=== PATIENT | male | born 1950 | race Caucasian/White ===

== ENCOUNTER 2018-12-26 22:57 | Inpatient (IN) ==
[2018-12-27] MEDS ORDERED: CEFEPIME 2,000 MG in SODIUM CHLORIDE 0.9% 100 ML IV STA (00:26)
[2018-12-27] MEDS ORDERED: VANCOMYCIN INJ 1,750 MG in SODIUM CHLORIDE 0.9% 250 ML IV STA (00:26)
[2018-12-27] MEDS ORDERED: metroNIDAZOLE INJ 500 MG in PREMIX 1 EACH IV STA (00:26)
[2018-12-27] MEDS ORDERED: SODIUM CHLORIDE 0.9% 1,000 ML IV STA ×2 (00:26→03:45)
[2018-12-27 00:33] LABS: Basophils % 0.4 % (0.0-0.8); Eosinophils % 0.1 % (0.00-10.9); Hematocrit 35.7 VOL% (42.0-52.0); Hemoglobin 11.5 GM/DL (14.0-18.0); Immature Granulocytes % 1.7 %; Immature Granulocytes Absolute 0.14 #; Lymphocytes # 0.4 10*3/uL (1.4-4.0); Lymphocytes % 5.1 % (21.2-54.2); Mean Corpuscular HGB Conc 32.2 GM/DL (32-36); Mean Corpuscular Volume 89.7 FL (87-102); Mean Platelet Volume 9.9 FL (9.6-12.0); Monocytes % 2.8 % (1.7-12.7); Neutrophils % 89.9 % (38.7-73.9); Platelet Count 253 T/CUMM (130-400); Red Blood Count 3.98 MC/CUMM (3.8-5.5); Red Cell Distribution Width 14.8 % (9.3-17.3); White Blood Count 8.1 T/CUMM (4-12)
[2018-12-27] MEDS ORDERED: VANCOMYCIN INJ 1,750 MG in SODIUM CHLORIDE 0.9% 500 ML IV STA (00:34)
[2018-12-27] MEDS ORDERED: KETOROLAC 30 MG/1 ML VIAL IV STA (00:35)
[2018-12-27] MEDS ORDERED: ACETAMINOPHEN 500 MG TABLET PO STA (00:35)
[2018-12-27 00:56] LABS: Band Neutrophils 9 % (0-10); Lymphocytes 2 % (20-55); Segmented Neutrophils 87 % (50-85); Total Cells Counted 100
[2018-12-27 00:57] LABS: Anisocytosis Slight; Platelet Estimate Adequate
[2018-12-27 01:07] LABS: Apearance,Urine CLOUDY (Clear); Bacteria,Urine Many /HPF (Few); Bilirubin,Urine Negative (Negative); Blood, Urine Moderate mg/dL (Negative); Glucose,Urine (UA) Negative (Negative); Ketones,Urine 5 mg/dL (Negative); Mucus,Urine Moderate /LPF (Occasional); Nitrite,Urine Positive (Negative); Protein,Urine 30 MG/DL; RBC,Urine 4 /HPF (0-4); Squamous Epithelial Cell,Urine Occasional /HPF (0-10); Urine Color Yellow (Yellow); Urine Specific Gravity 1.017 (1.001-1.035); Urine Urobilinogen < 2.0 EU/DL (0.2-1.0); WBC,Urine 487 /HPF (0-6)
[2018-12-27 01:37] LABS: Albumin 2.7 G/DL (3.4-5.0); Bilirubin,Total 0.6 MG/DL (0.2-1.0); Calcium 7.7 MG/DL (8.5-10.1); Osmolality,Calculated 281.1 MOS/KG (273-304); Total Protein 5.7 G/DL (6.4-8.3)
[2018-12-27] MEDS ORDERED: ACETAMINOPHEN 325 MG TABLET PO PRN (03:48)
[2018-12-27] MEDS ORDERED: ONDANSETRON 4 MG/2 ML VIAL IV PRN (03:48)
[2018-12-27] MEDS ORDERED: NOREPINEPHRINE 8 MG in SODIUM CHLORIDE 0.9% 242 ML IV PRN (04:01)
[2018-12-27] MEDS: SODIUM CHLORIDE 0.9% 1,000 ML IV SCH ×2 (04:51→14:55)
[2018-12-27] MEDS: POTASSIUM CHLORIDE RIDER 10 MEQ in PREMIX 1 EACH IV PRN ×3 (08:09→11:54)
[2018-12-27] MEDS: CEFEPIME 2,000 MG in SYRINGE 1 EACH IV SCH ×2 (10:14→17:38)
[2018-12-27] MEDS ORDERED: metroNIDAZOLE INJ 500 MG in PREMIX 1 EACH IV SCH (12:00)
[2018-12-27] MEDS: SODIUM CHLOR 0.9% KCL 20 MEQ 20 MEQ/1,000 ML BAG IV SCH ×2 (13:36→23:21)
[2018-12-27] MEDS: VANCOMYCIN INJ 1,500 MG in SODIUM CHLORIDE 0.9% 500 ML IV SCH (15:43)
[2018-12-27] MEDS: METOPROLOL TARTRATE 25 MG TABLET PO SCH (21:39)
[2018-12-28] MEDS: CEFEPIME 2,000 MG in SYRINGE 1 EACH IV SCH ×3 (00:24→17:58)
[2018-12-28] MEDS: VANCOMYCIN INJ 1,500 MG in SODIUM CHLORIDE 0.9% 500 ML IV SCH ×2 (04:05→15:56)
[2018-12-28 04:28] LABS: Basophils % 0.3 % (0.0-0.8); Eosinophils # 0.1 10*3/uL (0.0-0.87); Eosinophils % 1.4 % (0.00-10.9); Hematocrit 31.7 VOL% (42.0-52.0); Hemoglobin 10.1 GM/DL (14.0-18.0); Immature Granulocytes % 0.6 %; Immature Granulocytes Absolute 0.04 #; Lymphocytes % 13.7 % (21.2-54.2); Mean Corpuscular HGB Conc 31.9 GM/DL (32-36); Mean Corpuscular Volume 90.1 FL (87-102); Mean Platelet Volume 10.2 FL (9.6-12.0); Monocytes % 9.8 % (1.7-12.7); Neutrophils % 74.2 % (38.7-73.9); Platelet Count 203 T/CUMM (130-400); Red Blood Count 3.52 MC/CUMM (3.8-5.5); Red Cell Distribution Width 15.3 % (9.3-17.3); White Blood Count 7.2 T/CUMM (4-12)
[2018-12-28 05:08] LABS: Albumin 2.3 G/DL (3.4-5.0); Bilirubin,Total 0.5 MG/DL (0.2-1.0); Calcium 6.8 MG/DL (8.5-10.1); Osmolality,Calculated 279.3 MOS/KG (273-304); Risk Ratio 2.93; Thyroid Stimulating Hormone 4.24 uIU/ml (0.358-3.74); Total Protein 5.3 G/DL (6.4-8.3)
[2018-12-28 05:37] LABS: Sedimentation Rate-Westergren 65 MM/HR (0-20)
[2018-12-28] MEDS: POTASSIUM CHLORIDE RIDER 10 MEQ in PREMIX 1 EACH IV PRN ×3 (05:38→13:09)
[2018-12-28] MEDS: METOPROLOL TARTRATE 25 MG TABLET PO SCH ×2 (08:58→21:46)
[2018-12-28] MEDS: Lenalidomide [Revlimid] 5 MG PO SCH (09:06)
[2018-12-28] MEDS: SODIUM CHLOR 0.9% KCL 20 MEQ 20 MEQ/1,000 ML BAG IV SCH ×2 (13:53→20:15)
[2018-12-29] MEDS: CEFEPIME 2,000 MG in SYRINGE 1 EACH IV SCH ×3 (01:44→16:44)
[2018-12-29] MEDS: VANCOMYCIN INJ 1,750 MG in SODIUM CHLORIDE 0.9% 500 ML IV SCH ×2 (04:24→16:51)
[2018-12-29] MEDS: SODIUM CHLOR 0.9% KCL 20 MEQ 20 MEQ/1,000 ML BAG IV SCH ×3 (04:27→16:48)
[2018-12-29 04:54] LABS: Basophils # 0.1 10*3/uL (0.0-0.2); Basophils % 0.9 % (0.0-0.8); Eosinophils # 0.3 10*3/uL (0.0-0.87); Eosinophils % 5.6 % (0.00-10.9); Hematocrit 33.2 VOL% (42.0-52.0); Hemoglobin 10.5 GM/DL (14.0-18.0); Immature Granulocytes % 0.2 %; Immature Granulocytes Absolute 0.01 #; Lymphocytes # 0.9 10*3/uL (1.4-4.0); Lymphocytes % 15.9 % (21.2-54.2); Mean Corpuscular HGB Conc 31.6 GM/DL (32-36); Mean Corpuscular Volume 90.2 FL (87-102); Mean Platelet Volume 10.4 FL (9.6-12.0); Monocytes % 9.2 % (1.7-12.7); Neutrophils % 68.2 % (38.7-73.9); Platelet Count 215 T/CUMM (130-400); Red Blood Count 3.68 MC/CUMM (3.8-5.5); Red Cell Distribution Width 15.3 % (9.3-17.3); White Blood Count 5.6 T/CUMM (4-12)
[2018-12-29 05:25] LABS: Albumin 2.1 G/DL (3.4-5.0); Calcium 7.6 MG/DL (8.5-10.1); Total Protein 5.3 G/DL (6.4-8.3)
[2018-12-29] MEDS: METOPROLOL TARTRATE 25 MG TABLET PO SCH ×2 (08:35→21:09)
[2018-12-29] MEDS: Lenalidomide [Revlimid] 5 MG PO SCH (08:37)
[2018-12-30] MEDS: SODIUM CHLOR 0.9% KCL 20 MEQ 20 MEQ/1,000 ML BAG IV SCH ×3 (01:02→15:48)
[2018-12-30] MEDS: CEFEPIME 2,000 MG in SYRINGE 1 EACH IV SCH (01:02)
[2018-12-30] MEDS: VANCOMYCIN INJ 1,750 MG in SODIUM CHLORIDE 0.9% 500 ML IV SCH (05:00)
[2018-12-30] MEDS ORDERED: LEVOFLOXACIN INJ 500 MG in PREMIX 1 EACH IV SCH (08:30)
[2018-12-30] MEDS: METOPROLOL TARTRATE 25 MG TABLET PO SCH (10:35)
[2018-12-30] MEDS: Lenalidomide [Revlimid] 5 MG PO SCH (10:35)
[2018-12-30 11:31] VITALS: BP 142/82
[2018-12-30] MEDS ORDERED: POTASSIUM CHLORIDE 10 MEQ TABLET PO SCH (21:00)
[2018-12-31] MEDS ORDERED: LEVOFLOXACIN 500 MG TABLET PO SCH (09:00)
== END 2018-12-30 17:05 | disposition home or self-care (01) | DRG 699 ==
LOC: EDUNIT# → EDBD → N.ED 22:57 → N.EDINP 12-27 03:39 → N.ICU 12-27 04:16 → N.4E 12-27 14:37
PROVIDERS: ADMIT Family Medicine; ATTEND Family Medicine

== ENCOUNTER 2019-01-07 22:38 | Inpatient (IN) ==
[2019-01-07 23:33] LABS: Basophils # 0.1 10*3/uL (0.0-0.2); Basophils % 1.6 % (0.0-0.8); Eosinophils # 0.1 10*3/uL (0.0-0.87); Eosinophils % 1.7 % (0.00-10.9); Hematocrit 41.3 VOL% (42.0-52.0); Hemoglobin 13.2 GM/DL (14.0-18.0); Immature Granulocytes % 0.7 %; Immature Granulocytes Absolute 0.05 #; Lymphocytes # 1.9 10*3/uL (1.4-4.0); Lymphocytes % 24.9 % (21.2-54.2); Mean Corpuscular Volume 88.1 FL (87-102); Mean Platelet Volume 9.7 FL (9.6-12.0); Monocytes % 10.6 % (1.7-12.7); Neutrophils % 60.5 % (38.7-73.9); Platelet Count 428 T/CUMM (130-400); Red Blood Count 4.69 MC/CUMM (3.8-5.5); Red Cell Distribution Width 15.8 % (9.3-17.3); White Blood Count 7.6 T/CUMM (4-12)
[2019-01-07 23:45] LABS: PT Patient Result 10.7 SECS; Partial Thromboplastin Time 28.5 SECS (0-40)
[2019-01-07 23:57] LABS: Albumin 3.4 G/DL (3.4-5.0); Bilirubin,Total 0.4 MG/DL (0.2-1.0); Calcium 9.6 MG/DL (8.5-10.1); Osmolality,Calculated 275.7 MOS/KG (273-304); Total Protein 7.3 G/DL (6.4-8.3)
[2019-01-08] MEDS ORDERED: FUROSEMIDE 100 MG/10 ML VIAL IV STA (00:56)
[2019-01-08] MEDS ORDERED: methylPREDNISolone SOD SUC 125 MG/2 ML VIAL IV STA (00:56)
[2019-01-08] MEDS ORDERED: ALBUTEROL/IPRATROPIUM 3 ML NEB RESP TX STA (00:56)
[2019-01-08] MEDS ORDERED: ENOXAPARIN 100 MG/ML SYRINGE SUBCUT STA ×2 (01:23→01:43)
[2019-01-08] MEDS ORDERED: ACETAMINOPHEN 325 MG TABLET PO PRN (02:16)
[2019-01-08] MEDS ORDERED: ONDANSETRON 4 MG/2 ML VIAL IV PRN (02:16)
[2019-01-08] MEDS ORDERED: ALBUTEROL/IPRATROPIUM 3 ML NEB RESP TX PRN (02:16)
[2019-01-08] MEDS ORDERED: MORPHINE 4 MG/1 ML VIAL IV PRN (02:16)
[2019-01-08] MEDS: SODIUM CHLORIDE 0.9% 1,000 ML IV SCH (02:33)
[2019-01-08 04:42] LABS: Basophils # 0.1 10*3/uL (0.0-0.2); Basophils % 1.4 % (0.0-0.8); Eosinophils # 0.1 10*3/uL (0.0-0.87); Eosinophils % 0.7 % (0.00-10.9); Hematocrit 42.7 VOL% (42.0-52.0); Hemoglobin 13.8 GM/DL (14.0-18.0); Immature Granulocytes % 0.7 %; Immature Granulocytes Absolute 0.06 #; Lymphocytes # 1.2 10*3/uL (1.4-4.0); Lymphocytes % 14.5 % (21.2-54.2); Mean Corpuscular HGB Conc 32.3 GM/DL (32-36); Mean Corpuscular Volume 87.3 FL (87-102); Monocytes % 6.7 % (1.7-12.7); Platelet Count 440 T/CUMM (130-400); Red Blood Count 4.89 MC/CUMM (3.8-5.5); Red Cell Distribution Width 15.6 % (9.3-17.3); White Blood Count 8.1 T/CUMM (4-12)
[2019-01-08 05:01] LABS: Albumin 3.5 G/DL (3.4-5.0); Bilirubin,Total 0.6 MG/DL (0.2-1.0); Calcium 9.5 MG/DL (8.5-10.1); Osmolality,Calculated 276.5 MOS/KG (273-304); Risk Ratio 3.86; Total Protein 7.2 G/DL (6.4-8.3); VLDL CHOLESTEROL 16.4 MG/DL
[2019-01-08] MEDS: FUROSEMIDE 20 MG/2 ML VIAL IV SCH ×2 (08:38→15:02)
[2019-01-08] MEDS: DOCUSATE SODIUM 100 MG CAPSULE PO SCH ×2 (08:38→22:38)
[2019-01-08] MEDS: PANTOPRAZOLE 40 MG TABLET PO SCH (08:38)
[2019-01-08] MEDS: SOTALOL 80 MG TABLET PO SCH ×2 (08:38→22:38)
[2019-01-08 09:23] LABS: Troponin I < 0.015 NG/ML (0.00-0.045)
[2019-01-08] MEDS: ASPIRIN EC 81 MG TABLET PO SCH (10:00)
[2019-01-08] MEDS: POTASSIUM CHLORIDE 20 MEQ TABLET PO PRN ×3 (10:00→14:55)
[2019-01-08 13:04] LABS: Apearance,Urine CLEAR (Clear); Bilirubin,Urine Negative (Negative); Blood, Urine Moderate mg/dL (Negative); Glucose,Urine (UA) Negative (Negative); Ketones,Urine Negative (Negative); Nitrite,Urine Negative (Negative); Protein,Urine Negative; Urine Color Yellow (Yellow); Urine Specific Gravity 1.012 (1.001-1.035); Urine Urobilinogen < 2.0 EU/DL (0.2-1.0)
[2019-01-08 13:09] LABS: Bacteria,Urine Rare /HPF (Few); RBC,Urine Rare /HPF (0-4); WBC,Urine Rare /HPF (0-6)
[2019-01-08] MEDS ORDERED: ENOXAPARIN 100 MG/ML SYRINGE SUBCUT ONE (14:00)
[2019-01-08] MEDS ORDERED: ENOXAPARIN 40 MG/0.4 ML SYRINGE SUBCUT SCH (18:00)
[2019-01-08] MEDS ORDERED: ATORVASTATIN 20 MG TABLET PO SCH (21:00)
[2019-01-09 04:31] LABS: Basophils # 0.1 10*3/uL (0.0-0.2); Basophils % 0.8 % (0.0-0.8); Eosinophils # 0.1 10*3/uL (0.0-0.87); Eosinophils % 0.9 % (0.00-10.9); Hematocrit 38.7 VOL% (42.0-52.0); Hemoglobin 12.2 GM/DL (14.0-18.0); Immature Granulocytes % 0.8 %; Immature Granulocytes Absolute 0.06 #; Lymphocytes # 1.5 10*3/uL (1.4-4.0); Lymphocytes % 18.9 % (21.2-54.2); Mean Corpuscular HGB Conc 31.5 GM/DL (32-36); Mean Corpuscular Volume 89.2 FL (87-102); Monocytes % 13.2 % (1.7-12.7); Neutrophils % 65.4 % (38.7-73.9); Platelet Count 392 T/CUMM (130-400); Red Blood Count 4.34 MC/CUMM (3.8-5.5); Red Cell Distribution Width 15.5 % (9.3-17.3); White Blood Count 7.9 T/CUMM (4-12)
[2019-01-09 04:52] LABS: Albumin 3.1 G/DL (3.4-5.0); Bilirubin,Total 0.6 MG/DL (0.2-1.0); Calcium 9.2 MG/DL (8.5-10.1); Osmolality,Calculated 277.7 MOS/KG (273-304); Total Protein 6.4 G/DL (6.4-8.3)
[2019-01-09] MEDS ORDERED: diphenhydrAMINE CAP 25 MG CAPSULE PO ONE (06:00)
[2019-01-09] MEDS ORDERED: MAGNESIUM SULF RIDER 2 GM in PREMIX 1 EACH IV PRN (06:00)
[2019-01-09] MEDS ORDERED: DIAZEPAM 5 MG TABLET PO ONE (06:00)
[2019-01-09] MEDS: POTASSIUM CHLORIDE 20 MEQ TABLET PO PRN (06:07)
[2019-01-09] MEDS: SODIUM CHLORIDE 0.9% 1,000 ML IV SCH (08:01)
[2019-01-09] MEDS: FUROSEMIDE 20 MG/2 ML VIAL IV SCH ×2 (08:02→15:59)
[2019-01-09] MEDS: SOTALOL 80 MG TABLET PO SCH (08:02)
[2019-01-09] MEDS: ASPIRIN EC 81 MG TABLET PO SCH (08:03)
[2019-01-09] MEDS: PANTOPRAZOLE 40 MG TABLET PO SCH (08:04)
[2019-01-09] MEDS: DOCUSATE SODIUM 100 MG CAPSULE PO SCH (08:11)
[2019-01-09] MEDS ORDERED: LEVOFLOXACIN 500 MG TABLET PO SCH (09:00)
[2019-01-09] MEDS ORDERED: Lenalidomide [Revlimid] 5 MG PO SCH ×2 (09:00→21:00)
[2019-01-09] MEDS ORDERED: LIDOCAINE 1% 20 ML VIAL ONE (09:29)
[2019-01-09] MEDS ORDERED: MIDAZOLAM 2 MG/2 ML VIAL ONE (09:30)
[2019-01-09] MEDS ORDERED: fentaNYL 100 MCG/2 ML VIAL ONE (09:30)
[2019-01-09 15:22] VITALS: BP 112/61
[2019-01-09] MEDS ORDERED: APIXABAN 5 MG TABLET PO SCH (21:00)
[2019-01-09] MEDS ORDERED: POTASSIUM CHLORIDE 10 MEQ TABLET PO SCH (21:00)
[2019-01-10] MEDS ORDERED: ENOXAPARIN 40 MG/0.4 ML SYRINGE SUBCUT SCH (05:00)
== END 2019-01-09 18:40 | disposition home or self-care (01) | DRG 287 ==
LOC: N.EDINP 22:38 → N.ED 22:38 → N.TELES 01-08 01:52
PROVIDERS: ADMIT Family Medicine; ATTEND Family Medicine

== ENCOUNTER 2019-01-15 09:00 | Inpatient (IN) ==
[~2019-01-15 09:00] MED LIST: CEFUROXIME INJ 1,500 MG in SYRINGE 1 EACH IV ONE; CLORAZEPATE 7.5 MG TABLET PO PRN; DEXTROSE 50% 25 GM/50 ML VIAL IV PRN; GLUCAGON 1 MG VIAL IM PRN; LENALIDOMIDE 5 MG PO SCH; ZALEPLON 5 MG CAPSULE PO PRN
[2019-01-15] MEDS: POTASSIUM CHLORIDE 10 MEQ TABLET PO SCH ×2 (10:37→20:15)
[2019-01-15] MEDS: CHLORHEXIDINE 4% SOLN 118 ML BOTTLE TOP SCH (10:43)
[2019-01-15] MEDS: SOTALOL 80 MG TABLET PO SCH ×2 (10:43→20:15)
[2019-01-15 10:47] LABS: Basophils # 0.1 10*3/uL (0.0-0.2); Basophils % 0.9 % (0.0-0.8); Eosinophils # 0.3 10*3/uL (0.0-0.87); Eosinophils % 3.9 % (0.00-10.9); Hematocrit 41.4 VOL% (42.0-52.0); Hemoglobin 12.9 GM/DL (14.0-18.0); Immature Granulocytes % 0.8 %; Immature Granulocytes Absolute 0.05 #; Lymphocytes # 1.4 10*3/uL (1.4-4.0); Lymphocytes % 22.6 % (21.2-54.2); Mean Corpuscular HGB Conc 31.2 GM/DL (32-36); Mean Platelet Volume 9.9 FL (9.6-12.0); Neutrophils % 61.8 % (38.7-73.9); Platelet Count 301 T/CUMM (130-400); Red Cell Distribution Width 15.3 % (9.3-17.3); White Blood Count 6.3 T/CUMM (4-12)
[2019-01-15] MEDS ORDERED: CEFUROXIME INJ 1,500 MG in SYRINGE 1 EACH IV ONE (11:00)
[2019-01-15 11:28] LABS: Albumin 3.1 G/DL (3.4-5.0); Bilirubin,Total 0.4 MG/DL (0.2-1.0); Calcium 8.9 MG/DL (8.5-10.1); Osmolality,Calculated 278.4 MOS/KG (273-304); Total Protein 6.5 G/DL (6.4-8.3)
[2019-01-15 12:14] LABS: ABG Base Excess 0.8 MMOL/L (-2.5-2.5); ABG Oxygen Saturation 96.1 % (95-100); ABG PCO2 34.1 MM HG (35-48); ABG PH 7.457 (7.35-7.45); ABG PO2 79.4 MM HG (80-95); ABG TCO2 20.9 MMOL/L (23-27)
[2019-01-15] MEDS: CHLORHEXIDINE 0.12% ORAL RINSE 60 ML BOTTLE SWISH/SPIT SCH ×2 (15:19→20:42)
[2019-01-15] MEDS ORDERED: SODIUM PHOSPHATE ENEMA 133 ML BOTTLE RECTAL ONE ×2 (20:25→20:32)
[2019-01-15] MEDS ORDERED: ATORVASTATIN 20 MG TABLET PO SCH (21:00)
[2019-01-16] MEDS ORDERED: PAPAVERINE 60 MG/2 ML VIAL ONE (04:29)
[2019-01-16] MEDS ORDERED: VANCOMYCIN 1,000 MG VIAL ONE (04:29)
[2019-01-16] MEDS: SODIUM CHLORIDE 0.9% 1,000 ML IV SCH ×2 (05:44→19:09)
[2019-01-16] MEDS ORDERED: CEFUROXIME INJ 1,500 MG in SYRINGE 1 EACH IV ONE (06:00)
[2019-01-16] MEDS ORDERED: FAMOTIDINE 20 MG TABLET PO ONE (06:00)
[2019-01-16] MEDS ORDERED: DIAZEPAM 5 MG TABLET PO ONE (06:00)
[2019-01-16 07:57] LABS: ABG Base Excess -0.8 MMOL/L (-2.5-2.5); ABG HCO3 23.8 MMOL/L (20-26); ABG Oxygen Saturation 99.6 % (95-100); ABG PCO2 37.4 MM HG (35-48); ABG PH 7.407 (7.35-7.45); ABG TCO2 20.6 MMOL/L (23-27); Glucose Heart Surgery 121 MG/DL (74-106); Hematocrit Heart Surgery 38.8 PERCENT (42-52); Hemoglobin Heart Surgery 12.6 G/DL (14.0-18.0); Ionized Calcium Arterial 1.17 MMOL/L (1.21-1.46); PCO2 Patient Temp Arterial 37.4 MMHG; PH Patient Temp Arterial 7.407; Patient Temperature 37 CELCIUS; Potassium Heart/CVR 3.9 MMOL/L (3.5-5.1); Sodium Heart/CVR 138 MMOL/L (135-145)
[2019-01-16 09:28] LABS: Hematocrit Heart Surgery 28.7 PERCENT (42-52); Hemoglobin Heart Surgery 9.3 G/DL (14.0-18.0); PCO2 Patient Temp Venous 31.9 MM HG; PH Patient Temp Venous 7.463; PO2 Patient Temp Venous 42.9 MM HG; Potassium Heart/CVR 4.8 MMOL/L (3.5-5.1); VBG Base Excess -0.4 MEQ/L (0-4); VBG HCO3 23.9 MEQ/L (24-28); VBG Oxygen Saturation 86.8 %; VBG PCO2 36.9 MMHG (41-51); VBG PH 7.419; VBG PO2 52.7 MMHG (17-40)
[2019-01-16] MEDS ORDERED: PHENYLEPHRINE DRIP 40 MG/250 ML PREMIX IV ONE (10:01)
[2019-01-16] MEDS ORDERED: NITROPRUSSIDE 50 MG/2 ML VIAL ONE (10:01)
[2019-01-16] MEDS ORDERED: ALBUMIN 5% 12.5 GM/250 ML VIAL IV ONE (10:02)
[2019-01-16] MEDS ORDERED: SODIUM BICARBONATE 50 MEQ/50 ML VIAL IV ONE ×2 (10:02→10:43)
[2019-01-16] MEDS ORDERED: POTASSIUM CHLORIDE RIDER 100 ML IV ONE (10:02)
[2019-01-16 10:03] LABS: Hemoglobin Heart Surgery 10.9 G/DL (14.0-18.0); PCO2 Patient Temp Venous 38.5 MM HG; PH Patient Temp Venous 7.418; PO2 Patient Temp Venous 45.7 MM HG; Potassium Heart/CVR 5.5 MMOL/L (3.5-5.1); VBG Base Excess -0.1 MEQ/L (0-4); VBG HCO3 24.3 MEQ/L (24-28); VBG Oxygen Saturation 79.2 %; VBG PCO2 38.5 MMHG (41-51); VBG PH 7.418; VBG PO2 45.7 MMHG (17-40)
[2019-01-16 10:31] LABS: ABG Base Excess -2.1 MMOL/L (-2.5-2.5); ABG HCO3 22.7 MMOL/L (20-26); ABG PCO2 38.2 MM HG (35-48); ABG PH 7.381 (7.35-7.45); ABG TCO2 20.5 MMOL/L (23-27); Glucose Heart Surgery 174 MG/DL (74-106); Hemoglobin Heart Surgery 10.7 G/DL (14.0-18.0); Ionized Calcium Arterial 1.25 MMOL/L (1.21-1.46); PCO2 Patient Temp Arterial 38.2 MMHG; PH Patient Temp Arterial 7.381; Patient Temperature 37 CELCIUS; Potassium Heart/CVR 4.5 MMOL/L (3.5-5.1); Sodium Heart/CVR 137 MMOL/L (135-145)
[2019-01-16] MEDS ORDERED: MANNITOL 100 GM/500 ML BAG IV ONE (10:43)
[2019-01-16] MEDS ORDERED: PROTAMINE SULFATE 250 MG/25 ML VIAL IV ONE (10:43)
[2019-01-16] MEDS ORDERED: ALBUMIN 25% 25 GM/100 ML VIAL IV ONE (10:43)
[2019-01-16] MEDS ORDERED: DEXTROSE 5% KCL 20 MEQ 20 MEQ/1,000 ML BAG IV ONE (10:43)
[2019-01-16] MEDS ORDERED: MAGNESIUM SULFATE 5 GM/10 ML VIAL IV ONE (10:44)
[2019-01-16] MEDS ORDERED: PROTAMINE SULFATE 50 MG/5 ML VIAL IV ONE ×2 (10:44→11:21)
[2019-01-16] MEDS ORDERED: methylPREDNISolone SOD SUC 1,000 MG/8 ML VIAL ONE (10:44)
[2019-01-16] MEDS ORDERED: HEPARIN 10,000 UNIT/10 ML VIAL ONE (10:44)
[2019-01-16] MEDS ORDERED: FUROSEMIDE 20 MG/2 ML VIAL ONE (10:44)
[2019-01-16] MEDS ORDERED: SUFentanil 50 MCG/ML AMP ONE (10:45)
[2019-01-16] MEDS ORDERED: PHENYLEPHRINE DRIP 40 MG/250 ML PREMIX IV PRN (11:20)
[2019-01-16] MEDS ORDERED: MORPHINE 10 MG/1 ML VIAL IV PRN (11:20)
[2019-01-16] MEDS ORDERED: PHENYLEPHRINE DRIP 20 MG/250 ML PREMIX IV ONE (11:20)
[2019-01-16] MEDS ORDERED: VECURONIUM 10 MG VIAL IV ONE (11:20)
[2019-01-16] MEDS ORDERED: MAGNESIUM SULF RIDER 4 GM in PREMIX 1 EACH IV PRN (11:20)
[2019-01-16] MEDS ORDERED: NITROPRUSSIDE 100 MG in DEXTROSE 5% 250 ML IV PRN (11:20)
[2019-01-16] MEDS ORDERED: ONDANSETRON 4 MG/2 ML VIAL IV PRN (11:20)
[2019-01-16] MEDS ORDERED: MIDAZOLAM 10 MG/2 ML VIAL IV PRN (11:20)
[2019-01-16] MEDS ORDERED: VECURONIUM 10 MG VIAL IV PRN ×2 (11:20)
[2019-01-16] MEDS ORDERED: SEVOFLURANE 1 UNIT/15 MINUTE INH ONE (11:20)
[2019-01-16] MEDS ORDERED: ACETAMINOPHEN 650 MG SUPP RECTAL PRN (11:20)
[2019-01-16] MEDS ORDERED: MIDAZOLAM 10 MG/2 ML VIAL ONE (11:20)
[2019-01-16] MEDS ORDERED: DEXTROSE 50% 25 GM/50 ML SYRINGE IV PRN ×2 (11:20)
[2019-01-16] MEDS ORDERED: INSULIN REGULAR 100 UNIT/ML IV ONE (11:20)
[2019-01-16] MEDS ORDERED: LACTATED RINGERS 250 ML IV PRN (11:20)
[2019-01-16] MEDS ORDERED: CALCIUM CHLORIDE 1,000 MG/10 ML SYRINGE IV PRN (11:20)
[2019-01-16] MEDS ORDERED: MAGNESIUM SULF RIDER 2 GM in PREMIX 1 EACH IV PRN (11:20)
[2019-01-16] MEDS ORDERED: MORPHINE 4 MG/1 ML VIAL IV PRN (11:20)
[2019-01-16] MEDS ORDERED: INSULIN REGULAR 100 UNIT/ML IV PRN (11:20)
[2019-01-16] MEDS ORDERED: SUFentanil 250 MCG/5 ML AMP ONE (11:20)
[2019-01-16] MEDS ORDERED: MIDAZOLAM 2 MG/2 ML VIAL IV PRN (11:20)
[2019-01-16] MEDS ORDERED: CALCIUM CHLORIDE 1,000 MG/10 ML VIAL IV ONE (11:20)
[2019-01-16] MEDS ORDERED: HEPARIN/NACL 0.9% 2 UNITS/ML 500 ML IV ONE (11:21)
[2019-01-16] MEDS ORDERED: SODIUM CHLORIDE 0.9% 100 ML IV ONE (11:21)
[2019-01-16] MEDS ORDERED: SODIUM CHLORIDE 0.9% 250 ML IV ONE (11:21)
[2019-01-16] MEDS ORDERED: AMINOCAPROIC ACID 5,000 MG/20 ML VIAL ONE (11:21)
[2019-01-16] MEDS ORDERED: SODIUM CHLORIDE 0.9% 1,000 ML IV ONE (11:21)
[2019-01-16] MEDS ORDERED: SODIUM CHLORIDE 0.45% 1,000 ML IV SCH ×2 (11:30)
[2019-01-16] MEDS ORDERED: INSULIN REGULAR DRIP 100 ML IV SCH (11:30)
[2019-01-16] MEDS: KETOROLAC 30 MG/1 ML VIAL IV SCH ×2 (11:36→17:27)
[2019-01-16] MEDS: ALBUMIN 5% 12.5 GM in PREMIX 1 EACH IV PRN ×4 (11:45→15:17)
[2019-01-16] MEDS ORDERED: AMIODARONE 150 MG/3 ML VIAL ONE (12:09)
[2019-01-16 12:12] LABS: ABG Base Excess -1.9 MMOL/L (-2.5-2.5); ABG HCO3 22.8 MMOL/L (20-26); ABG Oxygen Saturation 98.8 % (95-100); ABG PCO2 39.8 MM HG (35-48); ABG PH 7.372 (7.35-7.45); ABG TCO2 20.8 MMOL/L (23-27); Glucose Heart Surgery 157 MG/DL (74-106); Hematocrit Heart Surgery 34.1 PERCENT (42-52); Potassium Heart/CVR 3.9 MMOL/L (3.5-5.1)
[2019-01-16 12:16] LABS: Basophils # 0.1 10*3/uL (0.0-0.2); Basophils % 0.5 % (0.0-0.8); Eosinophils # 0.1 10*3/uL (0.0-0.87); Eosinophils % 1.4 % (0.00-10.9); Hematocrit 34.3 VOL% (42.0-52.0); Immature Granulocytes % 0.8 %; Immature Granulocytes Absolute 0.08 #; Lymphocytes # 1.2 10*3/uL (1.4-4.0); Lymphocytes % 12.7 % (21.2-54.2); Mean Corpuscular HGB Conc 31.8 GM/DL (32-36); Monocytes % 7.6 % (1.7-12.7); Platelet Count 229 T/CUMM (130-400); Red Blood Count 3.81 MC/CUMM (3.8-5.5); Red Cell Distribution Width 15.3 % (9.3-17.3); White Blood Count 9.7 T/CUMM (4-12)
[2019-01-16] MEDS ORDERED: AMIODARONE INJ 150 MG in DEXTROSE 5% 100 ML IV ONE (12:16)
[2019-01-16 12:17] LABS: Hemoglobin 10.9 GM/DL (14.0-18.0)
[2019-01-16 12:23] LABS: INR 1.1; PT Patient Result 11.9 SECS; Partial Thromboplastin Time 28.2 SECS (0-40)
[2019-01-16 12:30] LABS: Albumin 2.9 G/DL (3.4-5.0); Bilirubin,Total 0.7 MG/DL (0.2-1.0); Calcium 7.8 MG/DL (8.5-10.1); Osmolality,Calculated 289.6 MOS/KG (273-304)
[2019-01-16] MEDS ORDERED: AMIODARONE INJ 450 MG in DEXTROSE 5% 241 ML IV SCH (12:30)
[2019-01-16] MEDS: POTASSIUM CHLORIDE RIDER 20 MEQ in PREMIX 1 EACH IV PRN ×2 (12:34→19:31)
[2019-01-16 12:35] LABS: Troponin I 4.3 NG/ML (0.00-0.045)
[2019-01-16] MEDS: LACTATED RINGERS 1,000 ML IV PRN ×3 (13:17→14:19)
[2019-01-16] MEDS: POTASSIUM CHLORIDE RIDER 10 MEQ in PREMIX 1 EACH IV PRN (14:50)
[2019-01-16 16:08] LABS: ABG Base Excess -1.3 MMOL/L (-2.5-2.5); ABG HCO3 23.6 MMOL/L (20-26); ABG Oxygen Saturation 98.5 % (95-100); ABG PCO2 40.4 MM HG (35-48); ABG PH 7.385 (7.35-7.45); ABG PO2 179.3 MM HG (80-95); ABG TCO2 24.9 MMOL/L (23-27); Glucose Heart Surgery 107 MG/DL (74-106); Hemoglobin Heart Surgery 10.7 G/DL (14.0-18.0); Potassium Heart/CVR 4.1 MMOL/L (3.5-5.1)
[2019-01-16] MEDS ORDERED: FUROSEMIDE 40 MG/4 ML VIAL IV ONE (18:29)
[2019-01-16] MEDS: CEFUROXIME INJ 1,500 MG in SYRINGE 1 EACH IV SCH (18:36)
[2019-01-16 19:05] LABS: ABG Base Excess -0.9 MMOL/L (-2.5-2.5); ABG HCO3 23.7 MMOL/L (20-26); ABG Oxygen Saturation 98.8 % (95-100); ABG PH 7.394 (7.35-7.45); ABG TCO2 21.6 MMOL/L (23-27); Glucose Heart Surgery 125 MG/DL (74-106); Hematocrit Heart Surgery 32.3 PERCENT (42-52); Hemoglobin Heart Surgery 10.4 G/DL (14.0-18.0); Potassium Heart/CVR 4.1 MMOL/L (3.5-5.1)
[2019-01-16] MEDS: CHLORHEXIDINE 4% SOLN 118 ML BOTTLE TOP SCH (19:09)
[2019-01-16] MEDS: CHLORHEXIDINE 0.12% ORAL RINSE 60 ML BOTTLE SWISH/SPIT SCH ×2 (19:10→20:26)
[2019-01-16] MEDS: SOTALOL 80 MG TABLET PO SCH (19:10)
[2019-01-16] MEDS: POTASSIUM CHLORIDE 10 MEQ TABLET PO SCH (19:10)
[2019-01-16 19:48] LABS: Troponin I 3.63 NG/ML (0.00-0.045)
[2019-01-16 20:26] LABS: ABG Base Excess -0.3 MMOL/L (-2.5-2.5); ABG HCO3 23.4 MMOL/L (20-26); ABG Oxygen Saturation 98.3 % (95-100); ABG PH 7.443 (7.35-7.45); ABG PO2 134.6 MM HG (80-95); ABG TCO2 24.5 MMOL/L (23-27); Glucose Heart Surgery 105 MG/DL (74-106); Hemoglobin Heart Surgery 11.1 G/DL (14.0-18.0); Potassium Heart/CVR 4.4 MMOL/L (3.5-5.1)
[2019-01-16] MEDS: AMIODARONE INJ 450 MG in DEXTROSE 5% 241 ML IV SCH (21:24)
[2019-01-16 21:35] LABS: ABG HCO3 23.9 MMOL/L (20-26); ABG Oxygen Saturation 98.1 % (95-100); ABG PCO2 36.2 MM HG (35-48); ABG PH 7.438 (7.35-7.45); ABG PO2 134.9 MM HG (80-95); Glucose Heart Surgery 110 MG/DL (74-106); Hemoglobin Heart Surgery 11.2 G/DL (14.0-18.0); Potassium Heart/CVR 4.1 MMOL/L (3.5-5.1)
[2019-01-17 00:13] LABS: ABG Base Excess -0.8 MMOL/L (-2.5-2.5); ABG HCO3 23.1 MMOL/L (20-26); ABG Oxygen Saturation 97.9 % (95-100); ABG PCO2 35.7 MM HG (35-48); ABG PH 7.429 (7.35-7.45); ABG PO2 121.8 MM HG (80-95); ABG TCO2 24.2 MMOL/L (23-27); Glucose Heart Surgery 121 MG/DL (74-106); Hemoglobin Heart Surgery 11.2 G/DL (14.0-18.0); Potassium Heart/CVR 3.8 MMOL/L (3.5-5.1)
[2019-01-17] MEDS: POTASSIUM CHLORIDE RIDER 20 MEQ in PREMIX 1 EACH IV PRN ×2 (00:23→05:47)
[2019-01-17] MEDS: KETOROLAC 30 MG/1 ML VIAL IV SCH ×4 (00:24→18:15)
[2019-01-17] MEDS: POTASSIUM CHLORIDE RIDER 10 MEQ in PREMIX 1 EACH IV PRN ×2 (01:10→06:22)
[2019-01-17 01:43] LABS: ABG HCO3 23.6 MMOL/L (20-26); ABG Oxygen Saturation 98.4 % (95-100); ABG PCO2 36.8 MM HG (35-48); ABG TCO2 21.1 MMOL/L (23-27); Glucose Heart Surgery 136 MG/DL (74-106); Hematocrit Heart Surgery 32.1 PERCENT (42-52); Hemoglobin Heart Surgery 10.4 G/DL (14.0-18.0); Potassium Heart/CVR 4.3 MMOL/L (3.5-5.1)
[2019-01-17 03:42] LABS: ABG HCO3 23.6 MMOL/L (20-26); ABG Oxygen Saturation 98.7 % (95-100); ABG PCO2 33.7 MM HG (35-48); ABG PH 7.436 (7.35-7.45); ABG TCO2 20.4 MMOL/L (23-27); Glucose Heart Surgery 139 MG/DL (74-106); Hematocrit Heart Surgery 32.1 PERCENT (42-52); Hemoglobin Heart Surgery 10.4 G/DL (14.0-18.0); Potassium Heart/CVR 3.9 MMOL/L (3.5-5.1)
[2019-01-17 03:48] LABS: Basophils % 0.2 % (0.0-0.8); Hematocrit 31.8 VOL% (42.0-52.0); Hemoglobin 10.1 GM/DL (14.0-18.0); Immature Granulocytes % 0.7 %; Immature Granulocytes Absolute 0.08 #; Lymphocytes # 1.3 10*3/uL (1.4-4.0); Lymphocytes % 10.4 % (21.2-54.2); Mean Corpuscular HGB Conc 31.8 GM/DL (32-36); Mean Corpuscular Volume 90.6 FL (87-102); Mean Platelet Volume 10.3 FL (9.6-12.0); Monocytes % 5.8 % (1.7-12.7); Neutrophils % 82.9 % (38.7-73.9); Platelet Count 245 T/CUMM (130-400); Red Blood Count 3.51 MC/CUMM (3.8-5.5); Red Cell Distribution Width 15.6 % (9.3-17.3); White Blood Count 12.3 T/CUMM (4-12)
[2019-01-17 04:07] LABS: CKMB % 12.3 %
[2019-01-17 04:10] LABS: Troponin I 3.19 NG/ML (0.00-0.045)
[2019-01-17 04:20] LABS: Albumin 3.5 G/DL (3.4-5.0); Bilirubin,Direct 0.14 MG/DL (0.0-0.20); Bilirubin,Total 0.7 MG/DL (0.2-1.0); Calcium 7.9 MG/DL (8.5-10.1); Osmolality,Calculated 286.8 MOS/KG (273-304); Total Protein 5.6 G/DL (6.4-8.3)
[2019-01-17 05:32] LABS: ABG Base Excess -0.9 MMOL/L (-2.5-2.5); ABG HCO3 23.6 MMOL/L (20-26); ABG Oxygen Saturation 98.6 % (95-100); ABG PCO2 31.6 MM HG (35-48); ABG PH 7.456 (7.35-7.45); ABG TCO2 20.1 MMOL/L (23-27); Glucose Heart Surgery 133 MG/DL (74-106); Hematocrit Heart Surgery 31.9 PERCENT (42-52); Hemoglobin Heart Surgery 10.3 G/DL (14.0-18.0); Potassium Heart/CVR 3.8 MMOL/L (3.5-5.1)
[2019-01-17 06:25] LABS: ABG Base Excess -1.3 MMOL/L (-2.5-2.5); ABG HCO3 23.3 MMOL/L (20-26); ABG Oxygen Saturation 96.4 % (95-100); ABG PCO2 32.8 MM HG (35-48); ABG PH 7.439 (7.35-7.45); ABG TCO2 20.1 MMOL/L (23-27); Glucose Heart Surgery 134 MG/DL (74-106); Hemoglobin Heart Surgery 10.3 G/DL (14.0-18.0); Potassium Heart/CVR 4.4 MMOL/L (3.5-5.1)
[2019-01-17] MEDS: CEFUROXIME INJ 1,500 MG in SYRINGE 1 EACH IV SCH (06:42)
[2019-01-17] MEDS ORDERED: DEXTROSE 50% 25 GM/50 ML VIAL IV PRN (09:17)
[2019-01-17] MEDS ORDERED: DEXTROSE 50% 25 GM/50 ML SYRINGE IV PRN (09:17)
[2019-01-17] MEDS ORDERED: MAGNESIUM HYDROXIDE SUSP 30 ML UDCUP PO PRN (09:17)
[2019-01-17] MEDS ORDERED: MAGNESIUM SULF RIDER 4 GM in PREMIX 1 EACH IV PRN (09:17)
[2019-01-17] MEDS ORDERED: ONDANSETRON 4 MG/2 ML VIAL IV PRN (09:17)
[2019-01-17] MEDS ORDERED: ACETAMINOPHEN 325 MG TABLET PO PRN (09:17)
[2019-01-17] MEDS ORDERED: MAGNESIUM SULF RIDER 2 GM in PREMIX 1 EACH IV PRN (09:17)
[2019-01-17] MEDS ORDERED: GLUCAGON 1 MG VIAL IM PRN ×2 (09:17)
[2019-01-17] MEDS ORDERED: ALUMINUM/MAGNES/SIMETH MAX STR 30 ML UDCUP PO PRN (09:17)
[2019-01-17] MEDS ORDERED: SOTALOL 80 MG TABLET PO ONE (09:19)
[2019-01-17] MEDS ORDERED: SODIUM CHLOR 0.45% KCL 20 MEQ 20 MEQ/1,000 ML BAG IV SCH (09:30)
[2019-01-17] MEDS: DOCUSATE SODIUM 100 MG CAPSULE PO SCH (09:40)
[2019-01-17] MEDS: PANTOPRAZOLE 40 MG TABLET PO SCH (09:40)
[2019-01-17] MEDS: ASPIRIN EC 325 MG TABLET PO SCH (09:41)
[2019-01-17] MEDS: FERROUS SULFATE 325 MG TABLET PO SCH (09:46)
[2019-01-17 11:24] LABS: Apearance,Urine CLEAR (Clear); Bacteria,Urine Occasional /HPF (Few); Bilirubin,Urine Negative (Negative); Blood, Urine Small mg/dL (Negative); Glucose,Urine (UA) 50 mg/dL (Negative); Ketones,Urine Negative (Negative); Nitrite,Urine Negative (Negative); Protein,Urine Negative; RBC,Urine <1 /HPF (0-4); Squamous Epithelial Cell,Urine Occasional /HPF (0-10); Urine Color Straw (Yellow); Urine Specific Gravity 1.002 (1.001-1.035); Urine Urobilinogen < 2.0 EU/DL (0.2-1.0); WBC,Urine 3 /HPF (0-6)
[2019-01-17] MEDS: AMIODARONE INJ 450 MG in DEXTROSE 5% 241 ML IV SCH (11:40)
[2019-01-17] MEDS: CHLORHEXIDINE 0.12% ORAL RINSE 60 ML BOTTLE SWISH/SPIT SCH ×2 (12:19→20:46)
[2019-01-17] MEDS ORDERED: CEFUROXIME INJ 1,500 MG in SYRINGE 1 EACH IV ONE (20:00)
[2019-01-17] MEDS: APIXABAN 5 MG TABLET PO SCH (20:46)
[2019-01-17] MEDS: ATORVASTATIN 10 MG TABLET PO SCH (20:46)
[2019-01-18] MEDS: ZALEPLON 5 MG CAPSULE PO PRN (00:36)
[2019-01-18] MEDS: AMIODARONE INJ 450 MG in DEXTROSE 5% 241 ML IV SCH ×2 (02:31→03:15)
[2019-01-18 05:34] LABS: Basophils % 0.2 % (0.0-0.8); Eosinophils % 0.1 % (0.00-10.9); Hematocrit 29.5 VOL% (42.0-52.0); Hemoglobin 9.3 GM/DL (14.0-18.0); Immature Granulocytes % 0.6 %; Immature Granulocytes Absolute 0.07 #; Lymphocytes # 1.9 10*3/uL (1.4-4.0); Lymphocytes % 15.4 % (21.2-54.2); Mean Corpuscular HGB Conc 31.5 GM/DL (32-36); Mean Platelet Volume 11.4 FL (9.6-12.0); Monocytes % 13.4 % (1.7-12.7); Neutrophils % 70.3 % (38.7-73.9); Platelet Count 198 T/CUMM (130-400); Red Blood Count 3.24 MC/CUMM (3.8-5.5); Red Cell Distribution Width 15.9 % (9.3-17.3)
[2019-01-18] MEDS ORDERED: FUROSEMIDE 40 MG/4 ML VIAL IV ONE (06:00)
[2019-01-18 06:06] LABS: Alanine Aminotransferase 19 U/L (16-61); Alkaline Phosphatase 38 U/L (45-117); Aspartate Amino Transferase 23 U/L (0-37); Bilirubin,Indirect 0.7 MG/DL (0.0-1.0); Blood Urea Nitrogen 17 MG/DL (7-18); Calcium 7.9 MG/DL (8.5-10.1); Glucose 99 MG/DL (74-106); Osmolality,Calculated 280.4 MOS/KG (273-304); Total Protein 5.5 G/DL (6.4-8.3)
[2019-01-18] MEDS: oxyCODONE/ACETAMINOPHEN 5-325 MG TABLET PO PRN ×2 (06:40→11:48)
[2019-01-18] MEDS: CLORAZEPATE 3.75 MG TABLET PO PRN ×3 (10:07→23:25)
[2019-01-18] MEDS: POTASSIUM CHLORIDE 20 MEQ TABLET PO PRN ×2 (10:07→12:07)
[2019-01-18] MEDS: FERROUS SULFATE 325 MG TABLET PO SCH (10:07)
[2019-01-18] MEDS: ASPIRIN EC 325 MG TABLET PO SCH (10:07)
[2019-01-18] MEDS: DOCUSATE SODIUM 100 MG CAPSULE PO SCH (10:08)
[2019-01-18] MEDS: APIXABAN 5 MG TABLET PO SCH ×2 (10:08→20:55)
[2019-01-18] MEDS: PANTOPRAZOLE 40 MG TABLET PO SCH (10:08)
[2019-01-18] MEDS: CHLORHEXIDINE 0.12% ORAL RINSE 60 ML BOTTLE SWISH/SPIT SCH ×2 (10:08→20:54)
[2019-01-18] MEDS ORDERED: SOTALOL 80 MG TABLET PO ONE (10:53)
[2019-01-18] MEDS: SOTALOL 80 MG TABLET PO SCH (20:54)
[2019-01-18] MEDS: ATORVASTATIN 10 MG TABLET PO SCH (20:54)
[2019-01-19] MEDS: ZALEPLON 5 MG CAPSULE PO PRN (01:14)
[2019-01-19 06:10] LABS: Basophils % 0.2 % (0.0-0.8); Eosinophils # 0.1 10*3/uL (0.0-0.87); Eosinophils % 0.5 % (0.00-10.9); Hematocrit 30.1 VOL% (42.0-52.0); Hemoglobin 9.5 GM/DL (14.0-18.0); Immature Granulocytes % 1.4 %; Immature Granulocytes Absolute 0.18 #; Lymphocytes # 1.9 10*3/uL (1.4-4.0); Lymphocytes % 15.1 % (21.2-54.2); Mean Corpuscular HGB Conc 31.6 GM/DL (32-36); Mean Corpuscular Volume 90.4 FL (87-102); Mean Platelet Volume 10.9 FL (9.6-12.0); Monocytes % 14.2 % (1.7-12.7); Neutrophils % 68.6 % (38.7-73.9); Platelet Count 197 T/CUMM (130-400); Red Blood Count 3.33 MC/CUMM (3.8-5.5); Red Cell Distribution Width 15.9 % (9.3-17.3); White Blood Count 12.5 T/CUMM (4-12)
[2019-01-19 06:30] LABS: Alanine Aminotransferase 19 U/L (16-61); Albumin 2.9 G/DL (3.4-5.0); Alkaline Phosphatase 44 U/L (45-117); Aspartate Amino Transferase 16 U/L (0-37); Bilirubin,Indirect 0.5 MG/DL (0.0-1.0); Blood Urea Nitrogen 10 MG/DL (7-18); Calcium 7.9 MG/DL (8.5-10.1); Glucose 107 MG/DL (74-106); Osmolality,Calculated 273.7 MOS/KG (273-304); Total Protein 5.8 G/DL (6.4-8.3)
[2019-01-19] MEDS: SOTALOL 80 MG TABLET PO SCH ×2 (08:54→20:30)
[2019-01-19] MEDS: PANTOPRAZOLE 40 MG TABLET PO SCH (08:55)
[2019-01-19] MEDS: DOCUSATE SODIUM 100 MG CAPSULE PO SCH (08:55)
[2019-01-19] MEDS: APIXABAN 5 MG TABLET PO SCH ×2 (08:55→20:28)
[2019-01-19] MEDS: ASPIRIN EC 325 MG TABLET PO SCH (08:55)
[2019-01-19] MEDS: POTASSIUM CHLORIDE 20 MEQ TABLET PO PRN ×2 (08:55→11:22)
[2019-01-19] MEDS: FERROUS SULFATE 325 MG TABLET PO SCH (08:55)
[2019-01-19] MEDS: CHLORHEXIDINE 0.12% ORAL RINSE 60 ML BOTTLE SWISH/SPIT SCH ×2 (08:56→20:28)
[2019-01-19] MEDS: ATORVASTATIN 10 MG TABLET PO SCH (20:28)
[2019-01-19] MEDS: NON-FORMULARY MEDICATION PO SCH (20:29)
[2019-01-20] MEDS: DOCUSATE SODIUM 100 MG CAPSULE PO SCH (09:31)
[2019-01-20] MEDS: PANTOPRAZOLE 40 MG TABLET PO SCH (09:31)
[2019-01-20] MEDS: ASPIRIN EC 325 MG TABLET PO SCH (09:31)
[2019-01-20] MEDS: SOTALOL 80 MG TABLET PO SCH ×2 (09:31→20:44)
[2019-01-20] MEDS: CHLORHEXIDINE 0.12% ORAL RINSE 60 ML BOTTLE SWISH/SPIT SCH ×2 (09:32→21:01)
[2019-01-20] MEDS: APIXABAN 5 MG TABLET PO SCH ×2 (09:32→21:00)
[2019-01-20] MEDS: NON-FORMULARY MEDICATION PO SCH (09:33)
[2019-01-20] MEDS: FERROUS SULFATE 325 MG TABLET PO SCH (09:34)
[2019-01-20] MEDS ORDERED: SOTALOL 80 MG TABLET PO ONE (14:59)
[2019-01-20] MEDS: oxyCODONE/ACETAMINOPHEN 5-325 MG TABLET PO PRN (19:30)
[2019-01-20] MEDS: ATORVASTATIN 10 MG TABLET PO SCH (21:01)
[2019-01-21 03:24] LABS: Basophils % 0.5 % (0.0-0.8); Eosinophils # 0.3 10*3/uL (0.0-0.87); Eosinophils % 3.8 % (0.00-10.9); Hematocrit 29.6 VOL% (42.0-52.0); Hemoglobin 9.3 GM/DL (14.0-18.0); Immature Granulocytes % 0.6 %; Immature Granulocytes Absolute 0.05 #; Lymphocytes # 1.6 10*3/uL (1.4-4.0); Mean Corpuscular HGB Conc 31.4 GM/DL (32-36); Mean Corpuscular Volume 89.7 FL (87-102); Mean Platelet Volume 10.2 FL (9.6-12.0); Monocytes % 14.7 % (1.7-12.7); Neutrophils % 60.4 % (38.7-73.9); Platelet Count 226 T/CUMM (130-400); Red Cell Distribution Width 15.4 % (9.3-17.3); White Blood Count 8.2 T/CUMM (4-12)
[2019-01-21 03:54] LABS: Alanine Aminotransferase 40 U/L (16-61); Albumin 2.6 G/DL (3.4-5.0); Alkaline Phosphatase 50 U/L (45-117); Aspartate Amino Transferase 28 U/L (0-37); Bilirubin,Indirect 0.4 MG/DL (0.0-1.0); Blood Urea Nitrogen 12 MG/DL (7-18); Calcium 8.2 MG/DL (8.5-10.1); Glucose 103 MG/DL (74-106); Osmolality,Calculated 278.4 MOS/KG (273-304); Total Protein 5.7 G/DL (6.4-8.3)
[2019-01-21 03:56] LABS: Troponin I 0.339 NG/ML (0.00-0.045)
[2019-01-21] MEDS ORDERED: POTASSIUM CHLORIDE 20 MEQ TABLET PO ONE (07:19)
[2019-01-21] MEDS: APIXABAN 5 MG TABLET PO SCH ×2 (08:03→21:48)
[2019-01-21] MEDS: PANTOPRAZOLE 40 MG TABLET PO SCH (08:03)
[2019-01-21] MEDS: SOTALOL 80 MG TABLET PO SCH ×2 (08:03→21:48)
[2019-01-21] MEDS: FERROUS SULFATE 325 MG TABLET PO SCH (08:03)
[2019-01-21] MEDS: ASPIRIN EC 325 MG TABLET PO SCH (08:03)
[2019-01-21] MEDS: POTASSIUM CHLORIDE 20 MEQ TABLET PO PRN (08:04)
[2019-01-21] MEDS: CHLORHEXIDINE 0.12% ORAL RINSE 60 ML BOTTLE SWISH/SPIT SCH ×2 (08:05→21:49)
[2019-01-21] MEDS: NON-FORMULARY MEDICATION PO SCH (08:05)
[2019-01-21] MEDS: DOCUSATE SODIUM 100 MG CAPSULE PO SCH (08:05)
[2019-01-21] MEDS: ATORVASTATIN 10 MG TABLET PO SCH (21:48)
[2019-01-22 05:47] LABS: Basophils % 0.5 % (0.0-0.8); Eosinophils # 0.3 10*3/uL (0.0-0.87); Eosinophils % 4.5 % (0.00-10.9); Hematocrit 27.9 VOL% (42.0-52.0); Immature Granulocytes % 0.7 %; Immature Granulocytes Absolute 0.04 #; Lymphocytes # 1.2 10*3/uL (1.4-4.0); Lymphocytes % 20.9 % (21.2-54.2); Mean Corpuscular HGB Conc 32.3 GM/DL (32-36); Mean Corpuscular Volume 87.7 FL (87-102); Mean Platelet Volume 10.7 FL (9.6-12.0); Monocytes % 14.1 % (1.7-12.7); Neutrophils % 59.3 % (38.7-73.9); Platelet Count 237 T/CUMM (130-400); Red Blood Count 3.18 MC/CUMM (3.8-5.5); Red Cell Distribution Width 15.5 % (9.3-17.3); White Blood Count 5.8 T/CUMM (4-12)
[2019-01-22 06:10] LABS: Alanine Aminotransferase 37 U/L (16-61); Albumin 2.3 G/DL (3.4-5.0); Alkaline Phosphatase 49 U/L (45-117); Aspartate Amino Transferase 22 U/L (0-37); Bilirubin,Indirect 0.7 MG/DL (0.0-1.0); Blood Urea Nitrogen 10 MG/DL (7-18); Calcium 8.2 MG/DL (8.5-10.1); Glucose 91 MG/DL (74-106); Osmolality,Calculated 277.4 MOS/KG (273-304); Total Protein 5.3 G/DL (6.4-8.3)
[2019-01-22 06:11] LABS: Troponin I 0.282 NG/ML (0.00-0.045)
[2019-01-22] MEDS: NON-FORMULARY MEDICATION PO SCH (08:50)
[2019-01-22] MEDS: FERROUS SULFATE 325 MG TABLET PO SCH (08:51)
[2019-01-22] MEDS: APIXABAN 5 MG TABLET PO SCH (08:51)
[2019-01-22] MEDS: SOTALOL 80 MG TABLET PO SCH (08:51)
[2019-01-22] MEDS: DOCUSATE SODIUM 100 MG CAPSULE PO SCH (08:52)
[2019-01-22] MEDS: ASPIRIN EC 325 MG TABLET PO SCH (08:52)
[2019-01-22] MEDS: PANTOPRAZOLE 40 MG TABLET PO SCH (08:52)
[2019-01-22] MEDS: POTASSIUM CHLORIDE 20 MEQ TABLET PO PRN ×2 (08:53→10:54)
[2019-01-22] MEDS ORDERED: POTASSIUM CHLORIDE 20 MEQ TABLET PO SCH (09:00)
[2019-01-22] MEDS: CHLORHEXIDINE 0.12% ORAL RINSE 60 ML BOTTLE SWISH/SPIT SCH (12:36)
[2019-01-22 17:12] VITALS: BP 107/71
== END 2019-01-22 16:35 | disposition home health service (06) | DRG 236 ==
LOC: N.4E 09:06 → N.CVR 01-16 09:32 → N.TELES 01-17 12:17

== ENCOUNTER 2019-04-16 21:34 | Inpatient (IN) ==
[2019-04-16] MEDS ORDERED: ACETAMINOPHEN 500 MG TABLET PO STA (23:28)
[2019-04-16] MEDS ORDERED: CIPROFLOXACIN INJ 400 MG in PREMIX 1 EACH IV STA (23:28)
[2019-04-16] MEDS ORDERED: ONDANSETRON 4 MG/2 ML VIAL IV STA (23:29)
[2019-04-17] MEDS ORDERED: ONDANSETRON 4 MG/2 ML VIAL IV PRN (00:42)
[2019-04-17] MEDS ORDERED: FUROSEMIDE 40 MG TABLET PO PRN (00:42)
[2019-04-17] MEDS ORDERED: POTASSIUM CHLORIDE 10 MEQ TABLET PO PRN (00:42)
[2019-04-17] MEDS ORDERED: ACETAMINOPHEN 325 MG TABLET PO PRN (00:42)
[2019-04-17] MEDS ORDERED: cefTAZidime 1,000 MG in SYRINGE 1 EACH IV SCH (01:00)
[2019-04-17 06:07] LABS: Basophils # 0.1 10*3/uL (0.0-0.2); Basophils % 1.4 % (0.0-0.8); Eosinophils % 0.2 % (0.00-10.9); Hematocrit 36.2 VOL% (42.0-52.0); Hemoglobin 11.2 GM/DL (14.0-18.0); Immature Granulocytes % 0.5 %; Immature Granulocytes Absolute 0.03 #; Lymphocytes # 1.1 10*3/uL (1.4-4.0); Lymphocytes % 17.6 % (21.2-54.2); Mean Corpuscular HGB Conc 30.9 GM/DL (32-36); Mean Corpuscular Volume 83.4 FL (87-102); Mean Platelet Volume 10.5 FL (9.6-12.0); Monocytes % 9.2 % (1.7-12.7); Neutrophils % 71.1 % (38.7-73.9); Platelet Count 297 T/CUMM (130-400); Red Blood Count 4.34 MC/CUMM (3.8-5.5); Red Cell Distribution Width 17.7 % (9.3-17.3); White Blood Count 6.4 T/CUMM (4-12)
[2019-04-17 06:12] LABS: Albumin 3.2 G/DL (3.4-5.0); Bilirubin,Total 0.9 MG/DL (0.2-1.0); Calcium 8.7 MG/DL (8.5-10.1); Osmolality,Calculated 278.4 MOS/KG (273-304); Total Protein 6.8 G/DL (6.4-8.3)
[2019-04-17 06:31] LABS: Apearance,Urine CLEAR (Clear); Bacteria,Urine Occasional /HPF (Few); Bilirubin,Urine Negative (Negative); Blood, Urine Large mg/dL (Negative); Glucose,Urine (UA) Negative (Negative); Ketones,Urine 80 mg/dL (Negative); Mucus,Urine Occasional /LPF (Occasional); Nitrite,Urine Negative (Negative); Protein,Urine 30 MG/DL; RBC,Urine 10 /HPF (0-4); Squamous Epithelial Cell,Urine Occasional /HPF (0-10); Urine Color Yellow (Yellow); Urine Specific Gravity 1.016 (1.001-1.035); Urine Urobilinogen < 2.0 EU/DL (0.2-1.0); WBC,Urine 48 /HPF (0-6)
[2019-04-17] MEDS: LEVOFLOXACIN INJ 750 MG in PREMIX 1 EACH IV SCH (08:27)
[2019-04-17] MEDS: FUROSEMIDE 40 MG/4 ML VIAL IV SCH ×2 (08:29→15:42)
[2019-04-17] MEDS ORDERED: (Lenalidomide [Revlimid] 5 MG) PO SCH (09:00)
[2019-04-17] MEDS: APIXABAN 5 MG TABLET PO SCH ×2 (09:53→23:19)
[2019-04-17] MEDS: PANTOPRAZOLE 40 MG TABLET PO SCH (09:53)
[2019-04-17] MEDS: SOTALOL 80 MG TABLET PO SCH ×2 (09:53→23:19)
[2019-04-17] MEDS: DOCUSATE SODIUM 100 MG CAPSULE PO SCH ×2 (09:53→23:19)
[2019-04-17] MEDS: ERGOCALCIFEROL 50,000 UNIT CAPSULE PO SCH (09:53)
[2019-04-17] MEDS: ASPIRIN EC 81 MG TABLET PO SCH (09:53)
[2019-04-17] MEDS ORDERED: CIPROFLOXACIN INJ 400 MG in PREMIX 1 EACH IV SCH (12:00)
[2019-04-17] MEDS: SODIUM CHLORIDE 0.9% 1,000 ML IV SCH ×2 (14:43)
[2019-04-18 05:10] LABS: Basophils # 0.1 10*3/uL (0.0-0.2); Eosinophils % 0.1 % (0.00-10.9); Hematocrit 42.6 VOL% (42.0-52.0); Hemoglobin 13.2 GM/DL (14.0-18.0); Immature Granulocytes % 0.3 %; Immature Granulocytes Absolute 0.03 #; Lymphocytes # 1.5 10*3/uL (1.4-4.0); Lymphocytes % 16.6 % (21.2-54.2); Mean Corpuscular Volume 82.2 FL (87-102); Mean Platelet Volume 10.5 FL (9.6-12.0); Monocytes % 12.6 % (1.7-12.7); Neutrophils % 69.4 % (38.7-73.9); Platelet Count 330 T/CUMM (130-400); Red Blood Count 5.18 MC/CUMM (3.8-5.5); Red Cell Distribution Width 17.5 % (9.3-17.3); White Blood Count 8.9 T/CUMM (4-12)
[2019-04-18 05:51] LABS: Albumin 3.3 G/DL (3.4-5.0); Calcium 9.1 MG/DL (8.5-10.1); Osmolality,Calculated 279.4 MOS/KG (273-304); Risk Ratio 2.79; Total Protein 7.7 G/DL (6.4-8.3); VLDL CHOLESTEROL 16.4 MG/DL
[2019-04-18] MEDS ORDERED: DILTIAZEM CD 180 MG CAPSULE PO SCH (09:00)
[2019-04-18] MEDS: LEVOFLOXACIN INJ 750 MG in PREMIX 1 EACH IV SCH (09:14)
[2019-04-18] MEDS: FUROSEMIDE 40 MG/4 ML VIAL IV SCH (09:18)
[2019-04-18] MEDS ORDERED: SOTALOL 80 MG TABLET PO ONE (09:41)
[2019-04-18] MEDS ORDERED: POTASSIUM CHLORIDE 20 MEQ TABLET PO SCH (10:00)
[2019-04-18] MEDS ORDERED: AMIODARONE INJ 150 MG in DEXTROSE 5% 100 ML IV ONE (10:15)
[2019-04-18] MEDS ORDERED: AMIODARONE INJ 450 MG in DEXTROSE 5% 241 ML IV SCH (10:45)
[2019-04-18] MEDS: ASPIRIN EC 81 MG TABLET PO SCH (10:50)
[2019-04-18] MEDS: PANTOPRAZOLE 40 MG TABLET PO SCH (10:51)
[2019-04-18] MEDS: DOCUSATE SODIUM 100 MG CAPSULE PO SCH ×2 (10:51→21:25)
[2019-04-18] MEDS: ENOXAPARIN 100 MG/ML SYRINGE SUBCUT SCH ×2 (11:18→22:53)
[2019-04-18] MEDS: POTASSIUM CHLORIDE RIDER 10 MEQ in PREMIX 1 EACH IV SCH ×3 (11:22→14:35)
[2019-04-18 13:05] LABS: INR 1.1
[2019-04-18] MEDS: SOTALOL 80 MG TABLET PO SCH (14:41)
[2019-04-18] MEDS: APIXABAN 5 MG TABLET PO SCH (14:41)
[2019-04-18] MEDS: AMIODARONE INJ 450 MG in DEXTROSE 5% 241 ML IV SCH (18:51)
[2019-04-18] MEDS ORDERED: SOTALOL 80 MG TABLET PO SCH (21:00)
[2019-04-19 05:18] LABS: Basophils # 0.1 10*3/uL (0.0-0.2); Basophils % 0.7 % (0.0-0.8); Eosinophils % 0.1 % (0.00-10.9); Hematocrit 42.7 VOL% (42.0-52.0); Hemoglobin 13.6 GM/DL (14.0-18.0); Immature Granulocytes % 0.3 %; Immature Granulocytes Absolute 0.03 #; Lymphocytes # 1.9 10*3/uL (1.4-4.0); Lymphocytes % 18.3 % (21.2-54.2); Mean Corpuscular HGB Conc 31.9 GM/DL (32-36); Mean Corpuscular Volume 81.8 FL (87-102); Mean Platelet Volume 10.7 FL (9.6-12.0); Monocytes % 11.9 % (1.7-12.7); Neutrophils % 68.7 % (38.7-73.9); Platelet Count 328 T/CUMM (130-400); Red Blood Count 5.22 MC/CUMM (3.8-5.5); Red Cell Distribution Width 17.7 % (9.3-17.3); White Blood Count 10.6 T/CUMM (4-12)
[2019-04-19 05:42] LABS: Calcium 9.3 MG/DL (8.5-10.1); Osmolality,Calculated 284.3 MOS/KG (273-304)
[2019-04-19 05:44] LABS: Albumin 3.1 G/DL (3.4-5.0); Osmolality,Calculated 279.5 MOS/KG (273-304)
[2019-04-19] MEDS: FUROSEMIDE 40 MG/4 ML VIAL IV SCH (08:52)
[2019-04-19] MEDS: ASPIRIN EC 81 MG TABLET PO SCH (08:53)
[2019-04-19] MEDS: DOCUSATE SODIUM 100 MG CAPSULE PO SCH ×2 (08:53→20:52)
[2019-04-19] MEDS: POTASSIUM CHLORIDE 20 MEQ TABLET PO PRN (08:53)
[2019-04-19] MEDS: PANTOPRAZOLE 40 MG TABLET PO SCH (08:53)
[2019-04-19] MEDS: LEVOFLOXACIN INJ 750 MG in PREMIX 1 EACH IV SCH (08:57)
[2019-04-19] MEDS: AMIODARONE INJ 450 MG in DEXTROSE 5% 241 ML IV SCH ×2 (09:03→23:32)
[2019-04-19] MEDS: DILTIAZEM CD 180 MG CAPSULE PO SCH ×2 (13:13→20:52)
[2019-04-19] MEDS: APIXABAN 5 MG TABLET PO SCH ×2 (13:13→20:54)
[2019-04-19] MEDS: ENOXAPARIN 100 MG/ML SYRINGE SUBCUT SCH ×2 (13:13→23:32)
[2019-04-19] MEDS: AMIODARONE 200 MG TABLET PO SCH ×2 (13:13→20:52)
[2019-04-20 05:32] LABS: Basophils # 0.1 10*3/uL (0.0-0.2); Basophils % 0.8 % (0.0-0.8); Eosinophils % 0.4 % (0.00-10.9); Hematocrit 41.3 VOL% (42.0-52.0); Hemoglobin 12.9 GM/DL (14.0-18.0); Immature Granulocytes % 0.4 %; Immature Granulocytes Absolute 0.04 #; Lymphocytes # 2.4 10*3/uL (1.4-4.0); Mean Corpuscular HGB Conc 31.2 GM/DL (32-36); Mean Corpuscular Volume 81.3 FL (87-102); Mean Platelet Volume 10.5 FL (9.6-12.0); Monocytes % 10.4 % (1.7-12.7); Platelet Count 355 T/CUMM (130-400); Red Blood Count 5.08 MC/CUMM (3.8-5.5); Red Cell Distribution Width 17.8 % (9.3-17.3); White Blood Count 9.9 T/CUMM (4-12)
[2019-04-20 06:00] LABS: Osmolality,Calculated 283.3 MOS/KG (273-304)
[2019-04-20] MEDS: POTASSIUM CHLORIDE 20 MEQ TABLET PO PRN ×2 (06:11→08:54)
[2019-04-20] MEDS: DOCUSATE SODIUM 100 MG CAPSULE PO SCH ×2 (08:53→20:36)
[2019-04-20] MEDS: DILTIAZEM CD 180 MG CAPSULE PO SCH (08:53)
[2019-04-20] MEDS: FUROSEMIDE 40 MG/4 ML VIAL IV SCH (08:54)
[2019-04-20] MEDS: PANTOPRAZOLE 40 MG TABLET PO SCH (08:54)
[2019-04-20] MEDS: AMIODARONE 200 MG TABLET PO SCH ×2 (08:54→20:36)
[2019-04-20] MEDS: APIXABAN 5 MG TABLET PO SCH ×2 (08:54→20:36)
[2019-04-20] MEDS: LEVOFLOXACIN INJ 750 MG in PREMIX 1 EACH IV SCH (08:55)
[2019-04-20] MEDS: ASPIRIN EC 81 MG TABLET PO SCH (08:55)
[2019-04-20] MEDS: METOPROLOL TARTRATE 25 MG TABLET PO SCH ×2 (11:12→20:36)
[2019-04-20] MEDS: POTASSIUM CHLORIDE 20 MEQ TABLET PO SCH ×2 (11:12→20:36)
[2019-04-20] MEDS: AMIODARONE INJ 450 MG in DEXTROSE 5% 241 ML IV SCH (13:31)
[2019-04-20] MEDS: DILTIAZEM CD 240 MG CAPSULE PO SCH (20:35)
[2019-04-21] MEDS: AMIODARONE INJ 450 MG in DEXTROSE 5% 241 ML IV SCH (04:05)
[2019-04-21 05:34] LABS: Basophils # 0.1 10*3/uL (0.0-0.2); Eosinophils # 0.1 10*3/uL (0.0-0.87); Eosinophils % 0.7 % (0.00-10.9); Hemoglobin 13.2 GM/DL (14.0-18.0); Immature Granulocytes % 0.4 %; Immature Granulocytes Absolute 0.04 #; Lymphocytes % 19.7 % (21.2-54.2); Mean Corpuscular HGB Conc 30.7 GM/DL (32-36); Mean Corpuscular Volume 82.2 FL (87-102); Mean Platelet Volume 10.8 FL (9.6-12.0); Monocytes % 10.4 % (1.7-12.7); Neutrophils % 67.8 % (38.7-73.9); Platelet Count 330 T/CUMM (130-400); Red Blood Count 5.23 MC/CUMM (3.8-5.5); White Blood Count 10.1 T/CUMM (4-12)
[2019-04-21 06:10] LABS: Calcium 9.2 MG/DL (8.5-10.1); Osmolality,Calculated 282.3 MOS/KG (273-304)
[2019-04-21] MEDS: LEVOFLOXACIN INJ 750 MG in PREMIX 1 EACH IV SCH (09:01)
[2019-04-21] MEDS: DILTIAZEM CD 240 MG CAPSULE PO SCH ×2 (09:03→20:35)
[2019-04-21] MEDS: ASPIRIN EC 81 MG TABLET PO SCH (09:03)
[2019-04-21] MEDS: APIXABAN 5 MG TABLET PO SCH ×2 (09:04→20:36)
[2019-04-21] MEDS: POTASSIUM CHLORIDE 20 MEQ TABLET PO SCH ×2 (09:04→23:19)
[2019-04-21] MEDS: PANTOPRAZOLE 40 MG TABLET PO SCH (09:04)
[2019-04-21] MEDS: METOPROLOL TARTRATE 25 MG TABLET PO SCH ×2 (09:04→20:35)
[2019-04-21] MEDS: FUROSEMIDE 40 MG TABLET PO SCH (09:04)
[2019-04-21] MEDS: AMIODARONE 200 MG TABLET PO SCH ×2 (09:04→20:35)
[2019-04-21] MEDS: DOCUSATE SODIUM 100 MG CAPSULE PO SCH ×2 (09:04→20:35)
[2019-04-21] MEDS: POTASSIUM CHLORIDE 20 MEQ TABLET PO PRN ×2 (09:12→20:35)
[2019-04-22 04:47] LABS: Basophils # 0.1 10*3/uL (0.0-0.2); Basophils % 1.1 % (0.0-0.8); Eosinophils # 0.1 10*3/uL (0.0-0.87); Eosinophils % 1.3 % (0.00-10.9); Hematocrit 43.5 VOL% (42.0-52.0); Hemoglobin 13.3 GM/DL (14.0-18.0); Immature Granulocytes % 0.4 %; Immature Granulocytes Absolute 0.04 #; Lymphocytes # 2.1 10*3/uL (1.4-4.0); Mean Corpuscular HGB Conc 30.6 GM/DL (32-36); Mean Corpuscular Volume 83.8 FL (87-102); Mean Platelet Volume 10.7 FL (9.6-12.0); Monocytes % 10.1 % (1.7-12.7); Neutrophils % 67.1 % (38.7-73.9); Platelet Count 345 T/CUMM (130-400); Red Blood Count 5.19 MC/CUMM (3.8-5.5); Red Cell Distribution Width 18.3 % (9.3-17.3); White Blood Count 10.3 T/CUMM (4-12)
[2019-04-22 05:16] LABS: Albumin 2.9 G/DL (3.4-5.0); Bilirubin,Total 0.8 MG/DL (0.2-1.0); Calcium 9.1 MG/DL (8.5-10.1); Osmolality,Calculated 282.3 MOS/KG (273-304); Total Protein 6.6 G/DL (6.4-8.3)
[2019-04-22] MEDS: ASPIRIN EC 81 MG TABLET PO SCH (09:04)
[2019-04-22] MEDS: METOPROLOL SUCCINATE XL 25 MG TABLET PO SCH (09:04)
[2019-04-22] MEDS: DILTIAZEM CD 240 MG CAPSULE PO SCH ×2 (09:04→21:16)
[2019-04-22] MEDS: PANTOPRAZOLE 40 MG TABLET PO SCH (09:05)
[2019-04-22] MEDS: APIXABAN 5 MG TABLET PO SCH ×2 (09:05→21:16)
[2019-04-22] MEDS: FUROSEMIDE 40 MG TABLET PO SCH (09:05)
[2019-04-22] MEDS: POTASSIUM CHLORIDE 20 MEQ TABLET PO SCH ×2 (09:05→21:17)
[2019-04-22] MEDS: DOCUSATE SODIUM 100 MG CAPSULE PO SCH ×2 (09:05→21:16)
[2019-04-22] MEDS: POTASSIUM CHLORIDE 20 MEQ TABLET PO PRN (09:05)
[2019-04-22] MEDS: AMIODARONE 200 MG TABLET PO SCH ×2 (09:05→21:16)
[2019-04-22] MEDS: LEVOFLOXACIN INJ 500 MG in PREMIX 1 EACH IV SCH (09:20)
[2019-04-22] MEDS: LEVOFLOXACIN INJ 750 MG in PREMIX 1 EACH IV SCH (09:29)
[2019-04-22] MEDS ORDERED: MAGNESIUM SULF RIDER 2 GM in PREMIX 1 EACH IV PRN (11:35)
[2019-04-22] MEDS ORDERED: MAGNESIUM SULF RIDER 4 GM in PREMIX 1 EACH IV PRN (11:35)
[2019-04-22] MEDS ORDERED: MAGNESIUM SULF RIDER 2 GM in PREMIX 1 EACH IV ONE (11:36)
[2019-04-22] MEDS: ROSUVASTATIN 20 MG TABLET PO SCH (21:16)
[2019-04-23 04:52] LABS: Basophils # 0.1 10*3/uL (0.0-0.2); Eosinophils # 0.2 10*3/uL (0.0-0.87); Eosinophils % 2.3 % (0.00-10.9); Hematocrit 43.2 VOL% (42.0-52.0); Hemoglobin 13.2 GM/DL (14.0-18.0); Immature Granulocytes % 0.6 %; Immature Granulocytes Absolute 0.06 #; Lymphocytes # 2.5 10*3/uL (1.4-4.0); Lymphocytes % 24.2 % (21.2-54.2); Mean Corpuscular HGB Conc 30.6 GM/DL (32-36); Mean Corpuscular Volume 82.3 FL (87-102); Mean Platelet Volume 10.5 FL (9.6-12.0); Neutrophils % 57.9 % (38.7-73.9); Platelet Count 353 T/CUMM (130-400); Red Blood Count 5.25 MC/CUMM (3.8-5.5); Red Cell Distribution Width 17.8 % (9.3-17.3); White Blood Count 10.5 T/CUMM (4-12)
[2019-04-23 05:17] LABS: Calcium 8.9 MG/DL (8.5-10.1); Osmolality,Calculated 278.5 MOS/KG (273-304)
[2019-04-23] MEDS: SODIUM CHLORIDE 0.9% 1,000 ML IV SCH (06:27)
[2019-04-23] MEDS ORDERED: PHENYLEPHRINE 1 MG/10 ML SYRINGE IV ONE (07:15)
[2019-04-23] MEDS ORDERED: LIDOCAINE 2% 5 ML VIAL ONE (07:15)
[2019-04-23] MEDS ORDERED: PROPOFOL 200 MG/20 ML VIAL IV ONE (07:15)
[2019-04-23] MEDS: DILTIAZEM CD 240 MG CAPSULE PO SCH ×2 (08:44→22:13)
[2019-04-23] MEDS: APIXABAN 5 MG TABLET PO SCH ×2 (08:45→22:14)
[2019-04-23] MEDS: POTASSIUM CHLORIDE 20 MEQ TABLET PO SCH ×2 (08:45→22:14)
[2019-04-23] MEDS: DOCUSATE SODIUM 100 MG CAPSULE PO SCH ×2 (08:45→22:14)
[2019-04-23] MEDS: AMIODARONE 200 MG TABLET PO SCH ×2 (08:45→22:14)
[2019-04-23] MEDS: METOPROLOL SUCCINATE XL 25 MG TABLET PO SCH (08:47)
[2019-04-23] MEDS: ASPIRIN EC 81 MG TABLET PO SCH (08:47)
[2019-04-23] MEDS: FUROSEMIDE 40 MG TABLET PO SCH (08:47)
[2019-04-23] MEDS: PANTOPRAZOLE 40 MG TABLET PO SCH (08:47)
[2019-04-23] MEDS: LEVOFLOXACIN INJ 500 MG in PREMIX 1 EACH IV SCH (08:48)
[2019-04-23] MEDS: POTASSIUM CHLORIDE 20 MEQ TABLET PO PRN (11:00)
[2019-04-23] MEDS ORDERED: POTASSIUM CHLORIDE 20 MEQ TABLET PO ONE (13:09)
[2019-04-23] MEDS ORDERED: TUBERCULIN SKIN TEST 0.1 ML SYRINGE INTRADERM ONE (14:20)
[2019-04-23] MEDS: ROSUVASTATIN 20 MG TABLET PO SCH (22:13)
[2019-04-24 04:26] LABS: Basophils # 0.1 10*3/uL (0.0-0.2); Basophils % 1.5 % (0.0-0.8); Eosinophils # 0.3 10*3/uL (0.0-0.87); Eosinophils % 3.2 % (0.00-10.9); Hematocrit 38.5 VOL% (42.0-52.0); Hemoglobin 11.8 GM/DL (14.0-18.0); Immature Granulocytes % 0.9 %; Immature Granulocytes Absolute 0.07 #; Lymphocytes # 1.4 10*3/uL (1.4-4.0); Lymphocytes % 18.1 % (21.2-54.2); Mean Corpuscular HGB Conc 30.6 GM/DL (32-36); Mean Corpuscular Volume 82.8 FL (87-102); Mean Platelet Volume 10.2 FL (9.6-12.0); Monocytes % 14.6 % (1.7-12.7); Neutrophils % 61.7 % (38.7-73.9); Platelet Count 297 T/CUMM (130-400); Red Blood Count 4.65 MC/CUMM (3.8-5.5); White Blood Count 7.8 T/CUMM (4-12)
[2019-04-24 04:45] LABS: Calcium 8.6 MG/DL (8.5-10.1); Osmolality,Calculated 282.3 MOS/KG (273-304)
[2019-04-24] MEDS: SODIUM CHLORIDE 0.9% 1,000 ML IV SCH (05:07)
[2019-04-24] MEDS: POTASSIUM CHLORIDE 20 MEQ TABLET PO PRN (05:52)
[2019-04-24] MEDS: LEVOFLOXACIN INJ 500 MG in PREMIX 1 EACH IV SCH (08:34)
[2019-04-24] MEDS: DILTIAZEM CD 240 MG CAPSULE PO SCH (08:35)
[2019-04-24] MEDS: ERGOCALCIFEROL 50,000 UNIT CAPSULE PO SCH (08:35)
[2019-04-24] MEDS: APIXABAN 5 MG TABLET PO SCH (08:36)
[2019-04-24] MEDS: PANTOPRAZOLE 40 MG TABLET PO SCH (08:36)
[2019-04-24] MEDS: POTASSIUM CHLORIDE 20 MEQ TABLET PO SCH (08:36)
[2019-04-24] MEDS: METOPROLOL SUCCINATE XL 25 MG TABLET PO SCH (08:36)
[2019-04-24] MEDS: FUROSEMIDE 40 MG TABLET PO SCH (08:36)
[2019-04-24] MEDS: AMIODARONE 200 MG TABLET PO SCH (08:36)
[2019-04-24] MEDS: ASPIRIN EC 81 MG TABLET PO SCH (08:36)
[2019-04-24] MEDS: DOCUSATE SODIUM 100 MG CAPSULE PO SCH (08:36)
[2019-04-24 12:53] VITALS: BP 117/68
[2019-04-24] MEDS ORDERED: LEVOFLOXACIN 500 MG TABLET PO SCH (13:30)
== END 2019-04-24 16:02 | DRG 698 ==
LOC: N.ED 21:34 → N.EDINP 23:37 → N.2E 23:54 → N.TELES 04-17 16:01
PROVIDERS: ADMIT Family Medicine; ATTEND Family Medicine

== ENCOUNTER 2019-10-04 16:46 | Inpatient (IN) ==
[2019-10-04 17:37] LABS: Basophils % 0.3 % (0.0-0.8); Eosinophils % 0.6 % (0.00-10.9); Hematocrit 34.4 VOL% (42.0-52.0); Immature Granulocytes % 0.6 %; Immature Granulocytes Absolute 0.02 #; Lymphocytes # 0.2 10*3/uL (1.4-4.0); Lymphocytes % 4.6 % (21.2-54.2); Mean Platelet Volume 10.5 FL (9.6-12.0); Monocytes % 0.9 % (1.7-12.7); Platelet Count 245 T/CUMM (130-400); White Blood Count 3.5 T/CUMM (4-12)
[2019-10-04] MEDS ORDERED: cefTRIAXone 1,000 MG in SODIUM CHLORIDE 0.9% 100 ML IV STA (17:43)
[2019-10-04] MEDS ORDERED: SODIUM CHLORIDE 0.9% 1,000 ML IV STA (17:43)
[2019-10-04 17:48] LABS: Albumin 2.9 G/DL (3.4-5.0); Bilirubin,Total 0.6 MG/DL (0.2-1.0); Calcium 8.3 MG/DL (8.5-10.1); Osmolality,Calculated 274.7 MOS/KG (273-304); Total Protein 6.4 G/DL (6.4-8.3)
[2019-10-04 18:02] LABS: Apearance,Urine Slightly Hazy (Clear); Bacteria,Urine Occasional /HPF (Few); Bilirubin,Urine Negative (Negative); Blood, Urine Moderate mg/dL (Negative); Glucose,Urine (UA) 50 mg/dL (Negative); Ketones,Urine Negative (Negative); Mucus,Urine Occasional /LPF (Occasional); Nitrite,Urine Positive (Negative); Protein,Urine Negative; RBC,Urine 74 /HPF (0-4); Squamous Epithelial Cell,Urine Occasional /HPF (0-10); Urine Color Yellow (Yellow); Urine Specific Gravity 1.015 (1.001-1.035); Urine Urobilinogen < 2.0 EU/DL (0.2-1.0); WBC,Urine 144 /HPF (0-6)
[2019-10-04] MEDS ORDERED: POTASSIUM CHLORIDE RIDER 20 MEQ in PREMIX 1 EACH IV STA (18:02)
[2019-10-04] MEDS ORDERED: POTASSIUM CHLORIDE RIDER 100 ML IV ONE (18:14)
[2019-10-04] MEDS: POTASSIUM CHLORIDE RIDER 10 MEQ in PREMIX 1 EACH IV SCH ×2 (18:19→19:50)
[2019-10-04 18:25] LABS: Band Neutrophils 5 % (0-10); Eosinophils 1 % (0-10); Lymphocytes 6 % (20-55); Segmented Neutrophils 87 % (50-85); Total Cells Counted 100
[2019-10-04 18:26] LABS: Platelet Estimate Adequate
[2019-10-04] MEDS ORDERED: IBUPROFEN 600 MG TABLET PO PRN (18:44)
[2019-10-04] MEDS ORDERED: ONDANSETRON 4 MG/2 ML VIAL IV PRN (18:44)
[2019-10-04] MEDS: SODIUM CHLORIDE 0.9% 1,000 ML IV SCH (19:01)
[2019-10-04] MEDS: DOCUSATE SODIUM 100 MG CAPSULE PO SCH (21:49)
[2019-10-04] MEDS: ACETAMINOPHEN 325 MG TABLET PO PRN (21:51)
[2019-10-05] MEDS: SODIUM CHLORIDE 0.9% 1,000 ML IV SCH ×3 (03:01→18:17)
[2019-10-05] MEDS: DOCUSATE SODIUM 100 MG CAPSULE PO SCH ×2 (08:38→20:59)
[2019-10-05] MEDS: PANTOPRAZOLE 40 MG TABLET PO SCH (08:38)
[2019-10-05] MEDS: ACETAMINOPHEN 325 MG TABLET PO PRN (10:35)
[2019-10-05] MEDS: cefTRIAXone 1,000 MG in SYRINGE 1 EACH IV SCH (17:21)
[2019-10-05] MEDS: APIXABAN 5 MG TABLET PO SCH (20:57)
[2019-10-05] MEDS: ROSUVASTATIN 20 MG TABLET PO SCH (20:57)
[2019-10-06] MEDS: SODIUM CHLORIDE 0.9% 1,000 ML IV SCH ×3 (02:09→18:20)
[2019-10-06 08:46] LABS: Basophils # 0.1 10*3/uL (0.0-0.2); Eosinophils # 0.1 10*3/uL (0.0-0.87); Eosinophils % 1.4 % (0.00-10.9); Hematocrit 31.7 VOL% (42.0-52.0); Hemoglobin 10.1 GM/DL (14.0-18.0); Immature Granulocytes % 0.3 %; Immature Granulocytes Absolute 0.02 #; Lymphocytes # 1.3 10*3/uL (1.4-4.0); Lymphocytes % 17.8 % (21.2-54.2); Mean Corpuscular HGB Conc 31.9 GM/DL (32-36); Mean Corpuscular Volume 86.4 FL (87-102); Mean Platelet Volume 10.3 FL (9.6-12.0); Monocytes % 7.2 % (1.7-12.7); Neutrophils % 72.3 % (38.7-73.9); Platelet Count 198 T/CUMM (130-400); Red Blood Count 3.67 MC/CUMM (3.8-5.5); Red Cell Distribution Width 19.5 % (9.3-17.3); White Blood Count 7.2 T/CUMM (4-12)
[2019-10-06] MEDS: DILTIAZEM CD 240 MG CAPSULE PO SCH (08:59)
[2019-10-06] MEDS: APIXABAN 5 MG TABLET PO SCH ×2 (08:59→21:14)
[2019-10-06] MEDS: METOPROLOL SUCCINATE XL 25 MG TABLET PO SCH (09:00)
[2019-10-06] MEDS: PANTOPRAZOLE 40 MG TABLET PO SCH (09:00)
[2019-10-06] MEDS: AMIODARONE 200 MG TABLET PO SCH (09:00)
[2019-10-06] MEDS: ASPIRIN EC 81 MG TABLET PO SCH (09:00)
[2019-10-06] MEDS: DOCUSATE SODIUM 100 MG CAPSULE PO SCH ×3 (09:01→23:36)
[2019-10-06 09:06] LABS: Alanine Aminotransferase 14 U/L (16-61); Albumin 2.3 G/DL (3.4-5.0); Alkaline Phosphatase 46 U/L (45-117); Aspartate Amino Transferase 12 U/L (0-37); Bilirubin,Total < 0.39 MG/DL (0.2-1.0); Blood Urea Nitrogen 8 MG/DL (7-18); Calcium 7.8 MG/DL (8.5-10.1); Estimated Glom Filtration Rate 110 ML/MIN; Glucose 111 MG/DL (74-106); Osmolality,Calculated 279.3 MOS/KG (273-304); Total Protein 5.6 G/DL (6.4-8.3)
[2019-10-06] MEDS: cefTRIAXone 1,000 MG in SYRINGE 1 EACH IV SCH (21:15)
[2019-10-06] MEDS: ROSUVASTATIN 20 MG TABLET PO SCH (21:15)
[2019-10-07] MEDS: SODIUM CHLORIDE 0.9% 1,000 ML IV SCH ×2 (02:15→09:59)
[2019-10-07 05:25] LABS: Basophils # 0.1 10*3/uL (0.0-0.2); Basophils % 0.8 % (0.0-0.8); Eosinophils # 0.1 10*3/uL (0.0-0.87); Eosinophils % 1.5 % (0.00-10.9); Hematocrit 33.3 VOL% (42.0-52.0); Hemoglobin 10.3 GM/DL (14.0-18.0); Immature Granulocytes % 0.5 %; Immature Granulocytes Absolute 0.04 #; Lymphocytes # 1.1 10*3/uL (1.4-4.0); Lymphocytes % 13.4 % (21.2-54.2); Mean Corpuscular HGB Conc 30.9 GM/DL (32-36); Mean Corpuscular Volume 87.2 FL (87-102); Mean Platelet Volume 10.6 FL (9.6-12.0); Monocytes % 7.8 % (1.7-12.7); Platelet Count 206 T/CUMM (130-400); Red Blood Count 3.82 MC/CUMM (3.8-5.5); Red Cell Distribution Width 19.5 % (9.3-17.3); White Blood Count 7.8 T/CUMM (4-12)
[2019-10-07 05:52] LABS: Alanine Aminotransferase 14 U/L (16-61); Albumin 2.3 G/DL (3.4-5.0); Alkaline Phosphatase 48 U/L (45-117); Aspartate Amino Transferase 14 U/L (0-37); Bilirubin,Total < 0.39 MG/DL (0.2-1.0); Blood Urea Nitrogen 8 MG/DL (7-18); Calcium 7.9 MG/DL (8.5-10.1); Estimated Glom Filtration Rate 116 ML/MIN; Glucose 86 MG/DL (74-106); Osmolality,Calculated 275.4 MOS/KG (273-304); Total Protein 5.5 G/DL (6.4-8.3)
[2019-10-07 07:27] VITALS: BP 114/69
[2019-10-07] MEDS: PANTOPRAZOLE 40 MG TABLET PO SCH (08:53)
[2019-10-07] MEDS: METOPROLOL SUCCINATE XL 25 MG TABLET PO SCH (08:53)
[2019-10-07] MEDS: APIXABAN 5 MG TABLET PO SCH (08:53)
[2019-10-07] MEDS: AMIODARONE 200 MG TABLET PO SCH (08:53)
[2019-10-07] MEDS: DILTIAZEM CD 240 MG CAPSULE PO SCH (08:53)
[2019-10-07] MEDS: ASPIRIN EC 81 MG TABLET PO SCH (08:53)
[2019-10-07] MEDS: DOCUSATE SODIUM 100 MG CAPSULE PO SCH (08:53)
[2019-10-07] MEDS ORDERED: AMOXICILLIN 875 MG TABLET PO SCH (09:00)
== END 2019-10-07 10:29 | disposition home or self-care (01) | DRG 699 ==
LOC: N.ED 16:46 → N.EDINP 18:43 → N.2E 19:15
PROVIDERS: ADMIT Family Medicine; ATTEND Family Medicine

== ENCOUNTER 2019-10-07 18:42 | Inpatient (IN) ==
[2019-10-07 21:23] LABS: Basophils % 0.3 % (0.0-0.8); Eosinophils % 0.1 % (0.00-10.9); Immature Granulocytes Absolute 0.12 #; Lymphocytes # 0.8 10*3/uL (1.4-4.0); Lymphocytes % 6.2 % (21.2-54.2); Mean Corpuscular HGB Conc 31.6 GM/DL (32-36); Mean Corpuscular Volume 87.2 FL (87-102); Mean Platelet Volume 11.1 FL (9.6-12.0); Monocytes % 6.8 % (1.7-12.7); Neutrophils % 85.6 % (38.7-73.9); Platelet Count 262 T/CUMM (130-400); Red Blood Count 4.36 MC/CUMM (3.8-5.5); Red Cell Distribution Width 19.4 % (9.3-17.3); White Blood Count 12.2 T/CUMM (4-12)
[2019-10-07] MEDS ORDERED: ONDANSETRON 4 MG/2 ML VIAL IV STA (21:25)
[2019-10-07] MEDS ORDERED: FUROSEMIDE 40 MG/4 ML VIAL IV STA (21:25)
[2019-10-07] MEDS ORDERED: ALBUTEROL/IPRATROPIUM 3 ML NEB RESP TX STA (21:25)
[2019-10-07 21:34] LABS: Bilirubin,Total 0.6 MG/DL (0.2-1.0); Calcium 8.3 MG/DL (8.5-10.1)
[2019-10-07 22:18] LABS: Troponin I 0.017 NG/ML (0.00-0.045)
[2019-10-07] MEDS ORDERED: ONDANSETRON 4 MG/2 ML VIAL IV PRN (22:30)
[2019-10-07 23:06] LABS: Apearance,Urine CLEAR (Clear); Bacteria,Urine Occasional /HPF (Few); Bilirubin,Urine Negative (Negative); Blood, Urine Large mg/dL (Negative); Glucose,Urine (UA) Negative (Negative); Ketones,Urine 20 mg/dL (Negative); Mucus,Urine Occasional /LPF (Occasional); Nitrite,Urine Negative (Negative); Protein,Urine Negative; RBC,Urine 5 /HPF (0-4); Squamous Epithelial Cell,Urine Occasional /HPF (0-10); Urine Color Yellow (Yellow); Urine Specific Gravity 1.012 (1.001-1.035); Urine Urobilinogen < 2.0 EU/DL (0.2-1.0); WBC,Urine 14 /HPF (0-6)
[2019-10-08] MEDS: ALBUTEROL/IPRATROPIUM 3 ML NEB RESP TX SCH ×4 (02:11→19:31)
[2019-10-08 06:10] LABS: Blood Urea Nitrogen 6 MG/DL (7-18); Calcium 8.1 MG/DL (8.5-10.1); Estimated Glom Filtration Rate 110 ML/MIN; Glucose 93 MG/DL (74-106); Osmolality,Calculated 274.5 MOS/KG (273-304); Troponin I 0.035 NG/ML (0.00-0.045)
[2019-10-08] MEDS: DILTIAZEM CD 240 MG CAPSULE PO SCH (08:46)
[2019-10-08] MEDS: AMIODARONE 200 MG TABLET PO SCH (08:46)
[2019-10-08] MEDS: POTASSIUM CHLORIDE 20 MEQ TABLET PO SCH ×2 (08:46→21:42)
[2019-10-08] MEDS: AMOXICILLIN 875 MG TABLET PO SCH ×2 (08:46→21:42)
[2019-10-08] MEDS: ASPIRIN EC 81 MG TABLET PO SCH (08:46)
[2019-10-08] MEDS: METOPROLOL SUCCINATE XL 25 MG TABLET PO SCH (08:46)
[2019-10-08] MEDS: PANTOPRAZOLE 40 MG TABLET PO SCH (08:47)
[2019-10-08] MEDS: APIXABAN 5 MG TABLET PO SCH ×2 (08:47→21:42)
[2019-10-08] MEDS: FUROSEMIDE 40 MG/4 ML VIAL IV SCH ×2 (08:47→16:52)
[2019-10-08] MEDS ORDERED: Lenalidomide [Revlimid] 5 MG PO SCH (09:00)
[2019-10-08] MEDS: POTASSIUM CHLORIDE RIDER 10 MEQ in PREMIX 1 EACH IV SCH ×3 (10:15→14:46)
[2019-10-08] MEDS: LINEZOLID INJ 600 MG in PREMIX 1 EACH IV SCH ×2 (10:16→21:41)
[2019-10-08] MEDS ORDERED: MAGNESIUM SULF RIDER 2 GM in PREMIX 1 EACH IV ONE (12:39)
[2019-10-08] MEDS ORDERED: MAGNESIUM SULF RIDER 2 GM in PREMIX 1 EACH IV PRN (12:39)
[2019-10-08] MEDS ORDERED: MAGNESIUM SULF RIDER 4 GM in PREMIX 1 EACH IV PRN (12:39)
[2019-10-08] MEDS: POTASSIUM CHLORIDE 20 MEQ TABLET PO PRN ×3 (14:32→23:49)
[2019-10-08] MEDS: ROSUVASTATIN 20 MG TABLET PO SCH (21:42)
[2019-10-08] MEDS ORDERED: POTASSIUM CHLORIDE RIDER 10 MEQ in PREMIX 1 EACH IV PRN (23:42)
[2019-10-09] MEDS: ALBUTEROL/IPRATROPIUM 3 ML NEB RESP TX SCH ×4 (00:13→20:07)
[2019-10-09] MEDS: POTASSIUM CHLORIDE 20 MEQ TABLET PO PRN ×4 (01:59→14:25)
[2019-10-09 05:26] LABS: Basophils % 0.6 % (0.0-0.8); Eosinophils % 0.4 % (0.00-10.9); Hemoglobin 9.7 GM/DL (14.0-18.0); Immature Granulocytes % 0.4 %; Immature Granulocytes Absolute 0.02 #; Lymphocytes # 0.7 10*3/uL (1.4-4.0); Lymphocytes % 12.2 % (21.2-54.2); Mean Corpuscular HGB Conc 31.3 GM/DL (32-36); Mean Corpuscular Volume 85.6 FL (87-102); Mean Platelet Volume 10.7 FL (9.6-12.0); Monocytes % 16.3 % (1.7-12.7); Neutrophils % 70.1 % (38.7-73.9); Platelet Count 217 T/CUMM (130-400); Red Blood Count 3.62 MC/CUMM (3.8-5.5); Red Cell Distribution Width 18.9 % (9.3-17.3); White Blood Count 5.4 T/CUMM (4-12)
[2019-10-09 05:48] LABS: Eosinophils 1 % (0-10); Hypochromasia 1+; Lymphocytes 7 % (20-55); Ovalocytes Slight; Platelet Estimate Adequate; Segmented Neutrophils 80 % (50-85); Total Cells Counted 100
[2019-10-09 06:24] LABS: Albumin 2.4 G/DL (3.4-5.0); Bilirubin,Total 1.2 MG/DL (0.2-1.0); Calcium 8.2 MG/DL (8.5-10.1); Osmolality,Calculated 274.5 MOS/KG (273-304)
[2019-10-09] MEDS: FUROSEMIDE 40 MG/4 ML VIAL IV SCH (07:53)
[2019-10-09] MEDS: LINEZOLID INJ 600 MG in PREMIX 1 EACH IV SCH ×2 (07:57→20:27)
[2019-10-09] MEDS: ASPIRIN EC 81 MG TABLET PO SCH (08:33)
[2019-10-09] MEDS: AMOXICILLIN 875 MG TABLET PO SCH ×2 (08:33→20:26)
[2019-10-09] MEDS: METOPROLOL SUCCINATE XL 25 MG TABLET PO SCH (08:33)
[2019-10-09] MEDS: AMIODARONE 200 MG TABLET PO SCH (08:33)
[2019-10-09] MEDS: DILTIAZEM CD 240 MG CAPSULE PO SCH (08:33)
[2019-10-09] MEDS: APIXABAN 5 MG TABLET PO SCH ×2 (08:33→20:27)
[2019-10-09] MEDS: POTASSIUM CHLORIDE 20 MEQ TABLET PO SCH ×2 (08:33→20:27)
[2019-10-09] MEDS: PANTOPRAZOLE 40 MG TABLET PO SCH (08:33)
[2019-10-09] MEDS: FUROSEMIDE 20 MG/2 ML VIAL IV SCH (15:35)
[2019-10-09] MEDS: ROSUVASTATIN 20 MG TABLET PO SCH (20:26)
[2019-10-10] MEDS: ALBUTEROL/IPRATROPIUM 3 ML NEB RESP TX SCH ×3 (01:07→12:04)
[2019-10-10 05:47] LABS: Basophils # 0.1 10*3/uL (0.0-0.2); Basophils % 1.6 % (0.0-0.8); Eosinophils # 0.1 10*3/uL (0.0-0.87); Eosinophils % 1.6 % (0.00-10.9); Hematocrit 32.4 VOL% (42.0-52.0); Hemoglobin 10.3 GM/DL (14.0-18.0); Immature Granulocytes % 0.4 %; Immature Granulocytes Absolute 0.02 #; Lymphocytes # 1.1 10*3/uL (1.4-4.0); Lymphocytes % 25.6 % (21.2-54.2); Mean Corpuscular HGB Conc 31.8 GM/DL (32-36); Mean Corpuscular Volume 85.7 FL (87-102); Mean Platelet Volume 10.4 FL (9.6-12.0); Monocytes % 20.9 % (1.7-12.7); Neutrophils % 49.9 % (38.7-73.9); Platelet Count 230 T/CUMM (130-400); Red Blood Count 3.78 MC/CUMM (3.8-5.5); Red Cell Distribution Width 19.1 % (9.3-17.3); White Blood Count 4.5 T/CUMM (4-12)
[2019-10-10 06:07] LABS: Albumin 2.5 G/DL (3.4-5.0); Bilirubin,Total 0.6 MG/DL (0.2-1.0); Calcium 8.2 MG/DL (8.5-10.1); Osmolality,Calculated 272.7 MOS/KG (273-304); Total Protein 6.3 G/DL (6.4-8.3)
[2019-10-10 06:28] LABS: Acanthocytes 2+; Band Neutrophils 1 % (0-10); Eosinophils 2 % (0-10); Lymphocytes 22 % (20-55); Platelet Estimate Normal; Segmented Neutrophils 50 % (50-85); Total Cells Counted 100
[2019-10-10 06:29] LABS: Anisocytosis 2+; Macrocytosis 1+; Microcytosis 1+; Ovalocytes Few
[2019-10-10] MEDS ORDERED: AMIODARONE 200 MG TABLET PO SCH (09:00)
[2019-10-10] MEDS: AMOXICILLIN 875 MG TABLET PO SCH (09:07)
[2019-10-10] MEDS: POTASSIUM CHLORIDE 20 MEQ TABLET PO SCH (09:07)
[2019-10-10] MEDS: METOPROLOL SUCCINATE XL 25 MG TABLET PO SCH (09:07)
[2019-10-10] MEDS: ASPIRIN EC 81 MG TABLET PO SCH (09:07)
[2019-10-10] MEDS: PANTOPRAZOLE 40 MG TABLET PO SCH (09:08)
[2019-10-10] MEDS: APIXABAN 5 MG TABLET PO SCH (09:08)
[2019-10-10] MEDS: DILTIAZEM CD 240 MG CAPSULE PO SCH (09:08)
[2019-10-10] MEDS: FUROSEMIDE 20 MG/2 ML VIAL IV SCH (09:58)
[2019-10-10] MEDS: LINEZOLID INJ 600 MG in PREMIX 1 EACH IV SCH (09:59)
[2019-10-10 12:39] VITALS: BP 118/66
== END 2019-10-10 14:48 | disposition home or self-care (01) | DRG 291 ==
LOC: N.ED 18:42 → N.EDINP 22:28 → N.TELEN 10-08 00:32
PROVIDERS: ADMIT Family Medicine; ATTEND Family Medicine

== ENCOUNTER 2019-11-11 16:48 | Inpatient (IN) ==
[2019-11-11] MEDS ORDERED: ONDANSETRON 4 MG/2 ML VIAL IV PRN (17:04)
[2019-11-11] MEDS ORDERED: ACETAMINOPHEN 325 MG TABLET PO PRN (17:04)
[2019-11-11] MEDS ORDERED: MAGNESIUM HYDROXIDE SUSP 30 ML UDCUP PO PRN (17:04)
[2019-11-11] MEDS: SODIUM CHLORIDE 0.45% 1,000 ML IV SCH (18:55)
[2019-11-11 19:51] LABS: Basophils % 0.2 % (0.0-0.8); Eosinophils % 0.1 % (0.00-10.9); Hematocrit 36.2 VOL% (42.0-52.0); Immature Granulocytes % 0.7 %; Immature Granulocytes Absolute 0.06 #; Lymphocytes # 0.5 10*3/uL (1.4-4.0); Lymphocytes % 5.6 % (21.2-54.2); Mean Corpuscular HGB Conc 30.4 GM/DL (32-36); Mean Corpuscular Volume 89.2 FL (87-102); Mean Platelet Volume 9.8 FL (9.6-12.0); Monocytes % 5.1 % (1.7-12.7); Neutrophils % 88.3 % (38.7-73.9); Platelet Count 277 T/CUMM (130-400); Red Blood Count 4.06 MC/CUMM (3.8-5.5); Red Cell Distribution Width 18.1 % (9.3-17.3); White Blood Count 8.2 T/CUMM (4-12)
[2019-11-11 20:17] LABS: Bilirubin,Total 0.6 MG/DL (0.2-1.0); Calcium 8.4 MG/DL (8.5-10.1); Osmolality,Calculated 270.1 MOS/KG (273-304); Total Protein 6.9 G/DL (6.4-8.3)
[2019-11-11 20:20] LABS: Band Neutrophils 5 % (0-10); Burr Cells Few; Elliptocytes Few; Lymphocytes 6 % (20-55); Platelet Estimate Normal; Poikilocytosis Few; Segmented Neutrophils 86 % (50-85); Total Cells Counted 100
[2019-11-11] MEDS: MEROPENEM 500 MG in SODIUM CHLORIDE 0.9% 100 ML IV SCH (20:42)
[2019-11-11] MEDS: LINEZOLID INJ 600 MG in PREMIX 1 EACH IV SCH (20:42)
[2019-11-11] MEDS: APIXABAN 5 MG TABLET PO SCH (20:44)
[2019-11-11] MEDS: FUROSEMIDE 20 MG TABLET PO SCH (20:44)
[2019-11-11] MEDS: ROSUVASTATIN 20 MG TABLET PO SCH (20:44)
[2019-11-11] MEDS: DOCUSATE SODIUM 100 MG CAPSULE PO SCH (20:44)
[2019-11-12] MEDS: MEROPENEM 500 MG in SODIUM CHLORIDE 0.9% 100 ML IV SCH ×3 (04:36→21:24)
[2019-11-12 06:07] LABS: Basophils % 0.3 % (0.0-0.8); Eosinophils # 0.1 10*3/uL (0.0-0.87); Eosinophils % 0.5 % (0.00-10.9); Hematocrit 31.4 VOL% (42.0-52.0); Immature Granulocytes % 0.8 %; Immature Granulocytes Absolute 0.08 #; Lymphocytes # 0.9 10*3/uL (1.4-4.0); Lymphocytes % 8.8 % (21.2-54.2); Mean Corpuscular HGB Conc 31.8 GM/DL (32-36); Mean Corpuscular Volume 85.3 FL (87-102); Mean Platelet Volume 9.9 FL (9.6-12.0); Monocytes % 8.2 % (1.7-12.7); Neutrophils % 81.4 % (38.7-73.9); Platelet Count 235 T/CUMM (130-400); Red Blood Count 3.68 MC/CUMM (3.8-5.5); Red Cell Distribution Width 18.1 % (9.3-17.3); White Blood Count 10.6 T/CUMM (4-12)
[2019-11-12 06:27] LABS: Albumin 2.6 G/DL (3.4-5.0); Bilirubin,Total 0.9 MG/DL (0.2-1.0); Calcium 8.4 MG/DL (8.5-10.1); Osmolality,Calculated 273.7 MOS/KG (273-304); Risk Ratio 1.77; Total Protein 6.2 G/DL (6.4-8.3); VLDL CHOLESTEROL 9.2 MG/DL
[2019-11-12 06:28] LABS: Atypical Lymphocytes Few; Band Neutrophils 5 % (0-10); Hypochromasia 1+; Lymphocytes 14 % (20-55); Microcytosis 1+; Segmented Neutrophils 77 % (50-85); Total Cells Counted 100
[2019-11-12 06:29] LABS: Acanthocytes Few; Ovalocytes Slight; Platelet Estimate Normal
[2019-11-12] MEDS ORDERED: MAGNESIUM SULF INJ 3 GM in SODIUM CHLORIDE 0.9% 100 ML IV ONE (08:00)
[2019-11-12] MEDS ORDERED: Lenalidomide [Revlimid] 5 MG PO SCH (09:00)
[2019-11-12] MEDS: SODIUM CHLORIDE 0.45% 1,000 ML IV SCH ×2 (09:06→17:25)
[2019-11-12] MEDS: APIXABAN 5 MG TABLET PO SCH ×2 (09:06→21:24)
[2019-11-12] MEDS: DOCUSATE SODIUM 100 MG CAPSULE PO SCH ×2 (09:06→21:27)
[2019-11-12] MEDS: DILTIAZEM CD 240 MG CAPSULE PO SCH (09:06)
[2019-11-12 09:07] LABS: Apearance,Urine Slightly Hazy (Clear); Bacteria,Urine Few /HPF (Few); Bilirubin,Urine Negative (Negative); Blood, Urine Large mg/dL (Negative); Glucose,Urine (UA) Negative (Negative); Ketones,Urine Negative (Negative); Mucus,Urine Occasional /LPF (Occasional); Nitrite,Urine Positive (Negative); Protein,Urine Negative; RBC,Urine 13 /HPF (0-4); Squamous Epithelial Cell,Urine Occasional /HPF (0-10); Urine Color Yellow (Yellow); Urine Specific Gravity 1.009 (1.001-1.035); Urine Urobilinogen < 2.0 EU/DL (0.2-1.0); WBC,Urine 112 /HPF (0-6)
[2019-11-12] MEDS: ASPIRIN EC 81 MG TABLET PO SCH (09:08)
[2019-11-12] MEDS: PANTOPRAZOLE 40 MG TABLET PO SCH (09:08)
[2019-11-12] MEDS: AMIODARONE 200 MG TABLET PO SCH (09:08)
[2019-11-12] MEDS: METOPROLOL SUCCINATE XL 25 MG TABLET PO SCH (09:08)
[2019-11-12] MEDS: FUROSEMIDE 20 MG TABLET PO SCH ×2 (09:09→17:25)
[2019-11-12] MEDS: LINEZOLID INJ 600 MG in PREMIX 1 EACH IV SCH ×2 (10:06→22:59)
[2019-11-12] MEDS: ROSUVASTATIN 20 MG TABLET PO SCH (21:24)
[2019-11-13] MEDS: SODIUM CHLORIDE 0.45% 1,000 ML IV SCH ×3 (00:26→12:17)
[2019-11-13] MEDS: MEROPENEM 500 MG in SODIUM CHLORIDE 0.9% 100 ML IV SCH ×3 (04:49→21:29)
[2019-11-13 06:13] LABS: Basophils % 0.4 % (0.0-0.8); Eosinophils # 0.1 10*3/uL (0.0-0.87); Eosinophils % 0.6 % (0.00-10.9); Hematocrit 31.6 VOL% (42.0-52.0); Hemoglobin 9.8 GM/DL (14.0-18.0); Immature Granulocytes % 0.5 %; Immature Granulocytes Absolute 0.04 #; Lymphocytes % 12.6 % (21.2-54.2); Mean Platelet Volume 10.2 FL (9.6-12.0); Monocytes % 7.7 % (1.7-12.7); Neutrophils % 78.2 % (38.7-73.9); Platelet Count 229 T/CUMM (130-400); Red Blood Count 3.59 MC/CUMM (3.8-5.5); Red Cell Distribution Width 18.1 % (9.3-17.3); White Blood Count 7.9 T/CUMM (4-12)
[2019-11-13 06:45] LABS: Albumin 2.5 G/DL (3.4-5.0); Bilirubin,Total 0.7 MG/DL (0.2-1.0); Calcium 8.1 MG/DL (8.5-10.1); Osmolality,Calculated 271.8 MOS/KG (273-304); Total Protein 6.1 G/DL (6.4-8.3)
[2019-11-13] MEDS: APIXABAN 5 MG TABLET PO SCH ×2 (09:22→21:30)
[2019-11-13] MEDS: PANTOPRAZOLE 40 MG TABLET PO SCH (09:23)
[2019-11-13] MEDS: ASPIRIN EC 81 MG TABLET PO SCH (09:23)
[2019-11-13] MEDS: AMIODARONE 200 MG TABLET PO SCH (09:23)
[2019-11-13] MEDS: FUROSEMIDE 20 MG TABLET PO SCH ×2 (09:23→16:09)
[2019-11-13] MEDS: DILTIAZEM CD 240 MG CAPSULE PO SCH (09:23)
[2019-11-13] MEDS: METOPROLOL SUCCINATE XL 25 MG TABLET PO SCH (09:24)
[2019-11-13] MEDS: DOCUSATE SODIUM 100 MG CAPSULE PO SCH ×2 (09:24→21:30)
[2019-11-13] MEDS: LINEZOLID INJ 600 MG in PREMIX 1 EACH IV SCH ×2 (09:24→22:25)
[2019-11-13] MEDS: POTASSIUM CHLORIDE RIDER 10 MEQ in PREMIX 1 EACH IV SCH (16:09)
[2019-11-13] MEDS: ROSUVASTATIN 20 MG TABLET PO SCH (21:29)
[2019-11-14] MEDS: POTASSIUM CHLORIDE RIDER 10 MEQ in PREMIX 1 EACH IV SCH ×7 (01:42→12:29)
[2019-11-14] MEDS: MEROPENEM 500 MG in SODIUM CHLORIDE 0.9% 100 ML IV SCH ×3 (04:30→21:00)
[2019-11-14 06:31] LABS: Basophils % 0.6 % (0.0-0.8); Eosinophils # 0.1 10*3/uL (0.0-0.87); Eosinophils % 1.9 % (0.00-10.9); Hematocrit 29.3 VOL% (42.0-52.0); Hemoglobin 9.1 GM/DL (14.0-18.0); Immature Granulocytes % 0.4 %; Immature Granulocytes Absolute 0.03 #; Lymphocytes # 1.2 10*3/uL (1.4-4.0); Lymphocytes % 17.4 % (21.2-54.2); Mean Corpuscular HGB Conc 31.1 GM/DL (32-36); Mean Corpuscular Volume 86.7 FL (87-102); Mean Platelet Volume 10.4 FL (9.6-12.0); Monocytes % 8.7 % (1.7-12.7); Platelet Count 236 T/CUMM (130-400); Red Blood Count 3.38 MC/CUMM (3.8-5.5); White Blood Count 6.7 T/CUMM (4-12)
[2019-11-14] MEDS: SODIUM CHLORIDE 0.45% 1,000 ML IV SCH ×2 (06:36→07:59)
[2019-11-14 07:07] LABS: Albumin 2.3 G/DL (3.4-5.0); Bilirubin,Total 0.7 MG/DL (0.2-1.0); Osmolality,Calculated 272.7 MOS/KG (273-304); Total Protein 5.8 G/DL (6.4-8.3)
[2019-11-14] MEDS ORDERED: POTASSIUM CHLORIDE INJ 20 MEQ in SODIUM CHLORIDE 0.45% 1,000 ML IV SCH (08:24)
[2019-11-14] MEDS: APIXABAN 5 MG TABLET PO SCH ×2 (09:38→21:00)
[2019-11-14] MEDS: FUROSEMIDE 20 MG TABLET PO SCH ×2 (09:38→17:11)
[2019-11-14] MEDS: DOCUSATE SODIUM 100 MG CAPSULE PO SCH (09:38)
[2019-11-14] MEDS: DILTIAZEM CD 240 MG CAPSULE PO SCH (09:38)
[2019-11-14] MEDS: ASPIRIN EC 81 MG TABLET PO SCH (09:38)
[2019-11-14] MEDS: AMIODARONE 200 MG TABLET PO SCH (09:38)
[2019-11-14] MEDS: PANTOPRAZOLE 40 MG TABLET PO SCH (09:38)
[2019-11-14] MEDS: METOPROLOL SUCCINATE XL 25 MG TABLET PO SCH (09:38)
[2019-11-14] MEDS: LINEZOLID INJ 600 MG in PREMIX 1 EACH IV SCH ×2 (09:39→22:12)
[2019-11-14] MEDS: SODIUM CHLOR 0.45% KCL 20 MEQ 20 MEQ/1,000 ML BAG IV SCH (09:39)
[2019-11-14] MEDS: ROSUVASTATIN 20 MG TABLET PO SCH (21:00)
[2019-11-15] MEDS: DOCUSATE SODIUM 100 MG CAPSULE PO SCH ×3 (03:29→22:15)
[2019-11-15] MEDS: MEROPENEM 500 MG in SODIUM CHLORIDE 0.9% 100 ML IV SCH ×3 (04:58→21:32)
[2019-11-15 06:36] LABS: Basophils # 0.1 10*3/uL (0.0-0.2); Basophils % 1.4 % (0.0-0.8); Eosinophils # 0.1 10*3/uL (0.0-0.87); Eosinophils % 1.4 % (0.00-10.9); Hematocrit 29.9 VOL% (42.0-52.0); Hemoglobin 9.5 GM/DL (14.0-18.0); Immature Granulocytes % 0.3 %; Immature Granulocytes Absolute 0.02 #; Lymphocytes # 1.5 10*3/uL (1.4-4.0); Mean Corpuscular HGB Conc 31.8 GM/DL (32-36); Mean Corpuscular Volume 84.9 FL (87-102); Mean Platelet Volume 10.6 FL (9.6-12.0); Monocytes % 9.7 % (1.7-12.7); Neutrophils % 62.2 % (38.7-73.9); Platelet Count 248 T/CUMM (130-400); Red Blood Count 3.52 MC/CUMM (3.8-5.5); Red Cell Distribution Width 18.1 % (9.3-17.3); White Blood Count 5.9 T/CUMM (4-12)
[2019-11-15 06:50] LABS: Calcium 8.6 MG/DL (8.5-10.1); Osmolality,Calculated 272.7 MOS/KG (273-304)
[2019-11-15] MEDS: LINEZOLID INJ 600 MG in PREMIX 1 EACH IV SCH ×2 (09:23→22:14)
[2019-11-15] MEDS: PANTOPRAZOLE 40 MG TABLET PO SCH (09:25)
[2019-11-15] MEDS: ASPIRIN EC 81 MG TABLET PO SCH (09:25)
[2019-11-15] MEDS: DILTIAZEM CD 240 MG CAPSULE PO SCH (09:25)
[2019-11-15] MEDS: AMIODARONE 200 MG TABLET PO SCH (09:25)
[2019-11-15] MEDS: METOPROLOL SUCCINATE XL 25 MG TABLET PO SCH (09:25)
[2019-11-15] MEDS: FUROSEMIDE 20 MG TABLET PO SCH ×2 (09:25→16:45)
[2019-11-15] MEDS: APIXABAN 5 MG TABLET PO SCH ×2 (09:25→21:31)
[2019-11-15] MEDS: SODIUM CHLOR 0.45% KCL 20 MEQ 20 MEQ/1,000 ML BAG IV SCH (09:31)
[2019-11-15] MEDS ORDERED: POTASSIUM CHLORIDE 20 MEQ TABLET PO ONE (10:53)
[2019-11-15] MEDS: ROSUVASTATIN 20 MG TABLET PO SCH (21:31)
[2019-11-15] MEDS: ZALEPLON 5 MG CAPSULE PO SCH (22:15)
[2019-11-16] MEDS: MEROPENEM 500 MG in SODIUM CHLORIDE 0.9% 100 ML IV SCH ×3 (04:36→21:08)
[2019-11-16 04:49] LABS: Basophils # 0.1 10*3/uL (0.0-0.2); Eosinophils # 0.1 10*3/uL (0.0-0.87); Eosinophils % 1.4 % (0.00-10.9); Hemoglobin 9.5 GM/DL (14.0-18.0); Immature Granulocytes % 0.2 %; Immature Granulocytes Absolute 0.01 #; Lymphocytes # 1.4 10*3/uL (1.4-4.0); Lymphocytes % 27.9 % (21.2-54.2); Mean Corpuscular HGB Conc 31.7 GM/DL (32-36); Mean Platelet Volume 10.2 FL (9.6-12.0); Monocytes % 10.9 % (1.7-12.7); Neutrophils % 57.6 % (38.7-73.9); Platelet Count 258 T/CUMM (130-400); Red Blood Count 3.53 MC/CUMM (3.8-5.5)
[2019-11-16 05:25] LABS: Calcium 8.3 MG/DL (8.5-10.1); Osmolality,Calculated 274.5 MOS/KG (273-304)
[2019-11-16] MEDS: ASPIRIN EC 81 MG TABLET PO SCH (08:19)
[2019-11-16] MEDS: APIXABAN 5 MG TABLET PO SCH ×2 (08:19→21:08)
[2019-11-16] MEDS: METOPROLOL SUCCINATE XL 25 MG TABLET PO SCH (08:19)
[2019-11-16] MEDS: DILTIAZEM CD 240 MG CAPSULE PO SCH (08:19)
[2019-11-16] MEDS: SODIUM CHLOR 0.45% KCL 20 MEQ 20 MEQ/1,000 ML BAG IV SCH ×2 (08:19→09:45)
[2019-11-16] MEDS: LINEZOLID INJ 600 MG in PREMIX 1 EACH IV SCH ×2 (08:19→21:39)
[2019-11-16] MEDS: PANTOPRAZOLE 40 MG TABLET PO SCH (08:19)
[2019-11-16] MEDS: FUROSEMIDE 20 MG TABLET PO SCH ×2 (08:19→16:17)
[2019-11-16] MEDS: AMIODARONE 200 MG TABLET PO SCH (08:19)
[2019-11-16] MEDS: DOCUSATE SODIUM 100 MG CAPSULE PO SCH ×2 (08:19→21:08)
[2019-11-16] MEDS ORDERED: POTASSIUM CHLORIDE 20 MEQ TABLET PO ONE (11:18)
[2019-11-16] MEDS: ROSUVASTATIN 20 MG TABLET PO SCH (21:08)
[2019-11-16] MEDS: ZALEPLON 5 MG CAPSULE PO SCH (21:08)
[2019-11-17] MEDS: MEROPENEM 500 MG in SODIUM CHLORIDE 0.9% 100 ML IV SCH ×3 (04:23→21:09)
[2019-11-17] MEDS: LINEZOLID INJ 600 MG in PREMIX 1 EACH IV SCH ×2 (09:27→21:53)
[2019-11-17] MEDS: APIXABAN 5 MG TABLET PO SCH ×2 (09:38→21:09)
[2019-11-17] MEDS: METOPROLOL SUCCINATE XL 25 MG TABLET PO SCH (09:39)
[2019-11-17] MEDS: AMIODARONE 200 MG TABLET PO SCH (09:39)
[2019-11-17] MEDS: DOCUSATE SODIUM 100 MG CAPSULE PO SCH ×2 (09:39→21:09)
[2019-11-17] MEDS: FUROSEMIDE 20 MG TABLET PO SCH ×2 (09:39→16:06)
[2019-11-17] MEDS: DILTIAZEM CD 240 MG CAPSULE PO SCH (09:39)
[2019-11-17] MEDS: PANTOPRAZOLE 40 MG TABLET PO SCH (09:39)
[2019-11-17] MEDS: ASPIRIN EC 81 MG TABLET PO SCH (09:39)
[2019-11-17] MEDS: POTASSIUM CHLORIDE 20 MEQ TABLET PO SCH ×2 (09:49→21:09)
[2019-11-17] MEDS: POTASSIUM CHLORIDE RIDER 10 MEQ in PREMIX 1 EACH IV SCH ×3 (09:50→11:49)
[2019-11-17] MEDS: SODIUM CHLOR 0.45% KCL 20 MEQ 20 MEQ/1,000 ML BAG IV SCH (16:12)
[2019-11-17] MEDS: ROSUVASTATIN 20 MG TABLET PO SCH (21:08)
[2019-11-17] MEDS: ZALEPLON 5 MG CAPSULE PO SCH (22:54)
[2019-11-18] MEDS: MEROPENEM 500 MG in SODIUM CHLORIDE 0.9% 100 ML IV SCH ×3 (03:38→22:13)
[2019-11-18] MEDS: DOCUSATE SODIUM 100 MG CAPSULE PO SCH ×2 (08:15→22:12)
[2019-11-18] MEDS: METOPROLOL SUCCINATE XL 25 MG TABLET PO SCH (08:16)
[2019-11-18] MEDS: POTASSIUM CHLORIDE 20 MEQ TABLET PO SCH ×2 (08:16→22:11)
[2019-11-18] MEDS: AMIODARONE 200 MG TABLET PO SCH (08:16)
[2019-11-18] MEDS: FUROSEMIDE 20 MG TABLET PO SCH ×2 (08:17→15:33)
[2019-11-18] MEDS: ASPIRIN EC 81 MG TABLET PO SCH (08:17)
[2019-11-18] MEDS: PANTOPRAZOLE 40 MG TABLET PO SCH (08:17)
[2019-11-18] MEDS: APIXABAN 5 MG TABLET PO SCH ×2 (08:17→22:12)
[2019-11-18] MEDS: DILTIAZEM CD 240 MG CAPSULE PO SCH (08:17)
[2019-11-18] MEDS: LINEZOLID INJ 600 MG in PREMIX 1 EACH IV SCH ×2 (08:18→23:29)
[2019-11-18] MEDS: SODIUM CHLOR 0.45% KCL 20 MEQ 20 MEQ/1,000 ML BAG IV SCH ×2 (17:50→22:22)
[2019-11-18] MEDS: ROSUVASTATIN 20 MG TABLET PO SCH (22:11)
[2019-11-18] MEDS: ZALEPLON 5 MG CAPSULE PO SCH (22:11)
[2019-11-19 05:45] LABS: Basophils # 0.1 10*3/uL (0.0-0.2); Basophils % 2.2 % (0.0-0.8); Eosinophils # 0.1 10*3/uL (0.0-0.87); Hematocrit 32.5 VOL% (42.0-52.0); Hemoglobin 10.3 GM/DL (14.0-18.0); Immature Granulocytes % 0.4 %; Immature Granulocytes Absolute 0.02 #; Lymphocytes # 1.3 10*3/uL (1.4-4.0); Lymphocytes % 26.5 % (21.2-54.2); Mean Corpuscular HGB Conc 31.7 GM/DL (32-36); Mean Platelet Volume 10.3 FL (9.6-12.0); Monocytes % 8.1 % (1.7-12.7); Neutrophils % 61.8 % (38.7-73.9); Platelet Count 302 T/CUMM (130-400); Red Blood Count 3.78 MC/CUMM (3.8-5.5); White Blood Count 4.9 T/CUMM (4-12)
[2019-11-19 06:13] LABS: Calcium 9.2 MG/DL (8.5-10.1); Osmolality,Calculated 269.8 MOS/KG (273-304)
[2019-11-19] MEDS: DOCUSATE SODIUM 100 MG CAPSULE PO SCH (08:29)
[2019-11-19] MEDS: AMIODARONE 200 MG TABLET PO SCH (08:29)
[2019-11-19] MEDS: POTASSIUM CHLORIDE 20 MEQ TABLET PO SCH (08:30)
[2019-11-19] MEDS: PANTOPRAZOLE 40 MG TABLET PO SCH (08:30)
[2019-11-19] MEDS: APIXABAN 5 MG TABLET PO SCH (08:30)
[2019-11-19] MEDS: METOPROLOL SUCCINATE XL 25 MG TABLET PO SCH (08:30)
[2019-11-19] MEDS: DILTIAZEM CD 240 MG CAPSULE PO SCH (08:30)
[2019-11-19] MEDS: ASPIRIN EC 81 MG TABLET PO SCH (08:30)
[2019-11-19] MEDS: FUROSEMIDE 20 MG TABLET PO SCH (08:30)
[2019-11-19] MEDS ORDERED: ERTAPENEM 1,000 MG in SODIUM CHLORIDE 0.9% 100 ML IV SCH (09:00)
[2019-11-19] MEDS ORDERED: AMOXICILLIN 875 MG TABLET PO SCH (09:00)
[2019-11-19 12:46] VITALS: BP 128/55
== END 2019-11-19 14:45 | disposition home or self-care (01) | DRG 699 ==
LOC: N.5E 18:10
PROVIDERS: ADMIT Family Medicine; ATTEND Family Medicine

== ENCOUNTER 2020-03-11 15:19 | Inpatient (IN) ==
[2020-03-11 16:06] LABS: Eosinophils % 2.5 % (0.00-10.9); Hematocrit 30.7 VOL% (42.0-52.0); Hemoglobin 9.7 GM/DL (14.0-18.0); Immature Granulocytes % 1.7 %; Immature Granulocytes Absolute 0.02 #; Lymphocytes # 0.3 10*3/uL (1.4-4.0); Lymphocytes % 27.5 % (21.2-54.2); Mean Corpuscular HGB Conc 31.6 GM/DL (32-36); Mean Corpuscular Volume 84.3 FL (87-102); Mean Platelet Volume 10.3 FL (9.6-12.0); Monocytes % 9.2 % (1.7-12.7); Neutrophils % 59.1 % (38.7-73.9); Platelet Count 80 T/CUMM (130-400); Red Blood Count 3.64 MC/CUMM (3.8-5.5); Red Cell Distribution Width 20.8 % (9.3-17.3); White Blood Count 1.2 T/CUMM (4-12)
[2020-03-11 16:15] LABS: INR 1.2; PT Patient Result 12.5 SECS (9.8-11.9)
[2020-03-11 16:31] LABS: Apearance,Urine Slightly Hazy (Clear); Bacteria,Urine Many /HPF (Few); Bilirubin,Urine Negative (Negative); Blood, Urine Large mg/dL (Negative); Glucose,Urine (UA) Negative (Negative); Ketones,Urine Negative (Negative); Mucus,Urine Moderate /LPF (Occasional); Nitrite,Urine Positive (Negative); Protein,Urine 30 MG/DL; RBC,Urine 48 /HPF (0-4); Squamous Epithelial Cell,Urine Occasional /HPF (0-10); Urine Color Amber (Yellow); Urine Specific Gravity 1.024 (1.001-1.035); WBC,Urine 43 /HPF (0-6)
[2020-03-11 16:34] LABS: Band Neutrophils 1 % (0-10); Eosinophils 1 % (0-10); Lymphocytes 36 % (20-55); Segmented Neutrophils 54 % (50-85)
[2020-03-11 16:35] LABS: Albumin 2.2 G/DL (3.4-5.0); Bilirubin,Total 0.6 MG/DL (0.2-1.0); Calcium 7.7 MG/DL (8.5-10.1); Ferritin 152.7 ng/ml (26-388); Hypochromasia Slight; Microcytosis Slight; Osmolality,Calculated 273.8 MOS/KG (273-304); Platelet Estimate Decreased; Total Protein 4.8 G/DL (6.4-8.3)
[2020-03-11 16:36] LABS: Total Cells Counted 100
[2020-03-11] MEDS ORDERED: cefTRIAXone 1,000 MG in SODIUM CHLORIDE 0.9% 100 ML IV STA (16:49)
[2020-03-11] MEDS ORDERED: cefTRIAXone 1,000 MG in SYRINGE 1 EACH IV STA (16:53)
[2020-03-11 17:07] LABS: Sedimentation Rate-Westergren 54 MM/HR (0-20)
[2020-03-11] MEDS ORDERED: ONDANSETRON 4 MG/2 ML VIAL IV PRN (17:47)
[2020-03-11] MEDS ORDERED: MORPHINE 4 MG/1 ML VIAL IV PRN (17:47)
[2020-03-11] MEDS ORDERED: FUROSEMIDE 40 MG/4 ML VIAL IV STA (17:57)
[2020-03-11] MEDS: SODIUM CHLORIDE 0.9% 1,000 ML IV SCH (20:13)
[2020-03-11] MEDS: ROSUVASTATIN 20 MG TABLET PO SCH (21:50)
[2020-03-11] MEDS: APIXABAN 5 MG TABLET PO SCH (21:50)
[2020-03-11] MEDS: AMIODARONE 200 MG TABLET PO SCH (21:50)
[2020-03-11] MEDS: DOCUSATE SODIUM 100 MG CAPSULE PO SCH (21:50)
[2020-03-12] MEDS: ACETAMINOPHEN 325 MG TABLET PO PRN (00:02)
[2020-03-12] MEDS: SODIUM CHLORIDE 0.9% 1,000 ML IV SCH ×2 (05:32→10:46)
[2020-03-12 06:55] LABS: Eosinophils % 1.8 % (0.00-10.9); Hemoglobin 10.2 GM/DL (14.0-18.0); Immature Granulocytes % 0.9 %; Immature Granulocytes Absolute 0.01 #; Lymphocytes # 0.4 10*3/uL (1.4-4.0); Lymphocytes % 37.6 % (21.2-54.2); Mean Corpuscular HGB Conc 31.9 GM/DL (32-36); Mean Corpuscular Volume 83.3 FL (87-102); Monocytes % 14.7 % (1.7-12.7); Red Blood Count 3.84 MC/CUMM (3.8-5.5); Red Cell Distribution Width 21.2 % (9.3-17.3); White Blood Count 1.1 T/CUMM (4-12)
[2020-03-12 06:58] LABS: Platelet Count 83 T/CUMM (130-400)
[2020-03-12 07:25] LABS: Atypical Lymphocytes Few; Band Neutrophils 6 % (0-10); Hypochromasia 2+; Lymphocytes 35 % (20-55); Ovalocytes Few; Platelet Estimate Decreased; Polychromasia Slight; Segmented Neutrophils 48 % (50-85); Total Cells Counted 100
[2020-03-12 07:26] LABS: Elliptocytes Few; Schistocytes Slight; Target Cells Few
[2020-03-12 07:34] LABS: Bilirubin,Total 1.3 MG/DL (0.2-1.0); Calcium 7.4 MG/DL (8.5-10.1); Osmolality,Calculated 277.5 MOS/KG (273-304); Total Protein 5.2 G/DL (6.4-8.3)
[2020-03-12] MEDS ORDERED: FUROSEMIDE 40 MG TABLET PO PRN (08:11)
[2020-03-12] MEDS ORDERED: POTASSIUM CHLORIDE INJ 20 MEQ in SODIUM CHLORIDE 0.9% 1,000 ML IV SCH (08:12)
[2020-03-12] MEDS ORDERED: MAGNESIUM SULF RIDER 2 GM in PREMIX 1 EACH IV PRN (08:13)
[2020-03-12] MEDS ORDERED: POMALIDOMIDE 4 MG PO SCH (08:15)
[2020-03-12] MEDS ORDERED: VANCOMYCIN INJ 1,500 MG in SODIUM CHLORIDE 0.9% 500 ML IV SCH (08:30)
[2020-03-12] MEDS ORDERED: VANCOMYCIN INJ 2,000 MG in SODIUM CHLORIDE 0.9% 500 ML IV ONE (09:00)
[2020-03-12] MEDS: METOPROLOL SUCCINATE XL 25 MG TABLET PO SCH (10:36)
[2020-03-12] MEDS: DOCUSATE SODIUM 100 MG CAPSULE PO SCH ×2 (10:36→21:46)
[2020-03-12] MEDS: APIXABAN 5 MG TABLET PO SCH ×2 (10:36→21:46)
[2020-03-12] MEDS: DILTIAZEM CD 240 MG CAPSULE PO SCH (10:37)
[2020-03-12] MEDS: POTASSIUM CHLORIDE 20 MEQ TABLET PO PRN (10:37)
[2020-03-12] MEDS: AMIODARONE 200 MG TABLET PO SCH ×2 (10:37→21:46)
[2020-03-12] MEDS: PANTOPRAZOLE 40 MG TABLET PO SCH (10:37)
[2020-03-12] MEDS: POTASSIUM CHLORIDE RIDER 10 MEQ in PREMIX 1 EACH IV SCH ×2 (10:39→11:51)
[2020-03-12] MEDS: FILGRASTIM-SNDZ 300 MCG/0.5 ML SYRINGE SUBCUT SCH (11:54)
[2020-03-12] MEDS: SODIUM CHLOR 0.9% KCL 20 MEQ 20 MEQ/1,000 ML BAG IV SCH (13:16)
[2020-03-12] MEDS: PIPERACILLIN/TAZOBACTAM 3,375 MG in SODIUM CHLORIDE 0.9% 100 ML IV SCH ×2 (14:36→23:30)
[2020-03-12] MEDS: ROSUVASTATIN 20 MG TABLET PO SCH (21:46)
[2020-03-12] MEDS: VANCOMYCIN INJ 1,500 MG in SODIUM CHLORIDE 0.9% 500 ML IV SCH (21:47)
[2020-03-13] MEDS: SODIUM CHLOR 0.9% KCL 20 MEQ 20 MEQ/1,000 ML BAG IV SCH ×3 (02:15→22:49)
[2020-03-13] MEDS: PIPERACILLIN/TAZOBACTAM 3,375 MG in SODIUM CHLORIDE 0.9% 100 ML IV SCH ×3 (06:09→21:45)
[2020-03-13 06:29] LABS: Eosinophils # 0.1 10*3/uL (0.0-0.87); Eosinophils % 7.4 % (0.00-10.9); Hematocrit 30.7 VOL% (42.0-52.0); Hemoglobin 9.6 GM/DL (14.0-18.0); Lymphocytes # 0.3 10*3/uL (1.4-4.0); Lymphocytes % 38.2 % (21.2-54.2); Mean Corpuscular HGB Conc 31.3 GM/DL (32-36); Mean Corpuscular Volume 85.5 FL (87-102); Mean Platelet Volume 10.7 FL (9.6-12.0); Monocytes % 16.2 % (1.7-12.7); Neutrophils % 38.2 % (38.7-73.9); Red Blood Count 3.59 MC/CUMM (3.8-5.5); Red Cell Distribution Width 20.9 % (9.3-17.3)
[2020-03-13 06:32] LABS: Platelet Count 61 T/CUMM (130-400)
[2020-03-13 06:33] LABS: White Blood Count 0.7 T/CUMM (4-12)
[2020-03-13 06:56] LABS: Albumin 1.9 G/DL (3.4-5.0); Bilirubin,Total 0.7 MG/DL (0.2-1.0); Calcium 7.5 MG/DL (8.5-10.1); Osmolality,Calculated 273.8 MOS/KG (273-304); Risk Ratio 2.54; Thyroid Stimulating Hormone 2.21 uIU/ml (0.358-3.74); Total Protein 5.1 G/DL (6.4-8.3); VLDL CHOLESTEROL 12.6 MG/DL
[2020-03-13 06:59] LABS: Eosinophils 13 % (0-10); Hypochromasia 1+; Lymphocytes 40 % (20-55); Segmented Neutrophils 47 % (50-85); Total Cells Counted 100
[2020-03-13 07:00] LABS: Acanthocytes Few; Burr Cells Slight; Microcytosis 1+; Platelet Estimate Decreased; Target Cells Slight
[2020-03-13] MEDS: DILTIAZEM CD 240 MG CAPSULE PO SCH (09:41)
[2020-03-13] MEDS: DOCUSATE SODIUM 100 MG CAPSULE PO SCH ×2 (09:41→21:48)
[2020-03-13] MEDS: AMIODARONE 200 MG TABLET PO SCH ×2 (09:41→21:48)
[2020-03-13] MEDS: PANTOPRAZOLE 40 MG TABLET PO SCH (09:41)
[2020-03-13] MEDS: METOPROLOL SUCCINATE XL 25 MG TABLET PO SCH (09:41)
[2020-03-13] MEDS: MONTELUKAST 10 MG TABLET PO SCH (09:42)
[2020-03-13] MEDS: APIXABAN 5 MG TABLET PO SCH ×2 (09:42→21:48)
[2020-03-13] MEDS: VANCOMYCIN INJ 1,500 MG in SODIUM CHLORIDE 0.9% 500 ML IV SCH ×2 (09:49→22:49)
[2020-03-13] MEDS: FILGRASTIM-SNDZ 300 MCG/0.5 ML SYRINGE SUBCUT SCH (09:50)
[2020-03-13] MEDS: ACETAMINOPHEN 325 MG TABLET PO PRN (21:48)
[2020-03-13] MEDS: ROSUVASTATIN 20 MG TABLET PO SCH (21:54)
[2020-03-14 05:58] LABS: Basophils % 0.9 % (0.0-0.8); Eosinophils # 0.1 10*3/uL (0.0-0.87); Eosinophils % 4.6 % (0.00-10.9); Hematocrit 32.7 VOL% (42.0-52.0); Hemoglobin 10.3 GM/DL (14.0-18.0); Immature Granulocytes % 0.9 %; Immature Granulocytes Absolute 0.01 #; Lymphocytes # 0.5 10*3/uL (1.4-4.0); Mean Corpuscular HGB Conc 31.5 GM/DL (32-36); Mean Corpuscular Volume 84.9 FL (87-102); Mean Platelet Volume 10.2 FL (9.6-12.0); Monocytes % 18.3 % (1.7-12.7); Neutrophils % 30.3 % (38.7-73.9); Red Blood Count 3.85 MC/CUMM (3.8-5.5); Red Cell Distribution Width 20.9 % (9.3-17.3); White Blood Count 1.1 T/CUMM (4-12)
[2020-03-14 05:59] LABS: Platelet Count 58 T/CUMM (130-400)
[2020-03-14 06:05] LABS: Albumin 1.9 G/DL (3.4-5.0); Calcium 7.8 MG/DL (8.5-10.1); Osmolality,Calculated 274.7 MOS/KG (273-304); Total Protein 5.2 G/DL (6.4-8.3)
[2020-03-14] MEDS: PIPERACILLIN/TAZOBACTAM 3,375 MG in SODIUM CHLORIDE 0.9% 100 ML IV SCH (06:26)
[2020-03-14 06:31] LABS: Atypical Lymphocytes Few; Band Neutrophils 2 % (0-10); Eosinophils 6 % (0-10); Hypochromasia 1+; Lymphocytes 38 % (20-55); Microcytosis 1+; Nucleated Red Blood Cells 1 (0-5); Ovalocytes Slight; Segmented Neutrophils 38 % (50-85); Total Cells Counted 100
[2020-03-14 06:32] LABS: Platelet Estimate Decreased
[2020-03-14] MEDS: DOCUSATE SODIUM 100 MG CAPSULE PO SCH ×2 (09:19→20:09)
[2020-03-14] MEDS: DILTIAZEM CD 240 MG CAPSULE PO SCH (09:19)
[2020-03-14] MEDS: METOPROLOL SUCCINATE XL 25 MG TABLET PO SCH (09:23)
[2020-03-14] MEDS: APIXABAN 5 MG TABLET PO SCH ×2 (09:23→20:08)
[2020-03-14] MEDS: PANTOPRAZOLE 40 MG TABLET PO SCH (09:23)
[2020-03-14] MEDS: MONTELUKAST 10 MG TABLET PO SCH (09:23)
[2020-03-14] MEDS: AMIODARONE 200 MG TABLET PO SCH ×2 (09:23→20:09)
[2020-03-14] MEDS: FILGRASTIM-SNDZ 300 MCG/0.5 ML SYRINGE SUBCUT SCH (09:23)
[2020-03-14] MEDS: POTASSIUM CHLORIDE 20 MEQ TABLET PO PRN (09:31)
[2020-03-14] MEDS: VANCOMYCIN INJ 1,500 MG in SODIUM CHLORIDE 0.9% 500 ML IV SCH ×2 (10:30→20:15)
[2020-03-14] MEDS ORDERED: FUROSEMIDE 40 MG/4 ML VIAL IV ONE (12:04)
[2020-03-14] MEDS ORDERED: POTASSIUM CHLORIDE 20 MEQ TABLET PO SCH (12:06)
[2020-03-14] MEDS: ALBUMIN 25% 25 GM in PREMIX 1 EACH IV SCH ×2 (13:12→20:14)
[2020-03-14] MEDS: ALBUTEROL/IPRATROPIUM 3 ML NEB RESP TX SCH ×2 (14:36→19:58)
[2020-03-14] MEDS: MEROPENEM 500 MG in SODIUM CHLORIDE 0.9% 100 ML IV SCH ×2 (15:36→22:52)
[2020-03-14] MEDS: SODIUM CHLOR 0.9% KCL 20 MEQ 20 MEQ/1,000 ML BAG IV SCH (15:38)
[2020-03-14] MEDS: ROSUVASTATIN 20 MG TABLET PO SCH (20:08)
[2020-03-15] MEDS: ALBUTEROL/IPRATROPIUM 3 ML NEB RESP TX SCH ×4 (01:29→19:15)
[2020-03-15] MEDS: ALBUMIN 25% 25 GM in PREMIX 1 EACH IV SCH ×3 (04:25→21:25)
[2020-03-15] MEDS: MEROPENEM 500 MG in SODIUM CHLORIDE 0.9% 100 ML IV SCH ×3 (05:26→21:24)
[2020-03-15 07:15] LABS: Basophils % 0.7 % (0.0-0.8); Eosinophils % 2.1 % (0.00-10.9); Hematocrit 29.4 VOL% (42.0-52.0); Hemoglobin 9.4 GM/DL (14.0-18.0); Immature Granulocytes % 2.1 %; Immature Granulocytes Absolute 0.03 #; Lymphocytes # 0.6 10*3/uL (1.4-4.0); Lymphocytes % 40.6 % (21.2-54.2); Mean Platelet Volume 10.5 FL (9.6-12.0); Neutrophils % 33.5 % (38.7-73.9); Red Cell Distribution Width 20.8 % (9.3-17.3); White Blood Count 1.4 T/CUMM (4-12)
[2020-03-15 07:23] LABS: Platelet Count 60 T/CUMM (130-400)
[2020-03-15 07:42] LABS: Albumin 2.1 G/DL (3.4-5.0); Bilirubin,Total 0.4 MG/DL (0.2-1.0); Calcium 8.1 MG/DL (8.5-10.1); Osmolality,Calculated 280.3 MOS/KG (273-304); Total Protein 5.3 G/DL (6.4-8.3)
[2020-03-15 08:09] LABS: Band Neutrophils 10 % (0-10); Eosinophils 2 % (0-10); Lymphocytes 40 % (20-55); Metamyelocytes 3 %; Platelet Estimate Decreased; Segmented Neutrophils 25 % (50-85); Total Cells Counted 100
[2020-03-15 08:10] LABS: Anisocytosis 2+; Hypochromasia 1+; Macrocytosis 2+; Ovalocytes 1+; Target Cells Few
[2020-03-15] MEDS: METOPROLOL SUCCINATE XL 25 MG TABLET PO SCH (09:01)
[2020-03-15] MEDS: DILTIAZEM CD 240 MG CAPSULE PO SCH (09:02)
[2020-03-15] MEDS: PANTOPRAZOLE 40 MG TABLET PO SCH (09:02)
[2020-03-15] MEDS: MONTELUKAST 10 MG TABLET PO SCH (09:03)
[2020-03-15] MEDS: AMIODARONE 200 MG TABLET PO SCH ×2 (09:03→21:19)
[2020-03-15] MEDS: APIXABAN 5 MG TABLET PO SCH ×2 (09:03→21:19)
[2020-03-15] MEDS: FUROSEMIDE 40 MG/4 ML VIAL IV SCH (09:03)
[2020-03-15] MEDS: DOCUSATE SODIUM 100 MG CAPSULE PO SCH ×2 (09:03→21:19)
[2020-03-15] MEDS: FILGRASTIM-SNDZ 300 MCG/0.5 ML SYRINGE SUBCUT SCH (09:03)
[2020-03-15] MEDS: SODIUM CHLOR 0.9% KCL 20 MEQ 20 MEQ/1,000 ML BAG IV SCH ×2 (09:04→18:16)
[2020-03-15] MEDS: VANCOMYCIN INJ 1,500 MG in SODIUM CHLORIDE 0.9% 500 ML IV SCH ×3 (09:04→23:58)
[2020-03-15] MEDS: ROSUVASTATIN 20 MG TABLET PO SCH (21:19)
[2020-03-16] MEDS: ALBUTEROL/IPRATROPIUM 3 ML NEB RESP TX SCH ×3 (01:25→13:17)
[2020-03-16] MEDS: ALBUMIN 25% 25 GM in PREMIX 1 EACH IV SCH (04:56)
[2020-03-16 05:59] LABS: Basophils % 1.3 % (0.0-0.8); Eosinophils % 0.9 % (0.00-10.9); Hematocrit 26.9 VOL% (42.0-52.0); Hemoglobin 8.9 GM/DL (14.0-18.0); Lymphocytes # 0.6 10*3/uL (1.4-4.0); Lymphocytes % 27.6 % (21.2-54.2); Mean Corpuscular HGB Conc 33.1 GM/DL (32-36); Mean Corpuscular Volume 81.3 FL (87-102); Mean Platelet Volume 11.1 FL (9.6-12.0); Monocytes % 12.9 % (1.7-12.7); Neutrophils % 57.3 % (38.7-73.9); Red Blood Count 3.31 MC/CUMM (3.8-5.5); Red Cell Distribution Width 20.8 % (9.3-17.3); White Blood Count 2.3 T/CUMM (4-12)
[2020-03-16 06:00] LABS: Platelet Count 58 T/CUMM (130-400)
[2020-03-16] MEDS: MEROPENEM 500 MG in SODIUM CHLORIDE 0.9% 100 ML IV SCH (06:05)
[2020-03-16 06:35] LABS: Albumin 2.5 G/DL (3.4-5.0); Bilirubin,Total 0.9 MG/DL (0.2-1.0); Calcium 8.2 MG/DL (8.5-10.1); Osmolality,Calculated 278.4 MOS/KG (273-304); Total Protein 5.5 G/DL (6.4-8.3)
[2020-03-16 07:43] LABS: Band Neutrophils 3 % (0-10); Eosinophils 1 % (0-10); Hypochromasia 1+; Lymphocytes 27 % (20-55); Microcytosis Slight; Ovalocytes Slight; Platelet Estimate Decreased; Segmented Neutrophils 65 % (50-85); Total Cells Counted 100
[2020-03-16] MEDS ORDERED: MEROPENEM 1,000 MG in SODIUM CHLORIDE 0.9% 100 ML IV SCH ×2 (08:29→10:00)
[2020-03-16] MEDS ORDERED: POTASSIUM CHLORIDE 20 MEQ TABLET PO SCH (09:00)
[2020-03-16] MEDS: SODIUM CHLOR 0.9% KCL 20 MEQ 20 MEQ/1,000 ML BAG IV SCH (09:37)
[2020-03-16] MEDS: FUROSEMIDE 40 MG/4 ML VIAL IV SCH (09:39)
[2020-03-16] MEDS: VANCOMYCIN INJ 1,500 MG in SODIUM CHLORIDE 0.9% 500 ML IV SCH (09:39)
[2020-03-16] MEDS: FILGRASTIM-SNDZ 300 MCG/0.5 ML SYRINGE SUBCUT SCH (09:39)
[2020-03-16] MEDS: METOPROLOL SUCCINATE XL 25 MG TABLET PO SCH (09:40)
[2020-03-16] MEDS: MONTELUKAST 10 MG TABLET PO SCH (09:40)
[2020-03-16] MEDS: DOCUSATE SODIUM 100 MG CAPSULE PO SCH (09:40)
[2020-03-16] MEDS: APIXABAN 5 MG TABLET PO SCH (09:40)
[2020-03-16] MEDS: AMIODARONE 200 MG TABLET PO SCH (09:40)
[2020-03-16] MEDS: DILTIAZEM CD 240 MG CAPSULE PO SCH (09:40)
[2020-03-16] MEDS: PANTOPRAZOLE 40 MG TABLET PO SCH (09:40)
[2020-03-16 11:34] VITALS: BP 119/74
== END 2020-03-16 11:45 | disposition home or self-care (01) | DRG 698 ==
LOC: EDUNIT# → EDBD → N.EDINP 15:19 → N.ED 15:19 → N.TELEN 20:00 → N.4E 03-13 17:51
PROVIDERS: ADMIT Family Medicine; ATTEND Family Medicine

== ENCOUNTER 2020-04-20 20:48 | Inpatient (IN) ==
[2020-04-21] MEDS ORDERED: ACETAMINOPHEN 500 MG TABLET PO STA (01:00)
[2020-04-21] MEDS ORDERED: SODIUM CHLORIDE 0.9% 1,000 ML IV STA (01:03)
[2020-04-21] MEDS ORDERED: ACETAMINOPHEN 500 MG TABLET ONE (01:13)
[2020-04-21 01:29] LABS: Alanine Aminotransferase 29 U/L (16-61); Albumin 2.3 G/DL (3.4-5.0); Alkaline Phosphatase 52 U/L (45-117); Aspartate Amino Transferase 17 U/L (0-37); Basophils % 0.1 % (0.0-0.8); Blood Urea Nitrogen 15 MG/DL (7-18); Calcium 8.8 MG/DL (8.5-10.1); Eosinophils # 0.1 10*3/uL (0.0-0.87); Eosinophils % 0.7 % (0.00-10.9); Estimated Glom Filtration Rate 120 ML/MIN; Glucose 97 MG/DL (74-106); Hematocrit 26.3 VOL% (42.0-52.0); Hemoglobin 8.4 GM/DL (14.0-18.0); Immature Granulocytes % 0.9 %; Immature Granulocytes Absolute 0.07 #; Lymphocytes # 0.8 10*3/uL (1.4-4.0); Mean Corpuscular HGB Conc 31.9 GM/DL (32-36); Mean Corpuscular Volume 88.9 FL (87-102); Mean Platelet Volume 10.6 FL (9.6-12.0); Monocytes % 3.1 % (1.7-12.7); Neutrophils % 84.2 % (38.7-73.9); Platelet Count 130 T/CUMM (130-400); Red Blood Count 2.96 MC/CUMM (3.8-5.5); Red Cell Distribution Width 23.5 % (9.3-17.3); White Blood Count 7.5 T/CUMM (4-12)
[2020-04-21 01:54] LABS: Apearance,Urine Slightly Hazy (Clear); Bacteria,Urine Occasional /HPF (Few); Bilirubin,Urine Negative (Negative); Blood, Urine Moderate mg/dL (Negative); Glucose,Urine (UA) Negative (Negative); Ketones,Urine Negative (Negative); Mucus,Urine Few /LPF (Occasional); Nitrite,Urine Negative (Negative); Protein,Urine 100 MG/DL; RBC,Urine 55 /HPF (0-4); Squamous Epithelial Cell,Urine Occasional /HPF (0-10); Urine Color Yellow (Yellow); Urine Specific Gravity 1.021 (1.001-1.035); Urine Urobilinogen < 2.0 EU/DL (0.2-1.0); WBC,Urine 221 /HPF (0-6)
[2020-04-21 02:34] LABS: Lymphocytes 12 % (20-55); Segmented Neutrophils 87 % (50-85); Total Cells Counted 100
[2020-04-21 02:35] LABS: Anisocytosis 1+; Hypochromasia 1+; Ovalocytes 1+; Platelet Estimate Adequate; Tear Drop Cells Few
[2020-04-21] MEDS ORDERED: ONDANSETRON 4 MG/2 ML VIAL IV PRN (04:29)
[2020-04-21] MEDS ORDERED: LEVOFLOXACIN INJ 750 MG in PREMIX 1 EACH IV STA (04:29)
[2020-04-21] MEDS: SODIUM CHLORIDE 0.9% 1,000 ML IV SCH ×2 (04:45→16:13)
[2020-04-21] MEDS ORDERED: LEVOFLOXACIN INJ 150 ML IV ONE (04:54)
[2020-04-21] MEDS: PIPERACILLIN/TAZOBACTAM 3,375 MG in SODIUM CHLORIDE 0.9% 100 ML IV SCH ×2 (09:01→16:23)
[2020-04-21] MEDS: AMIODARONE 200 MG TABLET PO SCH ×2 (09:51→21:28)
[2020-04-21] MEDS: DOCUSATE SODIUM 100 MG CAPSULE PO SCH ×2 (09:51→21:32)
[2020-04-21] MEDS: ASPIRIN EC 81 MG TABLET PO SCH (09:51)
[2020-04-21] MEDS: PANTOPRAZOLE 40 MG TABLET PO SCH (09:51)
[2020-04-21] MEDS: APIXABAN 5 MG TABLET PO SCH ×2 (09:51→21:34)
[2020-04-21] MEDS: METOPROLOL SUCCINATE XL 25 MG TABLET PO SCH (09:52)
[2020-04-21] MEDS: ACETAMINOPHEN 325 MG TABLET PO PRN ×2 (14:42→21:28)
[2020-04-21] MEDS: ROSUVASTATIN 20 MG TABLET PO SCH (21:28)
[2020-04-22] MEDS: PIPERACILLIN/TAZOBACTAM 3,375 MG in SODIUM CHLORIDE 0.9% 100 ML IV SCH ×4 (00:04→23:45)
[2020-04-22 06:23] LABS: Eosinophils # 0.1 10*3/uL (0.0-0.87); Eosinophils % 1.2 % (0.00-10.9); Hematocrit 28.1 VOL% (42.0-52.0); Hemoglobin 9.2 GM/DL (14.0-18.0); Immature Granulocytes % 1.4 %; Immature Granulocytes Absolute 0.07 #; Lymphocytes # 0.7 10*3/uL (1.4-4.0); Lymphocytes % 13.6 % (21.2-54.2); Mean Corpuscular HGB Conc 32.7 GM/DL (32-36); Mean Corpuscular Volume 85.2 FL (87-102); Mean Platelet Volume 10.1 FL (9.6-12.0); Monocytes % 4.5 % (1.7-12.7); Neutrophils % 79.3 % (38.7-73.9); Platelet Count 90 T/CUMM (130-400); Red Cell Distribution Width 23.5 % (9.3-17.3); White Blood Count 4.9 T/CUMM (4-12)
[2020-04-22 06:42] LABS: Albumin 1.7 G/DL (3.4-5.0); Bilirubin,Total 0.8 MG/DL (0.2-1.0); Calcium 8.1 MG/DL (8.5-10.1); Osmolality,Calculated 273.7 MOS/KG (273-304); Total Protein 5.1 G/DL (6.4-8.3)
[2020-04-22 06:55] LABS: Atypical Lymphocytes Few; Band Neutrophils 3 % (0-10); Lymphocytes 13 % (20-55); Segmented Neutrophils 81 % (50-85); Total Cells Counted 100
[2020-04-22 06:56] LABS: Acanthocytes Few; Hypochromasia 1+; Microcytosis 1+; Ovalocytes Few; Platelet Estimate Decreased
[2020-04-22] MEDS: SODIUM CHLORIDE 0.9% 1,000 ML IV SCH (07:52)
[2020-04-22] MEDS ORDERED: POTASSIUM CHLORIDE INJ 20 MEQ in SODIUM CHLORIDE 0.9% 1,000 ML IV SCH (08:15)
[2020-04-22] MEDS: FUROSEMIDE 40 MG TABLET PO PRN (09:45)
[2020-04-22] MEDS: AMIODARONE 200 MG TABLET PO SCH ×2 (09:45→21:20)
[2020-04-22] MEDS: ASPIRIN EC 81 MG TABLET PO SCH (09:46)
[2020-04-22] MEDS: PANTOPRAZOLE 40 MG TABLET PO SCH (09:46)
[2020-04-22] MEDS: METOPROLOL SUCCINATE XL 25 MG TABLET PO SCH (09:46)
[2020-04-22] MEDS: APIXABAN 5 MG TABLET PO SCH ×2 (09:46→21:20)
[2020-04-22] MEDS: DOCUSATE SODIUM 100 MG CAPSULE PO SCH ×2 (09:46→21:22)
[2020-04-22] MEDS: MONTELUKAST 10 MG TABLET PO SCH (09:46)
[2020-04-22] MEDS: SODIUM CHLOR 0.9% KCL 20 MEQ 20 MEQ/1,000 ML BAG IV SCH ×2 (10:30→18:22)
[2020-04-22] MEDS: ACETAMINOPHEN 325 MG TABLET PO PRN (15:33)
[2020-04-22] MEDS: ROSUVASTATIN 20 MG TABLET PO SCH (21:20)
[2020-04-23] MEDS: ACETAMINOPHEN 325 MG TABLET PO PRN ×3 (03:39→18:07)
[2020-04-23 06:08] LABS: Basophils % 0.2 % (0.0-0.8); Eosinophils # 0.1 10*3/uL (0.0-0.87); Eosinophils % 1.5 % (0.00-10.9); Hematocrit 26.9 VOL% (42.0-52.0); Hemoglobin 8.8 GM/DL (14.0-18.0); Immature Granulocytes % 0.4 %; Immature Granulocytes Absolute 0.02 #; Lymphocytes # 0.8 10*3/uL (1.4-4.0); Lymphocytes % 14.3 % (21.2-54.2); Mean Corpuscular HGB Conc 32.7 GM/DL (32-36); Mean Corpuscular Volume 86.8 FL (87-102); Mean Platelet Volume 10.7 FL (9.6-12.0); Monocytes % 7.6 % (1.7-12.7); Red Cell Distribution Width 23.4 % (9.3-17.3); White Blood Count 5.5 T/CUMM (4-12)
[2020-04-23 06:09] LABS: Platelet Count 89 T/CUMM (130-400)
[2020-04-23 06:29] LABS: Albumin 1.7 G/DL (3.4-5.0); Bilirubin,Total 0.8 MG/DL (0.2-1.0); Calcium 7.8 MG/DL (8.5-10.1); Total Protein 5.1 G/DL (6.4-8.3)
[2020-04-23 07:07] LABS: Band Neutrophils 4 % (0-10); Eosinophils 2 % (0-10); Lymphocytes 15 % (20-55); Platelet Estimate Decreased; Segmented Neutrophils 70 % (50-85); Total Cells Counted 100
[2020-04-23] MEDS: PIPERACILLIN/TAZOBACTAM 3,375 MG in SODIUM CHLORIDE 0.9% 100 ML IV SCH ×2 (07:17→15:56)
[2020-04-23] MEDS: METOPROLOL SUCCINATE XL 25 MG TABLET PO SCH (08:15)
[2020-04-23] MEDS: MONTELUKAST 10 MG TABLET PO SCH (08:15)
[2020-04-23] MEDS: PANTOPRAZOLE 40 MG TABLET PO SCH (08:15)
[2020-04-23] MEDS: AMIODARONE 200 MG TABLET PO SCH ×2 (08:15→20:29)
[2020-04-23] MEDS: APIXABAN 5 MG TABLET PO SCH ×2 (08:15→20:29)
[2020-04-23] MEDS: ASPIRIN EC 81 MG TABLET PO SCH (08:16)
[2020-04-23] MEDS: POTASSIUM CHLORIDE RIDER 10 MEQ in PREMIX 1 EACH IV SCH ×3 (08:26→13:23)
[2020-04-23] MEDS: DOCUSATE SODIUM 100 MG CAPSULE PO SCH ×2 (08:29→21:17)
[2020-04-23] MEDS: SODIUM CHLOR 0.9% KCL 20 MEQ 20 MEQ/1,000 ML BAG IV SCH ×2 (11:05→18:12)
[2020-04-23] MEDS: ROSUVASTATIN 20 MG TABLET PO SCH (20:29)
[2020-04-24] MEDS: PIPERACILLIN/TAZOBACTAM 3,375 MG in SODIUM CHLORIDE 0.9% 100 ML IV SCH ×4 (00:11→17:27)
[2020-04-24] MEDS: ACETAMINOPHEN 325 MG TABLET PO PRN ×4 (03:30→17:41)
[2020-04-24] MEDS: SODIUM CHLOR 0.9% KCL 20 MEQ 20 MEQ/1,000 ML BAG IV SCH (03:39)
[2020-04-24 06:01] LABS: Basophils % 0.2 % (0.0-0.8); Eosinophils # 0.1 10*3/uL (0.0-0.87); Eosinophils % 1.8 % (0.00-10.9); Hematocrit 27.2 VOL% (42.0-52.0); Hemoglobin 8.8 GM/DL (14.0-18.0); Immature Granulocytes % 0.6 %; Immature Granulocytes Absolute 0.03 #; Lymphocytes # 0.9 10*3/uL (1.4-4.0); Mean Corpuscular HGB Conc 32.4 GM/DL (32-36); Mean Corpuscular Volume 86.3 FL (87-102); Mean Platelet Volume 10.9 FL (9.6-12.0); Monocytes % 8.3 % (1.7-12.7); Neutrophils % 73.1 % (38.7-73.9); Red Blood Count 3.15 MC/CUMM (3.8-5.5); White Blood Count 5.4 T/CUMM (4-12)
[2020-04-24 06:08] LABS: Platelet Count 84 T/CUMM (130-400)
[2020-04-24 06:22] LABS: Albumin 1.8 G/DL (3.4-5.0); Total Protein 5.3 G/DL (6.4-8.3)
[2020-04-24 07:30] LABS: Anisocytosis 1+; Ovalocytes Few; Platelet Estimate Decreased; Poikilocytosis 1+
[2020-04-24 07:31] LABS: Burr Cells Few
[2020-04-24] MEDS: METOPROLOL SUCCINATE XL 25 MG TABLET PO SCH (10:59)
[2020-04-24] MEDS: AMIODARONE 200 MG TABLET PO SCH ×2 (10:59→21:55)
[2020-04-24] MEDS: ASPIRIN EC 81 MG TABLET PO SCH (10:59)
[2020-04-24] MEDS: PANTOPRAZOLE 40 MG TABLET PO SCH (10:59)
[2020-04-24] MEDS: DOCUSATE SODIUM 100 MG CAPSULE PO SCH ×2 (10:59→21:54)
[2020-04-24] MEDS: APIXABAN 5 MG TABLET PO SCH ×2 (11:00→21:55)
[2020-04-24] MEDS: MONTELUKAST 10 MG TABLET PO SCH (11:00)
[2020-04-24] MEDS: FUROSEMIDE 40 MG TABLET PO PRN (11:10)
[2020-04-24] MEDS ORDERED: FUROSEMIDE 40 MG/4 ML VIAL IV ONE (14:13)
[2020-04-24] MEDS ORDERED: POTASSIUM CHLORIDE 20 MEQ TABLET PO ONE (14:14)
[2020-04-24] MEDS: ROSUVASTATIN 20 MG TABLET PO SCH (21:54)
[2020-04-24] MEDS: ALBUMIN 25% 25 GM in PREMIX 1 EACH IV SCH (23:03)
[2020-04-25] MEDS: PIPERACILLIN/TAZOBACTAM 3,375 MG in SODIUM CHLORIDE 0.9% 100 ML IV SCH ×3 (00:50→18:27)
[2020-04-25] MEDS: ACETAMINOPHEN 325 MG TABLET PO PRN ×2 (03:16→14:48)
[2020-04-25 06:04] LABS: Eosinophils # 0.1 10*3/uL (0.0-0.87); Eosinophils % 2.2 % (0.00-10.9); Hemoglobin 8.3 GM/DL (14.0-18.0); Neutrophils % 70.8 % (38.7-73.9)
[2020-04-25 06:11] LABS: Basophils % 0.4 % (0.0-0.8); Hematocrit 25.6 VOL% (42.0-52.0); Immature Granulocytes % 0.9 %; Immature Granulocytes Absolute 0.04 #; Lymphocytes # 0.8 10*3/uL (1.4-4.0); Lymphocytes % 16.6 % (21.2-54.2); Mean Corpuscular HGB Conc 32.4 GM/DL (32-36); Mean Corpuscular Volume 86.8 FL (87-102); Monocytes % 9.1 % (1.7-12.7); Platelet Count 72 T/CUMM (130-400); Red Blood Count 2.95 MC/CUMM (3.8-5.5); Red Cell Distribution Width 22.8 % (9.3-17.3); White Blood Count 4.5 T/CUMM (4-12)
[2020-04-25 06:27] LABS: Albumin 1.9 G/DL (3.4-5.0); Bilirubin,Total 0.7 MG/DL (0.2-1.0); Calcium 7.9 MG/DL (8.5-10.1); Total Protein 5.4 G/DL (6.4-8.3)
[2020-04-25 07:11] LABS: Band Neutrophils 1 % (0-10); Lymphocytes 12 % (20-55); Metamyelocytes 1 %; Platelet Estimate Decreased; Segmented Neutrophils 78 % (50-85); Total Cells Counted 100
[2020-04-25] MEDS: SODIUM CHLOR 0.9% KCL 20 MEQ 20 MEQ/1,000 ML BAG IV SCH ×3 (09:33→16:52)
[2020-04-25] MEDS: ASPIRIN EC 81 MG TABLET PO SCH (10:18)
[2020-04-25] MEDS: METOPROLOL SUCCINATE XL 25 MG TABLET PO SCH (10:18)
[2020-04-25] MEDS: PANTOPRAZOLE 40 MG TABLET PO SCH (10:18)
[2020-04-25] MEDS: APIXABAN 5 MG TABLET PO SCH ×2 (10:18→20:58)
[2020-04-25] MEDS: DOCUSATE SODIUM 100 MG CAPSULE PO SCH ×2 (10:18→20:58)
[2020-04-25] MEDS: AMIODARONE 200 MG TABLET PO SCH ×2 (10:18→20:58)
[2020-04-25] MEDS: MONTELUKAST 10 MG TABLET PO SCH (10:18)
[2020-04-25] MEDS: FUROSEMIDE 40 MG/4 ML VIAL IV SCH (10:19)
[2020-04-25] MEDS: ALBUMIN 25% 25 GM in PREMIX 1 EACH IV SCH ×2 (10:23→17:04)
[2020-04-25] MEDS: POTASSIUM CHLORIDE 20 MEQ TABLET PO PRN ×4 (10:28→16:52)
[2020-04-25] MEDS ORDERED: MAGNESIUM SULF RIDER 2 GM in PREMIX 1 EACH IV ONE (13:01)
[2020-04-25] MEDS: ALBUTEROL/IPRATROPIUM 3 ML NEB RESP TX SCH (20:12)
[2020-04-25] MEDS: ROSUVASTATIN 20 MG TABLET PO SCH (20:58)
[2020-04-26] MEDS: ALBUTEROL/IPRATROPIUM 3 ML NEB RESP TX SCH ×2 (01:45→07:11)
[2020-04-26] MEDS: ALBUMIN 25% 25 GM in PREMIX 1 EACH IV SCH ×2 (02:14→12:39)
[2020-04-26] MEDS: PIPERACILLIN/TAZOBACTAM 3,375 MG in SODIUM CHLORIDE 0.9% 100 ML IV SCH (03:19)
[2020-04-26 05:57] LABS: Basophils % 0.2 % (0.0-0.8); Eosinophils # 0.1 10*3/uL (0.0-0.87); Eosinophils % 2.7 % (0.00-10.9); Hematocrit 23.7 VOL% (42.0-52.0); Hemoglobin 7.8 GM/DL (14.0-18.0); Immature Granulocytes % 1.2 %; Immature Granulocytes Absolute 0.05 #; Lymphocytes # 0.7 10*3/uL (1.4-4.0); Lymphocytes % 16.7 % (21.2-54.2); Mean Corpuscular HGB Conc 32.9 GM/DL (32-36); Mean Corpuscular Volume 87.1 FL (87-102); Mean Platelet Volume 10.6 FL (9.6-12.0); Monocytes % 7.1 % (1.7-12.7); Neutrophils % 72.1 % (38.7-73.9); Red Blood Count 2.72 MC/CUMM (3.8-5.5); Red Cell Distribution Width 22.9 % (9.3-17.3); White Blood Count 4.1 T/CUMM (4-12)
[2020-04-26 06:04] LABS: Platelet Count 65 T/CUMM (130-400)
[2020-04-26 06:18] LABS: Hypochromasia 1+; Ovalocytes Slight; Platelet Estimate Decreased
[2020-04-26 06:33] LABS: Albumin 2.6 G/DL (3.4-5.0); Bilirubin,Total 0.7 MG/DL (0.2-1.0); Calcium 8.5 MG/DL (8.5-10.1); Total Protein 5.7 G/DL (6.4-8.3)
[2020-04-26] MEDS ORDERED: LEVOFLOXACIN INJ 500 MG in PREMIX 1 EACH IV SCH (08:00)
[2020-04-26] MEDS ORDERED: LEVOFLOXACIN 500 MG TABLET PO SCH (09:00)
[2020-04-26] MEDS: MONTELUKAST 10 MG TABLET PO SCH (09:06)
[2020-04-26] MEDS: APIXABAN 5 MG TABLET PO SCH (09:06)
[2020-04-26] MEDS: METOPROLOL SUCCINATE XL 25 MG TABLET PO SCH (09:06)
[2020-04-26] MEDS: DOCUSATE SODIUM 100 MG CAPSULE PO SCH (09:06)
[2020-04-26] MEDS: AMIODARONE 200 MG TABLET PO SCH (09:06)
[2020-04-26] MEDS: PANTOPRAZOLE 40 MG TABLET PO SCH (09:06)
[2020-04-26] MEDS: ASPIRIN EC 81 MG TABLET PO SCH (09:07)
[2020-04-26] MEDS: FUROSEMIDE 40 MG/4 ML VIAL IV SCH (09:15)
[2020-04-26 12:25] VITALS: BP 100/52
== END 2020-04-26 12:47 | disposition home health service (06) | DRG 699 ==
LOC: N.ED 20:48 → N.EDINP 04-21 02:26 → N.3E 04-21 17:10
PROVIDERS: ADMIT Family Medicine; ATTEND Family Medicine

== ENCOUNTER 2020-04-27 18:03 | Inpatient (IN) ==
[2020-04-27] MEDS ORDERED: FUROSEMIDE 100 MG/10 ML VIAL IV STA (18:31)
[2020-04-27] MEDS ORDERED: ALBUTEROL/IPRATROPIUM 3 ML NEB RESP TX STA (18:31)
[2020-04-27] MEDS ORDERED: ONDANSETRON 4 MG/2 ML VIAL IV STA (18:31)
[2020-04-27 18:48] LABS: Basophils % 0.4 % (0.0-0.8); Eosinophils # 0.2 10*3/uL (0.0-0.87); Eosinophils % 3.9 % (0.00-10.9); Hematocrit 27.6 VOL% (42.0-52.0); Immature Granulocytes Absolute 0.05 #; Lymphocytes % 20.2 % (21.2-54.2); Mean Corpuscular HGB Conc 32.6 GM/DL (32-36); Mean Corpuscular Volume 87.3 FL (87-102); Mean Platelet Volume 11.4 FL (9.6-12.0); Monocytes % 5.6 % (1.7-12.7); Neutrophils % 68.9 % (38.7-73.9); Platelet Count 90 T/CUMM (130-400); Red Blood Count 3.16 MC/CUMM (3.8-5.5); Red Cell Distribution Width 22.9 % (9.3-17.3); White Blood Count 4.9 T/CUMM (4-12)
[2020-04-27 18:57] LABS: Albumin 2.5 G/DL (3.4-5.0); Bilirubin,Total 0.9 MG/DL (0.2-1.0); Calcium 8.7 MG/DL (8.5-10.1); Osmolality,Calculated 272.8 MOS/KG (273-304); Total Protein 6.4 G/DL (6.4-8.3)
[2020-04-27] MEDS ORDERED: POTASSIUM CHLORIDE 20 MEQ TABLET PO STA (19:00)
[2020-04-27] MEDS ORDERED: MAGNESIUM SULF RIDER 2 GM in PREMIX 1 EACH IV STA (19:00)
[2020-04-27 19:12] LABS: INR 1.3; PT Patient Result 13.5 SECS (9.8-11.9)
[2020-04-27 19:19] LABS: Apearance,Urine CLEAR (Clear); Bilirubin,Urine Negative (Negative); Blood, Urine Moderate mg/dL (Negative); Glucose,Urine (UA) Negative (Negative); Hyaline Casts,Urine 4 /LPF (0-3); Ketones,Urine Negative (Negative); Mucus,Urine Occasional /LPF (Occasional); Nitrite,Urine Negative (Negative); Protein,Urine Negative; RBC,Urine 6 /HPF (0-4); Squamous Epithelial Cell,Urine Occasional /HPF (0-10); Urine Color Straw (Yellow); Urine Specific Gravity 1.008 (1.001-1.035); Urine Urobilinogen < 2.0 EU/DL (0.2-1.0); WBC,Urine 11 /HPF (0-6)
[2020-04-27] MEDS ORDERED: cefTRIAXone 1,000 MG in SODIUM CHLORIDE 0.9% 100 ML IV STA (19:31)
[2020-04-27] MEDS ORDERED: MORPHINE 4 MG/1 ML VIAL IV PRN (20:01)
[2020-04-27] MEDS: ALBUTEROL/IPRATROPIUM 3 ML NEB RESP TX SCH (23:15)
[2020-04-28] MEDS: DOCUSATE SODIUM 100 MG CAPSULE PO SCH ×3 (00:50→20:38)
[2020-04-28] MEDS: SODIUM CHLORIDE 0.9% 1,000 ML IV SCH ×3 (00:50→23:50)
[2020-04-28] MEDS: ALBUTEROL/IPRATROPIUM 3 ML NEB RESP TX SCH ×5 (03:08→18:58)
[2020-04-28 04:59] LABS: Apearance,Urine CLEAR (Clear); Bacteria,Urine Occasional /HPF (Few); Bilirubin,Urine Negative (Negative); Blood, Urine Small mg/dL (Negative); Glucose,Urine (UA) Negative (Negative); Ketones,Urine Negative (Negative); Mucus,Urine Occasional /LPF (Occasional); Nitrite,Urine Negative (Negative); Protein,Urine 30 MG/DL; RBC,Urine 25 /HPF (0-4); Squamous Epithelial Cell,Urine Occasional /HPF (0-10); Urine Color Yellow (Yellow); Urine Specific Gravity 1.017 (1.001-1.035); WBC,Urine 11 /HPF (0-6)
[2020-04-28 06:11] LABS: Basophils % 0.5 % (0.0-0.8); Eosinophils # 0.1 10*3/uL (0.0-0.87); Eosinophils % 2.9 % (0.00-10.9); Hematocrit 26.4 VOL% (42.0-52.0); Hemoglobin 8.8 GM/DL (14.0-18.0); Immature Granulocytes Absolute 0.04 #; Lymphocytes # 0.8 10*3/uL (1.4-4.0); Lymphocytes % 19.9 % (21.2-54.2); Mean Corpuscular HGB Conc 33.3 GM/DL (32-36); Mean Corpuscular Volume 85.7 FL (87-102); Mean Platelet Volume 10.9 FL (9.6-12.0); Monocytes % 6.2 % (1.7-12.7); Neutrophils % 69.5 % (38.7-73.9); Red Blood Count 3.08 MC/CUMM (3.8-5.5); Red Cell Distribution Width 22.9 % (9.3-17.3); White Blood Count 4.2 T/CUMM (4-12)
[2020-04-28 06:17] LABS: Platelet Count 78 T/CUMM (130-400)
[2020-04-28 06:37] LABS: Albumin 2.2 G/DL (3.4-5.0); Bilirubin,Total 0.6 MG/DL (0.2-1.0); Calcium 8.3 MG/DL (8.5-10.1); Osmolality,Calculated 272.8 MOS/KG (273-304); Prealbumin 6.6 MG/DL (20-40); Risk Ratio 4.13; Total Protein 5.7 G/DL (6.4-8.3); VLDL CHOLESTEROL 14.2 MG/DL
[2020-04-28 06:40] LABS: Hypochromasia 1+; Microcytosis Slight; Ovalocytes Slight; Platelet Estimate Decreased
[2020-04-28] MEDS: FUROSEMIDE 40 MG/4 ML VIAL IV SCH ×2 (09:20→16:42)
[2020-04-28] MEDS: LINEZOLID INJ 600 MG in PREMIX 1 EACH IV SCH ×2 (09:20→20:51)
[2020-04-28] MEDS: DILTIAZEM CD 240 MG CAPSULE PO SCH (09:20)
[2020-04-28] MEDS: ASPIRIN EC 81 MG TABLET PO SCH (09:20)
[2020-04-28] MEDS: APIXABAN 5 MG TABLET PO SCH ×2 (09:21→20:39)
[2020-04-28] MEDS: POTASSIUM CHLORIDE 20 MEQ TABLET PO SCH ×2 (09:21→20:39)
[2020-04-28] MEDS: PANTOPRAZOLE 40 MG TABLET PO SCH (09:22)
[2020-04-28] MEDS: METOPROLOL SUCCINATE XL 25 MG TABLET PO SCH (09:22)
[2020-04-28] MEDS: AMIODARONE 200 MG TABLET PO SCH ×2 (09:22→20:39)
[2020-04-28] MEDS ORDERED: TUBERCULIN SKIN TEST 0.1 ML SYRINGE INTRADERM ONE (18:30)
[2020-04-28] MEDS: ACETAMINOPHEN 325 MG TABLET PO PRN (20:38)
[2020-04-28] MEDS: ROSUVASTATIN 20 MG TABLET PO SCH (20:39)
[2020-04-28 21:22] LABS: ABG Base Excess 4.6 MMOL/L (-2.5-2.5); ABG HCO3 28.5 MMOL/L (20-26); ABG Oxygen Saturation 96.5 % (95-100); ABG PCO2 31.5 MM HG (35-48); ABG PH 7.536 (7.35-7.45); ABG PO2 92.5 MM HG (80-95); ABG TCO2 23.2 MMOL/L (23-27)
[2020-04-28 21:42] LABS: Calcium 8.3 MG/DL (8.5-10.1); Osmolality,Calculated 271.1 MOS/KG (273-304)
[2020-04-28] MEDS ORDERED: METOPROLOL TARTRATE 5 MG/5 ML VIAL IV ONE (21:58)
[2020-04-28] MEDS ORDERED: FUROSEMIDE 40 MG/4 ML VIAL IV ONE (21:59)
[2020-04-29] MEDS: ALBUTEROL/IPRATROPIUM 3 ML NEB RESP TX SCH (00:06)
[2020-04-29] MEDS: ALBUTEROL INHALER 18 GM INH SCH ×4 (01:32→18:56)
[2020-04-29] MEDS: ACETAMINOPHEN 325 MG TABLET PO PRN ×3 (02:30→17:56)
[2020-04-29 05:39] LABS: Basophils % 0.3 % (0.0-0.8); Eosinophils # 0.1 10*3/uL (0.0-0.87); Eosinophils % 2.8 % (0.00-10.9); Hematocrit 23.3 VOL% (42.0-52.0); Hemoglobin 7.6 GM/DL (14.0-18.0); Immature Granulocytes % 1.8 %; Immature Granulocytes Absolute 0.07 #; Lymphocytes # 0.9 10*3/uL (1.4-4.0); Lymphocytes % 22.4 % (21.2-54.2); Mean Corpuscular HGB Conc 32.6 GM/DL (32-36); Mean Corpuscular Volume 86.6 FL (87-102); Mean Platelet Volume 11.7 FL (9.6-12.0); Monocytes % 6.5 % (1.7-12.7); Neutrophils % 66.2 % (38.7-73.9); Platelet Count 102 T/CUMM (130-400); Red Blood Count 2.69 MC/CUMM (3.8-5.5); Red Cell Distribution Width 22.5 % (9.3-17.3)
[2020-04-29 06:18] LABS: Albumin 1.9 G/DL (3.4-5.0); Bilirubin,Total 0.6 MG/DL (0.2-1.0); Calcium 8.1 MG/DL (8.5-10.1); Osmolality,Calculated 268.2 MOS/KG (273-304); Thyroid Stimulating Hormone 1.92 uIU/ml (0.358-3.74); Total Protein 5.2 G/DL (6.4-8.3)
[2020-04-29 06:45] LABS: Acanthocytes Few; Anisocytosis 1+; Band Neutrophils 6 % (0-10); Elliptocytes Few; Eosinophils 1 % (0-10); Hypochromasia 3+; Lymphocytes 21 % (20-55); Macrocytosis 1+; Ovalocytes 1+; Platelet Estimate Decreased; Segmented Neutrophils 65 % (50-85); Target Cells 2+; Total Cells Counted 100
[2020-04-29] MEDS: METOPROLOL SUCCINATE XL 25 MG TABLET PO SCH (08:51)
[2020-04-29] MEDS: POTASSIUM CHLORIDE 20 MEQ TABLET PO SCH ×2 (08:52→20:48)
[2020-04-29] MEDS: DOCUSATE SODIUM 100 MG CAPSULE PO SCH ×3 (08:52→20:47)
[2020-04-29] MEDS: AMIODARONE 200 MG TABLET PO SCH ×2 (08:52→20:47)
[2020-04-29] MEDS: FUROSEMIDE 40 MG/4 ML VIAL IV SCH ×2 (08:52→16:37)
[2020-04-29] MEDS: PANTOPRAZOLE 40 MG TABLET PO SCH (08:52)
[2020-04-29] MEDS: ASPIRIN EC 81 MG TABLET PO SCH (08:52)
[2020-04-29] MEDS: APIXABAN 5 MG TABLET PO SCH ×2 (08:52→20:48)
[2020-04-29] MEDS: DILTIAZEM CD 240 MG CAPSULE PO SCH (08:52)
[2020-04-29] MEDS: LINEZOLID INJ 600 MG in PREMIX 1 EACH IV SCH ×2 (09:49→20:11)
[2020-04-29] MEDS: PIPERACILLIN/TAZOBACTAM 3,375 MG in SODIUM CHLORIDE 0.9% 100 ML IV SCH ×2 (12:42→21:32)
[2020-04-29] MEDS: ONDANSETRON 4 MG/2 ML VIAL IV PRN (17:57)
[2020-04-29] MEDS: ROSUVASTATIN 20 MG TABLET PO SCH (20:47)
[2020-04-29] MEDS: SODIUM CHLORIDE 0.9% 1,000 ML IV SCH ×2 (23:55→23:57)
[2020-04-30] MEDS: ALBUTEROL INHALER 18 GM INH SCH ×5 (00:13→23:59)
[2020-04-30] MEDS: ACETAMINOPHEN 325 MG TABLET PO PRN ×2 (01:45→10:49)
[2020-04-30 03:57] LABS: Basophils % 0.5 % (0.0-0.8); Eosinophils # 0.2 10*3/uL (0.0-0.87); Eosinophils % 3.5 % (0.00-10.9); Hematocrit 23.8 VOL% (42.0-52.0); Immature Granulocytes % 0.5 %; Immature Granulocytes Absolute 0.02 #; Lymphocytes % 22.7 % (21.2-54.2); Mean Corpuscular HGB Conc 33.6 GM/DL (32-36); Mean Platelet Volume 10.9 FL (9.6-12.0); Monocytes % 5.3 % (1.7-12.7); Neutrophils % 67.5 % (38.7-73.9); Platelet Count 110 T/CUMM (130-400); Red Cell Distribution Width 21.9 % (9.3-17.3); White Blood Count 4.3 T/CUMM (4-12)
[2020-04-30 04:21] LABS: Bilirubin,Total 1.5 MG/DL (0.2-1.0); Calcium 8.5 MG/DL (8.5-10.1); Osmolality,Calculated 265.4 MOS/KG (273-304); Total Protein 5.4 G/DL (6.4-8.3)
[2020-04-30] MEDS: PIPERACILLIN/TAZOBACTAM 3,375 MG in SODIUM CHLORIDE 0.9% 100 ML IV SCH ×3 (04:31→20:35)
[2020-04-30 04:45] LABS: Eosinophils 2 % (0-10); Lymphocytes 18 % (20-55); Segmented Neutrophils 77 % (50-85); Total Cells Counted 100
[2020-04-30 04:46] LABS: Acanthocytes Few; Anisocytosis 1+; Ovalocytes 1+; Platelet Estimate Adequate; Polychromasia Slight
[2020-04-30] MEDS ORDERED: POTASSIUM CHLORIDE RIDER 10 MEQ in PREMIX 1 EACH IV PRN (06:32)
[2020-04-30] MEDS: DILTIAZEM CD 240 MG CAPSULE PO SCH (08:40)
[2020-04-30] MEDS: FUROSEMIDE 40 MG/4 ML VIAL IV SCH ×2 (08:40→16:35)
[2020-04-30] MEDS: APIXABAN 5 MG TABLET PO SCH ×2 (08:40→20:07)
[2020-04-30] MEDS: ASPIRIN EC 81 MG TABLET PO SCH (08:40)
[2020-04-30] MEDS: PANTOPRAZOLE 40 MG TABLET PO SCH (08:41)
[2020-04-30] MEDS: METOPROLOL SUCCINATE XL 25 MG TABLET PO SCH (08:41)
[2020-04-30] MEDS: DOCUSATE SODIUM 100 MG CAPSULE PO SCH ×2 (08:41→20:04)
[2020-04-30] MEDS: LINEZOLID INJ 600 MG in PREMIX 1 EACH IV SCH ×2 (08:41→20:05)
[2020-04-30] MEDS: AMIODARONE 200 MG TABLET PO SCH ×2 (08:41→20:04)
[2020-04-30] MEDS: POTASSIUM CHLORIDE 20 MEQ TABLET PO SCH ×2 (08:41→20:04)
[2020-04-30] MEDS: POTASSIUM CHLORIDE RIDER 10 MEQ in PREMIX 1 EACH IV PRN ×4 (10:05→16:10)
[2020-04-30] MEDS: ROSUVASTATIN 20 MG TABLET PO SCH (20:03)
[2020-04-30] MEDS ORDERED: clonazePAM 0.5 MG TABLET PO SCH (21:00)
[2020-04-30] MEDS: ONDANSETRON 4 MG/2 ML VIAL IV PRN (23:58)
[2020-05-01] MEDS: PIPERACILLIN/TAZOBACTAM 3,375 MG in SODIUM CHLORIDE 0.9% 100 ML IV SCH ×3 (05:54→22:03)
[2020-05-01 05:59] LABS: Basophils % 0.5 % (0.0-0.8); Eosinophils # 0.1 10*3/uL (0.0-0.87); Eosinophils % 1.8 % (0.00-10.9); Hematocrit 24.3 VOL% (42.0-52.0); Immature Granulocytes % 1.1 %; Immature Granulocytes Absolute 0.05 #; Lymphocytes # 0.7 10*3/uL (1.4-4.0); Lymphocytes % 15.9 % (21.2-54.2); Mean Corpuscular HGB Conc 32.9 GM/DL (32-36); Mean Corpuscular Volume 85.6 FL (87-102); Monocytes % 3.6 % (1.7-12.7); Neutrophils % 77.1 % (38.7-73.9); Platelet Count 132 T/CUMM (130-400); Red Blood Count 2.84 MC/CUMM (3.8-5.5); Red Cell Distribution Width 21.7 % (9.3-17.3); White Blood Count 4.4 T/CUMM (4-12)
[2020-05-01 06:25] LABS: Eosinophils 1 % (0-10); Hypochromasia Slight; Lymphocytes 18 % (20-55); Microcytosis Slight; Ovalocytes Slight; Platelet Estimate Normal; Segmented Neutrophils 76 % (50-85); Total Cells Counted 100
[2020-05-01 06:26] LABS: Albumin 1.8 G/DL (3.4-5.0); Bilirubin,Total 0.7 MG/DL (0.2-1.0); Calcium 8.4 MG/DL (8.5-10.1); Osmolality,Calculated 267.5 MOS/KG (273-304); Risk Ratio 3.19; Total Protein 5.4 G/DL (6.4-8.3); VLDL CHOLESTEROL 11.8 MG/DL
[2020-05-01] MEDS: ALBUTEROL INHALER 18 GM INH SCH ×3 (07:15→18:28)
[2020-05-01] MEDS: DILTIAZEM CD 240 MG CAPSULE PO SCH (08:46)
[2020-05-01] MEDS: FUROSEMIDE 40 MG/4 ML VIAL IV SCH (08:46)
[2020-05-01] MEDS: DOCUSATE SODIUM 100 MG CAPSULE PO SCH ×2 (08:46→21:00)
[2020-05-01] MEDS: APIXABAN 5 MG TABLET PO SCH (08:47)
[2020-05-01] MEDS: POTASSIUM CHLORIDE 20 MEQ TABLET PO SCH ×2 (08:47→21:00)
[2020-05-01] MEDS: PANTOPRAZOLE 40 MG TABLET PO SCH (08:47)
[2020-05-01] MEDS: METOPROLOL SUCCINATE XL 25 MG TABLET PO SCH (08:47)
[2020-05-01] MEDS: ASPIRIN EC 81 MG TABLET PO SCH (08:47)
[2020-05-01] MEDS: AMIODARONE 200 MG TABLET PO SCH ×2 (08:47→21:00)
[2020-05-01] MEDS: LINEZOLID INJ 600 MG in PREMIX 1 EACH IV SCH ×2 (08:47→21:01)
[2020-05-01] MEDS: SODIUM CHLORIDE 0.9% 1,000 ML IV SCH (12:54)
[2020-05-01] MEDS: APIXABAN 2.5 MG TABLET PO SCH (21:00)
[2020-05-01] MEDS: ROSUVASTATIN 20 MG TABLET PO SCH (21:00)
[2020-05-01] MEDS: ACETAMINOPHEN 325 MG TABLET PO PRN (22:04)
[2020-05-01] MEDS: TEMAZEPAM 15 MG CAPSULE PO PRN (22:21)
[2020-05-02] MEDS: ALBUTEROL INHALER 18 GM INH SCH ×2 (00:47→06:19)
[2020-05-02] MEDS: PIPERACILLIN/TAZOBACTAM 3,375 MG in SODIUM CHLORIDE 0.9% 100 ML IV SCH ×3 (04:27→22:45)
[2020-05-02] MEDS: SODIUM CHLORIDE 0.9% 1,000 ML IV SCH ×2 (05:29→22:44)
[2020-05-02 05:33] LABS: Basophils % 0.2 % (0.0-0.8); Eosinophils # 0.1 10*3/uL (0.0-0.87); Eosinophils % 1.6 % (0.00-10.9); Hematocrit 24.2 VOL% (42.0-52.0); Immature Granulocytes % 1.4 %; Immature Granulocytes Absolute 0.08 #; Lymphocytes # 0.6 10*3/uL (1.4-4.0); Lymphocytes % 11.3 % (21.2-54.2); Mean Corpuscular HGB Conc 33.1 GM/DL (32-36); Mean Corpuscular Volume 85.8 FL (87-102); Mean Platelet Volume 11.4 FL (9.6-12.0); Neutrophils % 82.5 % (38.7-73.9); Platelet Count 160 T/CUMM (130-400); Red Blood Count 2.82 MC/CUMM (3.8-5.5); Red Cell Distribution Width 21.6 % (9.3-17.3); White Blood Count 5.6 T/CUMM (4-12)
[2020-05-02 05:57] LABS: Eosinophils 2 % (0-10); Hypochromasia 1+; Lymphocytes 6 % (20-55); Microcytosis Slight; Nucleated Red Blood Cells 1 (0-5); Platelet Estimate Adequate; Segmented Neutrophils 90 % (50-85); Total Cells Counted 100
[2020-05-02 05:58] LABS: Ovalocytes Slight
[2020-05-02 07:05] LABS: Albumin 1.6 G/DL (3.4-5.0); Calcium 8.4 MG/DL (8.5-10.1); Osmolality,Calculated 269.2 MOS/KG (273-304); Total Protein 5.3 G/DL (6.4-8.3)
[2020-05-02] MEDS: FUROSEMIDE 40 MG/4 ML VIAL IV SCH (09:38)
[2020-05-02] MEDS: LINEZOLID INJ 600 MG in PREMIX 1 EACH IV SCH ×2 (09:38→21:22)
[2020-05-02] MEDS: APIXABAN 2.5 MG TABLET PO SCH ×2 (09:40→21:34)
[2020-05-02] MEDS: DOCUSATE SODIUM 100 MG CAPSULE PO SCH ×3 (09:40→21:33)
[2020-05-02] MEDS: AMIODARONE 200 MG TABLET PO SCH ×2 (09:40→21:33)
[2020-05-02] MEDS: ASPIRIN EC 81 MG TABLET PO SCH (09:40)
[2020-05-02] MEDS: POTASSIUM CHLORIDE 20 MEQ TABLET PO SCH ×2 (09:40→21:33)
[2020-05-02] MEDS: PANTOPRAZOLE 40 MG TABLET PO SCH (09:41)
[2020-05-02] MEDS: METOPROLOL SUCCINATE XL 25 MG TABLET PO SCH (09:41)
[2020-05-02] MEDS ORDERED: DILTIAZEM CD 180 MG CAPSULE PO SCH (11:07)
[2020-05-02] MEDS ORDERED: POTASSIUM CHLORIDE 20 MEQ TABLET PO ONE (12:35)
[2020-05-02] MEDS: ALBUTEROL/IPRATROPIUM 3 ML NEB RESP TX SCH ×2 (13:28→19:19)
[2020-05-02] MEDS: ROSUVASTATIN 20 MG TABLET PO SCH (21:33)
[2020-05-02] MEDS: METOPROLOL SUCCINATE XL 50 MG TABLET PO SCH (21:33)
[2020-05-02] MEDS: TEMAZEPAM 15 MG CAPSULE PO PRN (23:05)
[2020-05-03] MEDS: ALBUTEROL/IPRATROPIUM 3 ML NEB RESP TX SCH ×4 (02:33→20:20)
[2020-05-03] MEDS: ACETAMINOPHEN 325 MG TABLET PO PRN (03:06)
[2020-05-03] MEDS: PIPERACILLIN/TAZOBACTAM 3,375 MG in SODIUM CHLORIDE 0.9% 100 ML IV SCH ×3 (05:10→20:44)
[2020-05-03] MEDS ORDERED: DILTIAZEM CD 120 MG CAPSULE PO SCH (09:00)
[2020-05-03] MEDS: PANTOPRAZOLE 40 MG TABLET PO SCH (09:18)
[2020-05-03] MEDS: ASPIRIN EC 81 MG TABLET PO SCH (09:18)
[2020-05-03] MEDS: APIXABAN 2.5 MG TABLET PO SCH ×2 (09:18→20:45)
[2020-05-03] MEDS: METOPROLOL SUCCINATE XL 50 MG TABLET PO SCH (09:19)
[2020-05-03] MEDS: AMIODARONE 200 MG TABLET PO SCH ×2 (09:19→20:44)
[2020-05-03] MEDS: DOCUSATE SODIUM 100 MG CAPSULE PO SCH ×2 (09:19→20:45)
[2020-05-03] MEDS: POTASSIUM CHLORIDE 20 MEQ TABLET PO SCH ×2 (09:19→20:44)
[2020-05-03] MEDS: FUROSEMIDE 40 MG/4 ML VIAL IV SCH ×2 (09:19→16:42)
[2020-05-03] MEDS: LINEZOLID INJ 600 MG in PREMIX 1 EACH IV SCH ×2 (09:20→20:43)
[2020-05-03] MEDS: ROSUVASTATIN 20 MG TABLET PO SCH (20:44)
[2020-05-03] MEDS: ASCORBIC ACID 500 MG TABLET PO SCH (20:44)
[2020-05-03] MEDS: METOPROLOL TARTRATE 25 MG TABLET PO SCH (20:48)
[2020-05-03] MEDS: SODIUM CHLORIDE 0.9% 1,000 ML IV SCH (20:49)
[2020-05-03] MEDS: ONDANSETRON 4 MG/2 ML VIAL IV PRN (21:55)
[2020-05-04] MEDS: ALBUTEROL/IPRATROPIUM 3 ML NEB RESP TX SCH ×4 (01:37→19:43)
[2020-05-04] MEDS: PIPERACILLIN/TAZOBACTAM 3,375 MG in SODIUM CHLORIDE 0.9% 100 ML IV SCH ×3 (04:54→20:37)
[2020-05-04 05:18] LABS: Basophils % 0.2 % (0.0-0.8); Eosinophils % 0.1 % (0.00-10.9); Hematocrit 27.8 VOL% (42.0-52.0); Hemoglobin 8.9 GM/DL (14.0-18.0); Immature Granulocytes % 1.4 %; Immature Granulocytes Absolute 0.15 #; Lymphocytes # 1.4 10*3/uL (1.4-4.0); Lymphocytes % 13.9 % (21.2-54.2); Mean Corpuscular Volume 87.7 FL (87-102); Monocytes % 3.5 % (1.7-12.7); Neutrophils % 80.9 % (38.7-73.9); Platelet Count 252 T/CUMM (130-400); Red Blood Count 3.17 MC/CUMM (3.8-5.5); White Blood Count 10.4 T/CUMM (4-12)
[2020-05-04 05:53] LABS: Calcium 8.5 MG/DL (8.5-10.1); Osmolality,Calculated 270.2 MOS/KG (273-304)
[2020-05-04 05:56] LABS: Albumin 1.8 G/DL (3.4-5.0); Bilirubin,Total 1.1 MG/DL (0.2-1.0); Calcium 8.4 MG/DL (8.5-10.1); Osmolality,Calculated 272.1 MOS/KG (273-304); Total Protein 5.8 G/DL (6.4-8.3)
[2020-05-04] MEDS: FUROSEMIDE 40 MG/4 ML VIAL IV SCH (08:31)
[2020-05-04] MEDS: POTASSIUM CHLORIDE 20 MEQ TABLET PO SCH ×2 (08:32→20:36)
[2020-05-04] MEDS: ASCORBIC ACID 500 MG TABLET PO SCH ×2 (08:32→20:36)
[2020-05-04] MEDS: PANTOPRAZOLE 40 MG TABLET PO SCH (08:32)
[2020-05-04] MEDS: ASPIRIN EC 81 MG TABLET PO SCH (08:32)
[2020-05-04] MEDS: METOPROLOL TARTRATE 25 MG TABLET PO SCH ×2 (08:32→20:36)
[2020-05-04] MEDS: AMIODARONE 200 MG TABLET PO SCH (08:32)
[2020-05-04] MEDS: APIXABAN 2.5 MG TABLET PO SCH ×2 (08:32→20:37)
[2020-05-04] MEDS: DOCUSATE SODIUM 100 MG CAPSULE PO SCH ×2 (08:32→20:38)
[2020-05-04] MEDS: LINEZOLID INJ 600 MG in PREMIX 1 EACH IV SCH ×2 (08:34→20:37)
[2020-05-04] MEDS: methylPREDNISolone SOD SUC 40 MG/1 ML VIAL IV SCH ×3 (08:46→20:37)
[2020-05-04] MEDS: ACETAMINOPHEN 325 MG TABLET PO PRN (09:43)
[2020-05-04] MEDS: FUROSEMIDE 40 MG TABLET PO SCH (15:15)
[2020-05-04] MEDS: ROSUVASTATIN 20 MG TABLET PO SCH (20:38)
[2020-05-04] MEDS: TEMAZEPAM 15 MG CAPSULE PO PRN (21:43)
[2020-05-05] MEDS: ALBUTEROL/IPRATROPIUM 3 ML NEB RESP TX SCH ×5 (01:54→19:22)
[2020-05-05] MEDS: methylPREDNISolone SOD SUC 40 MG/1 ML VIAL IV SCH ×4 (04:16→22:09)
[2020-05-05] MEDS: PIPERACILLIN/TAZOBACTAM 3,375 MG in SODIUM CHLORIDE 0.9% 100 ML IV SCH ×3 (04:16→22:12)
[2020-05-05 06:15] LABS: Calcium 8.7 MG/DL (8.5-10.1); Osmolality,Calculated 269.7 MOS/KG (273-304)
[2020-05-05 06:21] LABS: Basophils % 0.1 % (0.0-0.8); Hematocrit 31.3 VOL% (42.0-52.0); Hemoglobin 9.5 GM/DL (14.0-18.0); Immature Granulocytes % 1.4 %; Lymphocytes # 0.8 10*3/uL (1.4-4.0); Lymphocytes % 10.5 % (21.2-54.2); Mean Corpuscular HGB Conc 30.4 GM/DL (32-36); Mean Corpuscular Volume 93.4 FL (87-102); Mean Platelet Volume 11.9 FL (9.6-12.0); Monocytes % 1.4 % (1.7-12.7); Neutrophils % 86.6 % (38.7-73.9); Platelet Count 217 T/CUMM (130-400); Red Blood Count 3.35 MC/CUMM (3.8-5.5); Red Cell Distribution Width 22.3 % (9.3-17.3); White Blood Count 7.3 T/CUMM (4-12)
[2020-05-05 06:55] LABS: Anisocytosis 2+; Macrocytosis 2+
[2020-05-05 06:56] LABS: Platelet Estimate Normal
[2020-05-05] MEDS ORDERED: PROMETHAZINE 25 MG/1 ML VIAL IM ONE (07:00)
[2020-05-05] MEDS ORDERED: MEPERIDINE 50 MG/1 ML VIAL IM ONE (07:00)
[2020-05-05 07:04] LABS: Elliptocytes 2+; Rouleau 2+
[2020-05-05] MEDS ORDERED: MIDAZOLAM 2 MG/2 ML VIAL ONE (07:22)
[2020-05-05] MEDS ORDERED: LIDOCAINE 2% VISCOUS 100 ML BOTTLE SWISH/SPIT ONE (07:30)
[2020-05-05] MEDS ORDERED: MIDAZOLAM 2 MG/2 ML VIAL IV ONE (07:30)
[2020-05-05] MEDS ORDERED: LIDOCAINE 2% 20 ML VIAL RESP TX ONE (07:30)
[2020-05-05] MEDS ORDERED: LIDOCAINE 1% 20 ML VIAL MISC INJ ONE (07:30)
[2020-05-05] MEDS: METOPROLOL TARTRATE 25 MG TABLET PO SCH ×2 (08:53→22:16)
[2020-05-05] MEDS: FUROSEMIDE 40 MG TABLET PO SCH ×2 (08:53→16:17)
[2020-05-05] MEDS: DOCUSATE SODIUM 100 MG CAPSULE PO SCH ×3 (08:53→22:15)
[2020-05-05] MEDS: ASPIRIN EC 81 MG TABLET PO SCH (08:53)
[2020-05-05] MEDS: ASCORBIC ACID 500 MG TABLET PO SCH ×2 (08:54→22:15)
[2020-05-05] MEDS: POTASSIUM CHLORIDE 20 MEQ TABLET PO SCH ×2 (08:54→22:16)
[2020-05-05] MEDS: APIXABAN 2.5 MG TABLET PO SCH ×2 (08:54→22:15)
[2020-05-05] MEDS: PANTOPRAZOLE 40 MG TABLET PO SCH (09:04)
[2020-05-05] MEDS: SODIUM CHLORIDE 0.9% 1,000 ML IV SCH (09:38)
[2020-05-05] MEDS: LINEZOLID INJ 600 MG in PREMIX 1 EACH IV SCH (10:05)
[2020-05-05] MEDS: ACETAMINOPHEN 325 MG TABLET PO PRN (14:55)
[2020-05-05] MEDS: TEMAZEPAM 15 MG CAPSULE PO PRN (22:14)
[2020-05-05] MEDS: ROSUVASTATIN 20 MG TABLET PO SCH (22:15)
[2020-05-06] MEDS: ALBUTEROL/IPRATROPIUM 3 ML NEB RESP TX SCH ×4 (01:00→20:10)
[2020-05-06] MEDS: methylPREDNISolone SOD SUC 40 MG/1 ML VIAL IV SCH ×4 (03:36→22:10)
[2020-05-06] MEDS: PIPERACILLIN/TAZOBACTAM 3,375 MG in SODIUM CHLORIDE 0.9% 100 ML IV SCH ×3 (04:39→22:11)
[2020-05-06 04:56] LABS: Basophils % 0.1 % (0.0-0.8); Hemoglobin 9.2 GM/DL (14.0-18.0); Immature Granulocytes % 1.3 %; Immature Granulocytes Absolute 0.13 #; Lymphocytes # 0.7 10*3/uL (1.4-4.0); Lymphocytes % 6.6 % (21.2-54.2); Mean Corpuscular HGB Conc 31.7 GM/DL (32-36); Mean Corpuscular Volume 88.4 FL (87-102); Mean Platelet Volume 11.3 FL (9.6-12.0); NRBC # 0.02 10*3/uL; Platelet Count 271 T/CUMM (130-400); Red Blood Count 3.28 MC/CUMM (3.8-5.5); Red Cell Distribution Width 21.9 % (9.3-17.3); White Blood Count 10.1 T/CUMM (4-12)
[2020-05-06 05:14] LABS: Calcium 8.7 MG/DL (8.5-10.1)
[2020-05-06 05:15] LABS: Calcium 8.8 MG/DL (8.5-10.1); Osmolality,Calculated 279.8 MOS/KG (273-304)
[2020-05-06] MEDS ORDERED: DIGOXIN 0.5 MG/2 ML AMP IV ONE (08:34)
[2020-05-06] MEDS: APIXABAN 2.5 MG TABLET PO SCH ×2 (09:11→22:10)
[2020-05-06] MEDS: ASCORBIC ACID 500 MG TABLET PO SCH ×2 (09:11→22:10)
[2020-05-06] MEDS: METOPROLOL TARTRATE 25 MG TABLET PO SCH ×2 (09:11→22:09)
[2020-05-06] MEDS: PANTOPRAZOLE 40 MG TABLET PO SCH (09:12)
[2020-05-06] MEDS: DOCUSATE SODIUM 100 MG CAPSULE PO SCH ×2 (09:12→22:11)
[2020-05-06] MEDS: POTASSIUM CHLORIDE 20 MEQ TABLET PO SCH ×2 (09:12→22:09)
[2020-05-06] MEDS: FUROSEMIDE 40 MG TABLET PO SCH ×2 (09:12→15:42)
[2020-05-06] MEDS: ASPIRIN EC 81 MG TABLET PO SCH (09:12)
[2020-05-06] MEDS: ACETAMINOPHEN 325 MG TABLET PO PRN (15:42)
[2020-05-06] MEDS: TEMAZEPAM 15 MG CAPSULE PO PRN (22:10)
[2020-05-06] MEDS: ROSUVASTATIN 20 MG TABLET PO SCH (22:10)
[2020-05-07] MEDS: ALBUTEROL/IPRATROPIUM 3 ML NEB RESP TX SCH ×4 (01:12→19:09)
[2020-05-07] MEDS: methylPREDNISolone SOD SUC 40 MG/1 ML VIAL IV SCH ×4 (03:43→21:27)
[2020-05-07 04:44] LABS: Basophils % 0.1 % (0.0-0.8); Hematocrit 29.9 VOL% (42.0-52.0); Hemoglobin 9.3 GM/DL (14.0-18.0); Immature Granulocytes % 1.1 %; Immature Granulocytes Absolute 0.15 #; Lymphocytes # 0.7 10*3/uL (1.4-4.0); Lymphocytes % 5.3 % (21.2-54.2); Mean Corpuscular HGB Conc 31.1 GM/DL (32-36); Mean Corpuscular Volume 90.1 FL (87-102); Monocytes % 3.8 % (1.7-12.7); NRBC # 0.03 10*3/uL; Neutrophils % 89.7 % (38.7-73.9); Platelet Count 284 T/CUMM (130-400); Red Blood Count 3.32 MC/CUMM (3.8-5.5); Red Cell Distribution Width 22.1 % (9.3-17.3); White Blood Count 13.5 T/CUMM (4-12)
[2020-05-07 05:09] LABS: Hypochromasia Slight; Platelet Estimate Normal
[2020-05-07 05:38] LABS: Calcium 8.6 MG/DL (8.5-10.1)
[2020-05-07] MEDS ORDERED: DIGOXIN 0.5 MG/2 ML AMP IV ONE (08:01)
[2020-05-07] MEDS: POTASSIUM CHLORIDE 20 MEQ TABLET PO SCH ×2 (08:37→21:26)
[2020-05-07] MEDS: ASPIRIN EC 81 MG TABLET PO SCH (08:38)
[2020-05-07] MEDS: DOCUSATE SODIUM 100 MG CAPSULE PO SCH ×2 (08:38→21:27)
[2020-05-07] MEDS: FUROSEMIDE 40 MG TABLET PO SCH ×2 (08:38→14:59)
[2020-05-07] MEDS: APIXABAN 2.5 MG TABLET PO SCH ×2 (08:38→21:26)
[2020-05-07] MEDS: PANTOPRAZOLE 40 MG TABLET PO SCH (08:38)
[2020-05-07] MEDS: METOPROLOL TARTRATE 25 MG TABLET PO SCH ×2 (08:39→21:26)
[2020-05-07] MEDS: ASCORBIC ACID 500 MG TABLET PO SCH ×2 (09:38→21:26)
[2020-05-07] MEDS: DIGOXIN 0.125 MG TABLET PO SCH (13:38)
[2020-05-07] MEDS: ROSUVASTATIN 20 MG TABLET PO SCH (21:26)
[2020-05-07] MEDS: TEMAZEPAM 15 MG CAPSULE PO PRN (21:35)
[2020-05-08] MEDS: ALBUTEROL/IPRATROPIUM 3 ML NEB RESP TX SCH ×4 (00:45→19:38)
[2020-05-08] MEDS: methylPREDNISolone SOD SUC 40 MG/1 ML VIAL IV SCH ×4 (03:20→20:46)
[2020-05-08 06:28] LABS: Basophils % 0.1 % (0.0-0.8); Hematocrit 29.5 VOL% (42.0-52.0); Hemoglobin 9.3 GM/DL (14.0-18.0); Immature Granulocytes % 2.5 %; Immature Granulocytes Absolute 0.41 #; Lymphocytes # 0.6 10*3/uL (1.4-4.0); Lymphocytes % 3.8 % (21.2-54.2); Mean Corpuscular HGB Conc 31.5 GM/DL (32-36); Mean Corpuscular Volume 90.2 FL (87-102); Mean Platelet Volume 10.7 FL (9.6-12.0); Monocytes % 5.1 % (1.7-12.7); NRBC # 0.04 10*3/uL; Neutrophils % 88.5 % (38.7-73.9); Platelet Count 281 T/CUMM (130-400); Red Blood Count 3.27 MC/CUMM (3.8-5.5); Red Cell Distribution Width 22.4 % (9.3-17.3); White Blood Count 16.1 T/CUMM (4-12)
[2020-05-08 06:56] LABS: Calcium 8.6 MG/DL (8.5-10.1); Osmolality,Calculated 279.8 MOS/KG (273-304)
[2020-05-08 07:12] LABS: Anisocytosis 1+; Hypochromasia 1+; Lymphocytes 5 % (20-55); Macrocytosis 1+; Polychromasia Slight; Segmented Neutrophils 91 % (50-85); Total Cells Counted 100
[2020-05-08 07:13] LABS: Ovalocytes Slight; Platelet Estimate Normal
[2020-05-08] MEDS: FUROSEMIDE 40 MG TABLET PO SCH ×2 (09:18→16:31)
[2020-05-08] MEDS: ASCORBIC ACID 500 MG TABLET PO SCH ×2 (09:18→20:39)
[2020-05-08] MEDS: DOCUSATE SODIUM 100 MG CAPSULE PO SCH ×3 (09:18→20:50)
[2020-05-08] MEDS: POTASSIUM CHLORIDE 20 MEQ TABLET PO SCH ×2 (09:18→20:39)
[2020-05-08] MEDS: ASPIRIN EC 81 MG TABLET PO SCH (09:19)
[2020-05-08] MEDS: PANTOPRAZOLE 40 MG TABLET PO SCH (09:19)
[2020-05-08] MEDS: METOPROLOL TARTRATE 25 MG TABLET PO SCH ×2 (09:19→20:39)
[2020-05-08] MEDS: APIXABAN 2.5 MG TABLET PO SCH ×2 (09:19→20:39)
[2020-05-08] MEDS: DIGOXIN 0.125 MG TABLET PO SCH (12:50)
[2020-05-08] MEDS: ROSUVASTATIN 20 MG TABLET PO SCH (20:39)
[2020-05-08] MEDS: TEMAZEPAM 15 MG CAPSULE PO PRN (20:39)
[2020-05-09] MEDS: ALBUTEROL/IPRATROPIUM 3 ML NEB RESP TX SCH ×4 (01:00→19:40)
[2020-05-09] MEDS: methylPREDNISolone SOD SUC 40 MG/1 ML VIAL IV SCH ×4 (03:40→20:41)
[2020-05-09 05:18] LABS: Basophils % 0.1 % (0.0-0.8); Hematocrit 31.2 VOL% (42.0-52.0); Hemoglobin 9.7 GM/DL (14.0-18.0); Immature Granulocytes % 2.9 %; Immature Granulocytes Absolute 0.52 #; Lymphocytes # 0.7 10*3/uL (1.4-4.0); Lymphocytes % 3.8 % (21.2-54.2); Mean Corpuscular HGB Conc 31.1 GM/DL (32-36); Mean Corpuscular Volume 91.5 FL (87-102); Mean Platelet Volume 10.5 FL (9.6-12.0); Monocytes % 5.6 % (1.7-12.7); NRBC # 0.05 10*3/uL; Neutrophils % 87.6 % (38.7-73.9); Platelet Count 328 T/CUMM (130-400); Red Blood Count 3.41 MC/CUMM (3.8-5.5); White Blood Count 18.2 T/CUMM (4-12)
[2020-05-09 05:31] LABS: Calcium 8.5 MG/DL (8.5-10.1); Osmolality,Calculated 283.5 MOS/KG (273-304)
[2020-05-09] MEDS: ONDANSETRON 4 MG/2 ML VIAL IV PRN (05:43)
[2020-05-09 06:04] LABS: Hypochromasia Slight; Lymphocytes 8 % (20-55); Platelet Estimate Normal; Segmented Neutrophils 88 % (50-85); Total Cells Counted 100
[2020-05-09] MEDS: PANTOPRAZOLE 40 MG TABLET PO SCH (08:34)
[2020-05-09] MEDS: DOCUSATE SODIUM 100 MG CAPSULE PO SCH ×2 (08:34→20:32)
[2020-05-09] MEDS: ASCORBIC ACID 500 MG TABLET PO SCH ×2 (08:34→20:32)
[2020-05-09] MEDS: METOPROLOL TARTRATE 25 MG TABLET PO SCH ×2 (08:34→20:31)
[2020-05-09] MEDS: FUROSEMIDE 40 MG TABLET PO SCH ×2 (08:34→15:49)
[2020-05-09] MEDS: ASPIRIN EC 81 MG TABLET PO SCH (08:35)
[2020-05-09] MEDS: POTASSIUM CHLORIDE 20 MEQ TABLET PO SCH ×2 (08:35→20:32)
[2020-05-09] MEDS: APIXABAN 2.5 MG TABLET PO SCH ×2 (08:35→20:32)
[2020-05-09] MEDS: DIGOXIN 0.125 MG TABLET PO SCH (13:22)
[2020-05-09] MEDS: TEMAZEPAM 15 MG CAPSULE PO PRN (20:31)
[2020-05-09] MEDS: ROSUVASTATIN 20 MG TABLET PO SCH (20:32)
[2020-05-10] MEDS: ALBUTEROL/IPRATROPIUM 3 ML NEB RESP TX SCH ×4 (01:07→19:20)
[2020-05-10] MEDS: methylPREDNISolone SOD SUC 40 MG/1 ML VIAL IV SCH ×4 (03:30→20:43)
[2020-05-10] MEDS: ONDANSETRON 4 MG/2 ML VIAL IV PRN (07:17)
[2020-05-10] MEDS: ASPIRIN EC 81 MG TABLET PO SCH (08:50)
[2020-05-10] MEDS: APIXABAN 2.5 MG TABLET PO SCH ×2 (08:50→20:43)
[2020-05-10] MEDS: PANTOPRAZOLE 40 MG TABLET PO SCH (08:50)
[2020-05-10] MEDS: METOPROLOL TARTRATE 25 MG TABLET PO SCH ×2 (08:50→20:44)
[2020-05-10] MEDS: DOCUSATE SODIUM 100 MG CAPSULE PO SCH ×2 (08:50→20:43)
[2020-05-10] MEDS: FUROSEMIDE 40 MG TABLET PO SCH ×2 (08:50→15:15)
[2020-05-10] MEDS: ASCORBIC ACID 500 MG TABLET PO SCH ×2 (08:50→20:43)
[2020-05-10] MEDS: POTASSIUM CHLORIDE 20 MEQ TABLET PO SCH ×2 (08:50→20:44)
[2020-05-10] MEDS: cefTRIAXone 1,000 MG in SYRINGE 1 EACH IV SCH (12:51)
[2020-05-10] MEDS: DIGOXIN 0.125 MG TABLET PO SCH (12:51)
[2020-05-10] MEDS: MONTELUKAST 10 MG TABLET PO SCH (12:51)
[2020-05-10] MEDS: FLUCONAZOLE 200 MG TABLET PO SCH (13:06)
[2020-05-10] MEDS: ROSUVASTATIN 20 MG TABLET PO SCH (20:43)
[2020-05-10] MEDS: TEMAZEPAM 15 MG CAPSULE PO PRN (22:16)
[2020-05-11] MEDS: ALBUTEROL/IPRATROPIUM 3 ML NEB RESP TX SCH ×3 (00:39→13:20)
[2020-05-11] MEDS: methylPREDNISolone SOD SUC 40 MG/1 ML VIAL IV SCH ×3 (03:00→16:44)
[2020-05-11] MEDS: ONDANSETRON 4 MG/2 ML VIAL IV PRN (04:23)
[2020-05-11] MEDS ORDERED: Pomalidomide [Pomalyst] 2 MG PO SCH (09:00)
[2020-05-11] MEDS: ACETAMINOPHEN 325 MG TABLET PO PRN (09:15)
[2020-05-11] MEDS: MONTELUKAST 10 MG TABLET PO SCH (09:16)
[2020-05-11] MEDS: APIXABAN 2.5 MG TABLET PO SCH (09:16)
[2020-05-11] MEDS: ASCORBIC ACID 500 MG TABLET PO SCH (09:17)
[2020-05-11] MEDS: POTASSIUM CHLORIDE 20 MEQ TABLET PO SCH (09:17)
[2020-05-11] MEDS: METOPROLOL TARTRATE 25 MG TABLET PO SCH (09:17)
[2020-05-11] MEDS: PANTOPRAZOLE 40 MG TABLET PO SCH (09:17)
[2020-05-11] MEDS: FLUCONAZOLE 200 MG TABLET PO SCH (09:17)
[2020-05-11] MEDS: ASPIRIN EC 81 MG TABLET PO SCH (09:17)
[2020-05-11] MEDS: FUROSEMIDE 40 MG TABLET PO SCH ×2 (09:17→16:44)
[2020-05-11] MEDS: DOCUSATE SODIUM 100 MG CAPSULE PO SCH (09:17)
[2020-05-11] MEDS: DIGOXIN 0.125 MG TABLET PO SCH (13:53)
[2020-05-11] MEDS: cefTRIAXone 1,000 MG in SYRINGE 1 EACH IV SCH (13:53)
[2020-05-11] MEDS ORDERED: APIXABAN 5 MG TABLET PO SCH (13:54)
[2020-05-11 16:23] VITALS: BP 103/59
== END 2020-05-11 19:07 | DRG 871 ==
LOC: EDBD → EDUNIT# → N.EDINP 18:03 → N.ED 18:03 → N.4E 22:49 → N.2E 04-28 23:15 → N.4E 05-03 11:16
PROVIDERS: ADMIT Family Medicine; ATTEND Family Medicine